=== PATIENT | male | born 1990 | race Caucasian/White ===

== ENCOUNTER 2023-05-24 04:02 | Inpatient (IN) ==
[2023-05-24] MEDS: SODIUM CHLORIDE 0.9% 1,000 ML IV ONE (04:33)
[2023-05-24 04:51] LABS: Albumin Globulin Ratio 2.3 (0.9-2); Albumin Level 4.8 gm/dl (3.4-5.0); BUN Creatinine Ratio 16.7 (10-20); Bilirubin,Total 0.3 mg/dl (0.2-1.0); Calcium 9.6 mg/dl (8.6-10.3); Creatinine Clr Calc Pharmacy 135.1 ml/min; Est GFR (African American) 135.2 ml/min; Est GFR (Non-African American) 116.7 ml/min; Globulin 2.1 gm/dl (2.5-4.0); Potassium 3.9 mmol/L (3.5-5.1); Total Protein 6.9 gm/dl (6.0-8.3)
[2023-05-24 04:52] LABS: Basophils # (auto) 0.05 K/uL (0.00-0.20); Basophils % (auto) 0.3 %; Eosinophils # (auto) 0.03 K/uL (0.00-0.50); Eosinophils % (auto) 0.2 %; Hematocrit (blood only) 41.1 % (42.0-52.0); Hemoglobin 14.7 g/dl (14.0-18.0); Immature Granulocytes # (auto) 0.06 K/uL (0.01-0.20); Immature Granulocytes % (auto) 0.4 %; Lymphocytes # (auto) 1.18 K/uL (1.20-3.40); Lymphocytes % (auto) 8.2 %; Mean Corpuscular Hemoglobin 32.9 pg (25.0-34.0); Mean Corpuscular Hgb Conc 35.8 g/dL (32.0-36.0); Mean Corpuscular Volume 91.9 fL (80.0-100.0); Mean Platelet Volume 9.2 fL (9.4-12.4); Monocytes # (auto) 0.75 K/uL (0.11-0.59); Monocytes % (auto) 5.2 %; Neutrophils % (auto) 85.7 %; Platelet Count 365 K/uL (130-400); RDW Coefficient of Variation 12.3 % (11.5-14.5); RDW Standard Deviation 41.5 fL (36.4-46.3); Red Blood Count 4.47 M/uL (4.70-6.10); White Blood Count 14.47 K/ul (4.8-10.8)
--- NOTE | 2023-05-24 05:00 | Emergency Department Note ---
Impression & Plan Status epilepticus, Traumatic hematoma of forehead Admit to the [facility] ED Provider Note NAME: SHLOMO [id number] MUMTAZ AGE: 32 SEX: Male INFORMANT: Patient and guards ED PROVIDER(S): Kathryn Thornton DO CHIEF COMPLAINT: Seizure PLAN: Disposition: Admit to the [facility] MEDICAL DECISION MAKING: This is a 32-year-old male patient from [facility] Miguelito who presents to the emergency department after having a seizure in his cell. Patient had been seen here yesterday for a polysubstance overdose. He was cleared and discharged back to the retirement. Was on a one-to-one with guards and had been sleeping. He woke up and went to the bathroom. He was pacing around the cell when he suffered a seizure fell to the ground striking his head on the toilet. Guards found him seizing. He became postictal and was brought back to the emergency department with a hematoma noted to his right forehead. Care/management discussed with: ar manager and [facility] Triage Nursing notes: Reviewed and agree with them. Vital Signs: reviewed and remarkable for hypertension and tachycardia Additional History obtained from: Nursing Home guards who are at the bedside Chronic Medical/Social Conditions affecting care: Epilepsy on Keppra and Depakote Prior/ Outside/ External records reviewed: Records that accompanied the patient from the retirement and his ED record from earlier this evening Differential Diagnosis: Epileptic seizure versus seizure secondary to his polysubstance overdose from yesterday Diagnostics, independently interpreted by me: ECG: Sinus tachycardia at a rate of [address] segment elevation or signs of ischemia. There is no ectopy. QTc was 451 ms. QRS duration was 88 ms. Cardiac Monitoring: Sinus tachycardia at 126 CT scan of the brain and cervical spine: As per stat read HPI: 32 year old Male arrives for evaluation of seizure. Patient had been discharged last evening from the emergency department after a polysubstance overdose and workup. He was back in his cell on a one-to-one with guards. Patient had been sleeping when he got up and was pacing about his present cell. Guards heard a thud and found him on the floor seizing, striking his head off the toilet. PAST MEDICAL HISTORY: Polysubstance overdose yesterday with Tylenol, laxative, Motrin. 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 Pupils are equal, round, and reactive to light. Extraocular eye muscles are intact and sclera are anicteric. There is an old contusion noted around the right eye. Ears - bilaterally patent canals with no evidence of hemotympanum. Nose - moist nasal mucosa without evidence of trauma or discharge. Mouth - moist buccal mucosa with no trauma to the teeth or signs of malocclusion. Neck: The cervical collar was removed while in-line stabilization was maintained. The neck is supple and there is no pain to palpation over the posterior cervical spine and no obvious step-offs or deformities. There is no JVD or tracheal deviation. Chest: There are no signs of deformities, contusions or abrasions to the chest wall. There is no obvious crepitus or paradoxical chest rise. Heart: Tachycardic rate and regular rhythm. There is a normal S1 and S2 with no murmurs, clicks, or gallops appreciated. Lungs: Clear to auscultation bilaterally with no wheezes, rales, or rhonchi. Abdomen: Soft, completely nontender, nondistended, with good bowel sounds. There is no sign of trauma such as contusions, abrasions or penetrations. There are no palpable pulsatile masses or hepatosplenomegaly. There is no guarding, rigidity, or rebound noted. Pelvis: Stable to rock and compression. Extremities: No obvious trauma, deformities, contusions, or edema. There are easily palpable peripheral pulses. Neuro: The patient is awake and alert and easily able to follow commands. Muscle strength is 5 out of 5 in all 4 extremities. Otherwise, neuro exam is unremarkable. Emergency department treatment: hospital monitor, IV Keppra, IV normal saline bolus, IV Ativan Emergency department course: The patient was evaluated in room A-10. I did review the records from yesterday with regards to his polysubstance overdose. Laboratory studies were drawn as above. Patient went for CT scan of the brain and cervical spine. Upon returning from radiology, the patient went into a tonic-clonic seizure. He was bolused with IV Ativan. The seizure stopped. The patient was bolused with IV normal saline solution. Patient was given a loading dose of IV Keppra. Patient was postictal for some time. Vitals began to return to normal. I discussed the case with the [facility] Hospitalist and they will evaluate for further inpatient care. Past Med/Surg History Social History Smoking Status: Light tobacco smoker Tobacco Type: Cigarettes Preferred Language: Turkmen Communication Ability: Effective Lending Consultant Required: No Current Living Situation: Other Current Living Situation Comment: retirement Feels Safe at Home: Yes Allergies Allergies Allergy/AdvReac Type Severity Reaction Status Date / Time Penicillins AdvReac Rash Verified 05/23/23 22:37 trazodone AdvReac Anxiety Verified 05/23/23 22:37 Home Meds Home Medications Medication Instructions Recorded Confirmed acetaminophen 325 mg tablet 325 mg PO TID PRN Pain 05/24/23 05/24/23 (Tylenol) calcium polycarbophil 625 mg 1,250 mg PO DAILY 05/24/23 05/24/23 tablet (FiberCon) divalproex 250 mg tablet,delayed 250 mg PO BID 05/24/23 05/24/23 release (Depakote) guanfacine 1 mg tablet 1 mg PO HS 05/24/23 05/24/23 ibuprofen 600 mg tablet 600 mg PO TID PRN Pain 05/24/23 05/24/23 levetiracetam 500 mg tablet 1,500 mg PO BID 05/24/23 05/24/23 (Keppra) mirtazapine 15 mg tablet (Remeron) 15 mg PO HS 05/24/23 05/24/23 paroxetine HCl 40 mg tablet (Paxil) 40 mg PO HS 05/24/23 05/24/23 sulfamethoxazole 800 1 tab PO BID 05/24/23 05/24/23 mg-trimethoprim 160 mg tablet (Bactrim DS) Results & Data (ED) Vital Signs Vital Signs - 24 hr 05/24/23 04:06 05/24/23 04:06 Temperature 36.9 C Temperature Source Oral Pulse Rate 126 H 137 H Respiratory Rate 19 Blood Pressure 150/81 H Blood Pressure Mean 104 Pulse Oximetry 94 Oxygen Delivery Method Room Air Sepsis Recent Fever Within 48 Hours No Sepsis New/Unexplained Change in Mental Status No Sepsis Action Taken by Nursing No Action Required Laboratory Data 05/25/23 05:27 05/25/23 05:27 Lab Results 05/24/23 05/24/23 Range/Units 04:16 06:40 WBC 14.47 H (4.8-10.8) K/ul RBC 4.47 L (4.70-6.10) M/uL Hgb 14.7 (14.0-18.0) g/dl Hct 41.1 L (42.0-52.0) % MCV 91.9 (80.0-100.0) fL MCH 32.9 (25.0-34.0) pg MCHC 35.8 (32.0-36.0) g/dL RDW Std Deviation 41.5 (36.4-46.3) fL RDW Coeff of James 12.3 (11.5-14.5) % Plt Count 365 (130-400) K/uL MPV 9.2 L (9.4-12.4) fL Immature Gran % (Auto) 0.4 % Neut % (Auto) 85.7 % Lymph % (Auto) 8.2 % [place] % (Auto) 5.2 % Eos % (Auto) 0.2 % Baso % (Auto) 0.3 % Neut # (Auto) 12.40 H (1.40-6.50) K/uL Lymph # (Auto) 1.18 L (1.20-3.40) K/uL [place] # (Auto) 0.75 H (0.11-0.59) K/uL Eos # (Auto) 0.03 (0.00-0.50) K/uL Baso # (Auto) 0.05 (0.00-0.20) K/uL Immature Gran # (Auto) 0.06 (0.01-0.20) K/uL Sodium 138 (136-145) mmol/L Potassium 3.9 (3.5-5.1) mmol/L Chloride 104 (98-107) mmol/L Carbon Dioxide 22 (21-32) mmol/L Anion Gap 12 H (3-11) BUN 14 (6-23) mg/dl Creatinine 0.84 (0.6-1.4) mg/dl Est Cr Clr Drug Dosing 135.1 ml/min Est GFR ( Amer) 135.2 ml/min Est GFR (Non-Af Amer) 116.7 ml/min BUN/Creatinine Ratio 16.7 (10-20) Glucose 80 (70-99(Fasting)) mg/dl Calcium 9.6 (8.6-10.3) mg/dl Total Bilirubin 0.3 (0.2-1.0) mg/dl AST 21 (13-39) U/L ALT 23 (7-52) U/L Alkaline Phosphatase 65 (34-104) U/L Total Protein 6.9 (6.0-8.3) gm/dl Albumin 4.8 (3.4-5.0) gm/dl Globulin 2.1 L (2.5-4.0) gm/dl Albumin/Globulin Ratio 2.3 H (0.9-2) Valproic Acid 17 L (50-100) mcg/ml Administered Medications Cephalexin HCl (Cephalexin 500 Mg Cap) 500 mg PO QID [facility]; Protocol Stop: 05/31/23 20:59 Last Admin: 05/25/23 08:57 Dose: 500 mg Documented By: Admin: 05/24/23 21:49 Dose: 500 mg Documented By: ISAÍAS Guanfacine HCl (Guanfacine Hcl 1 Mg Tab) 1 mg PO [facility] Stop: 06/23/23 20:59 Last Admin: 05/24/23 21:49 Dose: 1 mg Documented By: ISAÍAS Levetiracetam 1,500 mg/ Sodium (Chloride) 115 mls @ 460 mls/hr IV Q12H [facility]IDEN Stop: 06/23/23 10:29 Last Infusion: 05/25/23 11:15 Dose: Infused Documented By: Admin: 05/25/23 10:15 Dose: 460 mls/hr Documented By: Infusion: 05/24/23 22:09 Dose: Infused Documented By: Admin: 05/24/23 21:54 Dose: 460 mls/hr Documented By: Infusion: 05/24/23 10:43 Dose: Infused Documented By: Admin: 05/24/23 10:28 Dose: 460 mls/hr Documented By: REE Mirtazapine (Mirtazapine Tab 15 Mg Tab) 15 mg PO [facility] Stop: 06/23/23 20:59 Last Admin: 05/24/23 21:48 Dose: 15 mg Documented By: ISAÍAS Paroxetine HCl (Paroxetine Hcl 20 Mg Tab) 40 mg PO DAILY [facility]IDEN Stop: 06/23/23 10:29 Last Admin: 05/25/23 08:58 Dose: 40 mg Documented By: Admin: 05/24/23 10:28 Dose: 40 mg Documented By: REE Valproic Acid (Valproic Acid Soln 250 Mg/5 Ml Udc) 250 mg PO QAM AIDEN Stop: 06/24/23 08:59 Last Admin: 05/25/23 08:57 Dose: 250 mg Documented By: BryceO Discontinued Medications Sodium Chloride (Nss) 1,000 mls @ 999 mls/hr IV .Q1H1M ONE Stop: 05/24/23 05:26 Last Infusion: 05/24/23 06:07 Dose: Infused Documented By: Admin: 05/24/23 04:33 Dose: 999 mls/hr Documented By: KAREN Sodium Chloride (Nss) 1,000 mls @ 125 mls/hr IV .Q8H AIDEN Stop: 05/25/23 02:02 Last Infusion: 05/25/23 03:58 Dose: Infused Documented By: Admin: 05/24/23 19:58 Dose: 125 mls/hr Documented By: Infusion: 05/24/23 10:44 Dose: Infused Documented By: Admin: 05/24/23 10:29 Dose: 125 mls/hr Documented By: REE Valproic Acid 250 mg/ Dextrose 52.5 mls @ 55 mls/hr IV BID AIDEN Stop: 06/23/23 10:29 Last Infusion: 05/24/23 12:34 Dose: Infused Documented By: Admin: 05/24/23 10:51 Dose: 55 mls/hr Documented By: REE Valproic Acid 1,000 mg/ (Dextrose) 110 mls @ 110 mls/hr IV NOW STA Stop: 05/24/23 16:51 Last Infusion: 05/24/23 20:50 Dose: Infused Documented By: Admin: 05/24/23 17:36 Dose: 110 mls/hr Documented By: JODEE Levetiracetam (Levetiracetam 500 Mg/5 Ml Vial) 3,550 mg 40 mg/kg (3550 mg) IV NOW STA Stop: 05/24/23 05:29 Last Admin: 05/24/23 05:44 Dose: 3,550 mg Documented By: KAREN Lorazepam (Lorazepam 1 Mg/1 Ml Syr Ed Inj Use) Confirm Administered Dose 1 mg .ROUTE .STK-MED ONE Stop: 05/24/23 05:11 Last Admin: 05/24/23 05:21 Dose: Not Given Documented By: KAREN Lorazepam (Lorazepam 1 Mg/1 Ml Syr Ed Inj Use) Confirm Administered Dose 1 mg .ROUTE .STK-MED ONE Stop: 05/24/23 05:14 Last Admin: 05/24/23 05:21 Dose: Not Given Documented By: KAREN Lorazepam (Lorazepam 1 Mg/1 Ml Syr Ed Inj Use) 2 mg IV ONE STA Stop: 05/24/23 05:18 Last Admin: 05/24/23 05:18 Dose: 2 mg Documented By: KAREN Discharge Plan Visit Data Chief Complaint: Seizure Stated Complaint: SEIZURE ED Provider: Kathryn Thornton Discharge Problem: Status epilepticus, Traumatic hematoma of forehead Patient Disposition: Admitted As Inpatient Discharge Instructions Interventions: ED Discharge Assessment Last Done: 05/24/23 20:22 Discharge Problem: Traumatic hematoma of forehead Qualifiers: Encounter type: initial encounter Qualified Code(s): S00.83XA - Contusion of other part of head, initial encounter
[2023-05-24] MEDS: LORazepam 1 MG/1 ML SYR ED Inj Use IV STA (05:18)
[2023-05-24] MEDS: LORazepam 1 MG/1 ML SYR ED Inj Use ONE ×2 (05:21)
[2023-05-24] MEDS: levETIRAcetam 500 MG/5 ML VIAL IV STA (05:44)
--- NOTE | 2023-05-24 06:05 | CT Scan Report ---
Exam(s): CT HEAD Without Contrast EXAM: CT Head Without Intravenous Contrast CLINICAL HISTORY: Reason for exam: fall. TECHNIQUE: Axial computed tomography images of the head/brain without intravenous contrast. Automated exposure control was utilized for the study. A dose lowering technique was utilized adhering to the principles of ALARA. COMPARISON: Comparison made to prior head CT from February 13, 2023. FINDINGS: Brain: Unremarkable. No hemorrhage. No significant white matter disease. No edema. Ventricles: Unremarkable. No ventriculomegaly. 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 No acute fracture. Soft tissues: Mild soft tissue swelling over the right forehead. Sinuses: Unremarkable as visualized. No acute sinusitis. Mastoid air cells: Unremarkable as visualized. No mastoid effusion. IMPRESSION: No evidence of acute intracranial pathology. Electronically signed by: Yulisa Ortiz MD 05/24/23 06:04 AM
--- NOTE | 2023-05-24 06:06 | CT Scan Report ---
Exam(s): CT C SPINE EXAM: CT Cervical Spine Without Intravenous Contrast CLINICAL HISTORY: Reason for exam: fall. TECHNIQUE: Axial computed tomography images of the cervical spine without intravenous contrast. Automated exposure control was utilized for the study. A dose lowering technique was utilized adhering to the principles of ALARA. COMPARISON: No relevant prior studies available. FINDINGS: Vertebrae: Unremarkable. No acute fracture. Discs/spinal canal/neural foramina: No acute findings. No spinal canal stenosis. Soft tissues: Prominent cervical lymph nodes. IMPRESSION: No evidence of acute cervical spine pathology. Electronically signed by: Yulisa Ortiz MD 05/24/23 06:06 AM
--- NOTE | 2023-05-24 07:44 | History & Physical Report ---
Date of Service May 24, 2023 Assessment & Plan (1) Seizure: Plan: 32-year-old male with past medically significant for seizures, depression comes from alf because of seizures. Patient was in the ER earlier with intentional drug overdose. Seems he took 30 tablets of Tylenol, 6 tablets of Motrin and the pack of Bactrim and sleeve fiber medication yesterday evening was trying to kill himself. Seems patient is on Bactrim for finger infection. Patient was observed in the ER. After 4 hours post Tylenol ingestion level was 110 which is below toxic level and was discharged back to alf. In alf patient had a seizure episode in the bathroom and strike his head on the toilet and was brought in here. Initially he was alert and awake as per ER but again he had another episode of seizure in the ER. He was given IV Keppra and IV Ativan in the ER. Currently patient is somewhat drowsy but arousable. Can tell his name. Knows he is in the hospital. Knows the year. But thinks its January. States has some headache. Denies any runny nose or sore throat. Denies cough. Denies any chest pain or shortness of breath. Denies nausea. Denies abdominal pain. Able to move his extremities on command. Seizures History of seizures Had one episode in the alf And another episode in the ER when he was treated as status epilepticus loaded with high-dose IV Keppra and IV Ativan Currently somewhat drowsy but arousable and seems comfortable Will continue with IV Keppra 1500 mg twice daily and IV Depakote 50 mg twice daily home dose Follow-up Keppra levels and Depakote levels IV Ativan as needed for breakthrough seizures EEG Seizure precautions Neurology consult Telemetry Psychiatric illness Continue home medications Intentional drug overdose With Tylenol, ibuprofen, Bactrim and fiber medication Suicidal attempt Will follow repeat Tylenol levels and LFTs and PT/INR Suicide precautions One-on-one Psych consult DVT prophylaxis SCDs for now Disposition telemetry Full code History of Present Illness Chief Complaint: Seizures Primary Care Provider: SANJEEV Farley 32-year-old male with past medical history significant for seizures, depression comes from alf because of seizures. Patient was in the ER earlier with intentional drug overdose. Seems he took 30 tablets of Tylenol, 6 tablets of Motrin and the pack of Bactrim and sleeve fiber medication yesterday evening as was trying to kill himself. Seems patient is on Bactrim for finger infection. Patient was observed in the ER. After 4 hours post Tylenol ingestion level was 110 which is below toxic level and was discharged back to alf. In alf patient had a seizure episode in the bathroom and strike his head on the toilet and was brought in here. Initially he was alert and awake as per ER but again he had another episode of seizure in the ER. He was given IV Keppra and IV Ativan in the ER. Currently patient is somewhat drowsy but arousable. Can tell his name. Knows he is in the hospital. Knows the year. But thinks its January. States has some headache. Denies any runny nose or sore throat. Denies cough. Denies any chest pain or shortness of breath. Denies nausea. Denies abdominal pain. Able to move his extremities on command. Past medical history. As mentioned above Past surgical history. Patient denies any surgeries. Social history. Patient denies smoking alcohol or drugs. Family history. Patient states as far as he knows no family history Allergies Allergy/AdvReac Type Severity Reaction Status Date / Time Penicillins AdvReac Rash Verified 05/23/23 22:37 trazodone AdvReac Anxiety Verified 05/23/23 22:37 Home Medications Medication Instructions Recorded Confirmed Type calcium polycarbophil 625 mg 1,250 mg PO DAILY 05/24/23 05/24/23 History tablet (FiberCon) divalproex 250 mg tablet,delayed 250 mg PO BID 05/24/23 05/24/23 History release (Depakote) guanfacine 1 mg tablet 1 mg PO HS 05/24/23 05/24/23 History ibuprofen 600 mg tablet 600 mg PO TID PRN Pain 05/24/23 05/24/23 History levetiracetam 500 mg tablet 1,500 mg PO BID 05/24/23 05/24/23 History (Keppra) mirtazapine 15 mg tablet (Remeron) 15 mg PO HS 05/24/23 05/24/23 History paroxetine HCl 40 mg tablet (Paxil) 40 mg PO DAILY 05/24/23 05/24/23 History sulfamethoxazole 800 1 tab PO BID 05/24/23 05/24/23 History mg-trimethoprim 160 mg tablet (Bactrim DS) Past Med/Surg History Social History Smoking Status: Light tobacco smoker Tobacco Type: Cigarettes Preferred Language: Bahraini Feels Safe at Home: Yes Review of Systems Review of Systems: Unobtainable due to reduced consciousness Physical Exam Physical Exam: General- rowsy but arousable Head- bruise seen on the face Eyes- PERRL. ENT- blood on tounge seen. Neck- supple, no JVD. Lungs- clear to auscultation no wheezing or crackles. Heart- regular rhythm; no murmur, no gallop. Abdomen- normal bowel sounds, soft, nontender, no distension Extremities- no pretibial edema, no erythema seen. Neuro- alert, oriented x 2; PERRL, no facial palsy; no dysarthria; moves extremities. Results & Data Results & Data Vital Signs (Past 12 Hours) Vital Signs Temp Pulse Resp BP Pulse Ox O2 Del Method 05/24/23 05:30 144 H 97 05/24/23 05:30 155 H 19 136/73 97 05/24/23 05:20 155 H 05/24/23 05:16 148 H 19 152/79 H 95 05/24/23 05:16 148 H 95 05/24/23 05:14 148 H 97 05/24/23 05:14 148 H 20 155/86 H 97 05/24/23 05:02 111 H 20 94 05/24/23 04:40 113 H 17 95 05/24/23 04:30 120 H 20 94 05/24/23 04:20 128 H 22 95 05/24/23 04:10 130 H 27 H 05/24/23 04:06 137 H 05/24/23 04:06 36.9 C 126 H 19 150/81 H 94 Room Air 05/24/23 04:05 136 H 25 H 150/81 H 95 05/24/23 04:05 136 H 25 H Diagnostic Findings Laboratory Results WBC 14.47 K/ul (4.8-10.8) H 05/24/23 04:16 RBC 4.47 M/uL (4.70-6.10) L 05/24/23 04:16 Hgb 14.7 g/dl (14.0-18.0) 05/24/23 04:16 Hct 41.1 % (42.0-52.0) L 05/24/23 04:16 MCV 91.9 fL (80.0-100.0) 05/24/23 04:16 MCH 32.9 pg (25.0-34.0) 05/24/23 04:16 MCHC 35.8 g/dL (32.0-36.0) 05/24/23 04:16 RDW Std Deviation 41.5 fL (36.4-46.3) 05/24/23 04:16 RDW Coeff of James 12.3 % (11.5-14.5) 05/24/23 04:16 Plt Count 365 K/uL (130-400) 05/24/23 04:16 MPV 9.2 fL (9.4-12.4) L 05/24/23 04:16 Immature Gran % (Auto) 0.4 % 05/24/23 04:16 Neut % (Auto) 85.7 % 05/24/23 04:16 Lymph % (Auto) 8.2 % 05/24/23 04:16 [place] % (Auto) 5.2 % 05/24/23 04:16 Eos % (Auto) 0.2 % 05/24/23 04:16 Baso % (Auto) 0.3 % 05/24/23 04:16 Neut # (Auto) 12.40 K/uL (1.40-6.50) H 05/24/23 04:16 Lymph # (Auto) 1.18 K/uL (1.20-3.40) L 05/24/23 04:16 [place] # (Auto) 0.75 K/uL (0.11-0.59) H 05/24/23 04:16 Eos # (Auto) 0.03 K/uL (0.00-0.50) 05/24/23 04:16 Baso # (Auto) 0.05 K/uL (0.00-0.20) 05/24/23 04:16 Immature Gran # (Auto) 0.06 K/uL (0.01-0.20) 05/24/23 04:16 Sodium 138 mmol/L (136-145) 05/24/23 04:16 Potassium 3.9 mmol/L (3.5-5.1) 05/24/23 04:16 Chloride 104 mmol/L (98-107) 05/24/23 04:16 Carbon Dioxide 22 mmol/L (21-32) 05/24/23 04:16 Anion Gap 12 (3-11) H 05/24/23 04:16 BUN 14 mg/dl (6-23) 05/24/23 04:16 Creatinine 0.84 mg/dl (0.6-1.4) 05/24/23 04:16 Est Cr Clr Drug Dosing 135.1 ml/min 05/24/23 04:16 Est GFR ( Amer) 135.2 ml/min 05/24/23 04:16 Est GFR (Non-Af Amer) 116.7 ml/min 05/24/23 04:16 BUN/Creatinine Ratio 16.7 (10-20) 05/24/23 04:16 Glucose 80 mg/dl (70-99(Fasting)) 05/24/23 04:16 Calcium 9.6 mg/dl (8.6-10.3) 05/24/23 04:16 Total Bilirubin 0.3 mg/dl (0.2-1.0) 05/24/23 04:16 AST 21 U/L (13-39) 05/24/23 04:16 ALT 23 U/L (7-52) 05/24/23 04:16 Alkaline Phosphatase 65 U/L (34-104) 05/24/23 04:16 Total Protein 6.9 gm/dl (6.0-8.3) 05/24/23 04:16 Albumin 4.8 gm/dl (3.4-5.0) 05/24/23 04:16 Globulin 2.1 gm/dl (2.5-4.0) L 05/24/23 04:16 Albumin/Globulin Ratio 2.3 (0.9-2) H 05/24/23 04:[address] 05/24/23 04:26 Exam(s): CT C SPINE EXAM: CT Cervical Spine Without Intravenous Contrast CLINICAL HISTORY: Reason for exam: fall. TECHNIQUE: Axial computed tomography images of the cervical spine without intravenous contrast. Automated exposure control was utilized for the study. A dose lowering technique was utilized adhering to the principles of ALARA. COMPARISON: No relevant prior studies available. FINDINGS: Vertebrae: Unremarkable. No acute fracture. Discs/spinal canal/neural foramina: No acute findings. No spinal canal stenosis. Soft tissues: Prominent cervical lymph nodes. IMPRESSION: No evidence of acute cervical spine pathology. Electronically signed by: Yulisa Ortiz MD 05/24/23 06:[address] 05/24/23 04:26 Exam(s): CT HEAD Without Contrast EXAM: CT Head Without Intravenous Contrast CLINICAL HISTORY: Reason for exam: fall. TECHNIQUE: Axial computed tomography images of the head/brain without intravenous contrast. Automated exposure control was utilized for the study. A dose lowering technique was utilized adhering to the principles of ALARA. COMPARISON: Comparison made to prior head CT from February 13, 2023. FINDINGS: Brain: Unremarkable. No hemorrhage. No significant white matter disease. No edema. Ventricles: Unremarkable. No ventriculomegaly. 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 No acute fracture. Soft tissues: Mild soft tissue swelling over the right forehead. Sinuses: Unremarkable as visualized. No acute sinusitis. Mastoid air cells: Unremarkable as visualized. No mastoid effusion. IMPRESSION: No evidence of acute intracranial pathology. Electronically signed by: Yulisa Ortiz MD 05/24/23 06:04 AM ECG Additional Comments: ECG. Sinus tachycardia rate of 131. Nonspecific T wave abnormalities Code Status & VTE Plan VTE Prophylaxis Plan VTE Prophylaxis will be ordered: Yes
[2023-05-24 08:27] LABS: Basophils # (auto) 0.03 K/uL (0.00-0.20); Basophils % (auto) 0.3 %; Eosinophils # (auto) 0.01 K/uL (0.00-0.50); Eosinophils % (auto) 0.1 %; Hematocrit (blood only) 36.7 % (42.0-52.0); Hemoglobin 13.4 g/dl (14.0-18.0); Immature Granulocytes # (auto) 0.04 K/uL (0.01-0.20); Immature Granulocytes % (auto) 0.4 %; Lymphocytes # (auto) 0.96 K/uL (1.20-3.40); Lymphocytes % (auto) 8.6 %; Mean Corpuscular Hemoglobin 33.5 pg (25.0-34.0); Mean Corpuscular Hgb Conc 36.5 g/dL (32.0-36.0); Mean Corpuscular Volume 91.8 fL (80.0-100.0); Mean Platelet Volume 9.3 fL (9.4-12.4); Monocytes % (auto) 6.2 %; Neutrophils # (auto) 9.48 K/uL (1.40-6.50); Neutrophils % (auto) 84.4 %; Platelet Count 323 K/uL (130-400); RDW Coefficient of Variation 12.5 % (11.5-14.5); RDW Standard Deviation 41.9 fL (36.4-46.3); White Blood Count 11.22 K/ul (4.8-10.8)
[2023-05-24 08:47] LABS: Albumin Globulin Ratio 2.3 (0.9-2); Albumin Level 4.3 gm/dl (3.4-5.0); BUN Creatinine Ratio 11.5 (10-20); Bilirubin Direct 0.1 mg/dl (0-0.2); Bilirubin,Total 0.3 mg/dl (0.2-1.0); Calcium 8.7 mg/dl (8.6-10.3); Creatinine Clr Calc Pharmacy 109.1 ml/min; Est GFR (African American) 110.4 ml/min; Est GFR (Non-African American) 95.2 ml/min; Globulin 1.9 gm/dl (2.5-4.0); Potassium 4.5 mmol/L (3.5-5.1); Total Protein 6.2 gm/dl (6.0-8.3)
[2023-05-24 08:52] LABS: INR 1.1 (0.9-1.1); Prothrombin Time 11.6 Seconds (9.0-12.0)
[2023-05-24] MEDS ORDERED: LORazepam 2 MG in SYRINGE 1 ML IV PRN (10:03)
[2023-05-24] MEDS ORDERED: NITROGLYCERIN SL 0.4 MG/TAB TAB SL PRN (10:03)
[2023-05-24] MEDS: PARoxetine HCL 20 MG TAB PO SCH (10:28)
[2023-05-24] MEDS: levETIRAcetam IV 1,500 MG in 0.9 % SODIUM CHLORIDE 100 ML IV SCH (10:28)
[2023-05-24] MEDS: SODIUM CHLORIDE 0.9% 1,000 ML IV SCH (10:29)
[2023-05-24] MEDS: VALPROATE SOD 250 MG in DEXTROSE 5% 50 ML IV SCH (10:51)
--- NOTE | 2023-05-24 11:11 | Electrocardiogram Report ---
Test Reason : Blood Pressure : / mmHG Vent. Rate : 131 BPM Atrial Rate : 131 BPM P-R Int : 130 ms QRS Dur : 088 ms QT Int : 306 ms P-R-T Axes : 073 062 078 degrees QTc Int : 451 ms Sinus tachycardia Otherwise normal ECG When compared with ECG of 23-MAY-2023 20:49, (unconfirmed) Vent. rate has increased BY [address] no longer elevated in Anterior leads Nonspecific T wave abnormality now evident in Lateral leads Confirmed by Jacek Rodriguez ([id number]) on 05/24/2023 11:11:35 AM Referred By: Miguelito SCI Confirmed By:Yoan Rodriguez
--- NOTE | 2023-05-24 16:08 | Psychiatric Consultation ---
Date of Consultation May 24, 2023 Psych History History of Present Illness this is a limited consult as patient is an inmate as SANJEEV Farley. Dr. Dumas was contacted and had no management concerns. the patient's psychiatric medications are managed by the care home. He was seen in ED on 05/23 following polydrug OD (did not include his seizure or psych meds) and was monitored for Tylenol ingestion. He returned to care home and has since had several witnessed seizures with post ictal state. Whether or not the patient reported his initial ingestion as a suicide attempte, our service does not have additional intervention to recommend while receiving medical care on the floor. He should remain on suicide precautions with guards present pending return to the care home on suicide watch/care home safety protocols until evaluated by his treating clinicians there. He is not a candidate for inpatient psychiatric care as he is an inmate and any forensic referrals would be at the discretion of the care home. Liaison remains available should an acute behavioral management issue arise while hospitalized (code ulloa). Allergies Allergy/AdvReac Type Severity Reaction Status Date / Time Penicillins AdvReac Rash Verified 05/23/23 22:37 trazodone AdvReac Anxiety Verified 05/23/23 22:37 Home Medications Medication Instructions Recorded Confirmed Type acetaminophen 325 mg tablet 325 mg PO TID PRN Pain 05/24/23 05/24/23 History (Tylenol) calcium polycarbophil 625 mg 1,250 mg PO DAILY 05/24/23 05/24/23 History tablet (FiberCon) divalproex 250 mg tablet,delayed 250 mg PO BID 05/24/23 05/24/23 History release (Depakote) guanfacine 1 mg tablet 1 mg PO HS 05/24/23 05/24/23 History ibuprofen 600 mg tablet 600 mg PO TID PRN Pain 05/24/23 05/24/23 History levetiracetam 500 mg tablet 1,500 mg PO BID 05/24/23 05/24/23 History (Keppra) mirtazapine 15 mg tablet (Remeron) 15 mg PO HS 05/24/23 05/24/23 History paroxetine HCl 40 mg tablet (Paxil) 40 mg PO HS 05/24/23 05/24/23 History sulfamethoxazole 800 1 tab PO BID 05/24/23 05/24/23 History mg-trimethoprim 160 mg tablet (Bactrim DS) Patient History Social History Smoking Status: Light tobacco smoker Tobacco Type: Cigarettes Preferred Language: Taiwanese Communication Ability: Effective 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 Current Living Situation: Other Current Living Situation Comment: care home Feels Safe at Home: Yes Physical Exam Vital Signs (Past 24 Hours): Last Vital Signs Temp 36.9 C 05/24/23 04:06 Pulse 86 05/24/23 13:00 Resp 17 05/24/23 13:00 BP 115/74 05/24/23 13:00 Pulse Ox 98 05/24/23 13:00 O2 Del Method Room Air 05/24/23 11:49 O2 Flow Rate 2 05/24/23 11:45 Results & Data (PSY) Medications Administered Sodium Chloride (Nss) 1,000 mls @ 125 mls/hr IV .Q8H AIDEN Stop: 05/25/23 02:02 Last Infusion: 05/24/23 10:44 Dose: Infused Documented By: Admin: 05/24/23 10:29 Dose: 125 mls/hr Documented By: REE Levetiracetam 1,500 mg/ Sodium (Chloride) 115 mls @ 460 mls/hr IV Q12H AIDEN Stop: 06/23/23 10:29 Last Infusion: 05/24/23 10:43 Dose: Infused Documented By: Admin: 05/24/23 10:28 Dose: 460 mls/hr Documented By: REE Valproic Acid 250 mg/ Dextrose 52.5 mls @ 55 mls/hr IV BID AIDEN Stop: 06/23/23 10:29 Last Infusion: 05/24/23 12:34 Dose: Infused Documented By: Admin: 05/24/23 10:51 Dose: 55 mls/hr Documented By: REE Paroxetine HCl (Paroxetine Hcl 20 Mg Tab) 40 mg PO DAILY AIDEN Stop: 06/23/23 10:29 Last Admin: 05/24/23 10:28 Dose: 40 mg Documented By: REE Coding Level of Care Code None
--- NOTE | 2023-05-24 16:11 | Neurology Consultation ---
Date of Consultation May 24, 2023 Assessment & Plan (1) Breakthrough seizure: In the setting of low Depakote level. The patient reports prior breakthrough seizures in March and possibly February. Plan Noted that Depakote level is on the low side. Suggest Depakote 1 g IV as a loading dose. Consider increasing Depakote to 250 mg in the morning and 500 in the evening. Continue Keppra 1500 twice daily. Check valproic acid level in 1 week and follow-up with neurology as outpatient. Telehealth Consultation Telehealth Information Telehealth Information: I performed this visit using a real-time telehealth connection between my location and the patients location ([facility]). After connecting through interactive tele-video, patient was identified by name and date of and/or wristband check.Patient (or authorized healthcare product support representative) was informed that this was a telemedicine visit and it was being conducted confidentially over secure lines. My office door was closed and no one else was present in the room with me.Patient (or authorized healthcare product support representative) provided consent to proceed with the visit, expressed an understanding of privacy and security of the telemedicine visit, and gave permission to have a hospital product support representative in the room in order to assist with the visit and to conduct portions of the visit, as needed. I informed the patient (or authorized healthcare product support representative) that I reviewed their record and presented the opportunity for them to ask any questions regarding the visit today. The patient agreed to participate. History of Present Illness Reason for Consultation: Breakthrough seizures Requesting Physician: Salma Dumas MD Attending Physician: Salma Dumas MD History of Present Illness Mr Rodríguez , Densuziees seizures, depression comes from group home because of seizures. Patient was in the ER earlier with intentional drug overdose. With Tylenol, ibuprofen and Bactrim. Today he was brought in after a seizure event that happened while he was in group home. Patient reports feeling nauseous and went to the bathroom and then he had a seizure or loss consciousness with generalized shaking, he did hit his head and is left with a bruise specifically around his right. He denies any focal neurological weakness the patient is back to baseline curr ently he has no dizziness, no confusion or slurred speech. He tells me that he started having seizures at age 14 after they stopped his Depakote all of a sudden. Depakote was initially started for mood stabilization at age 13. Allergies Allergy/AdvReac Type Severity Reaction Status Date / Time Penicillins AdvReac Rash Verified 05/23/23 22:37 trazodone AdvReac Anxiety Verified 05/23/23 22:37 Home Medications Medication Instructions Recorded Confirmed Type acetaminophen 325 mg tablet 325 mg PO TID PRN Pain 05/24/23 05/24/23 History (Tylenol) calcium polycarbophil 625 mg 1,250 mg PO DAILY 05/24/23 05/24/23 History tablet (FiberCon) divalproex 250 mg tablet,delayed 250 mg PO BID 05/24/23 05/24/23 History release (Depakote) guanfacine 1 mg tablet 1 mg PO HS 05/24/23 05/24/23 History ibuprofen 600 mg tablet 600 mg PO TID PRN Pain 05/24/23 05/24/23 History levetiracetam 500 mg tablet 1,500 mg PO BID 05/24/23 05/24/23 History (Keppra) mirtazapine 15 mg tablet (Remeron) 15 mg PO HS 05/24/23 05/24/23 History paroxetine HCl 40 mg tablet (Paxil) 40 mg PO HS 05/24/23 05/24/23 History sulfamethoxazole 800 1 tab PO BID 05/24/23 05/24/23 History mg-trimethoprim 160 mg tablet (Bactrim DS) Patient History Social History Smoking Status: Light tobacco smoker Tobacco Type: Cigarettes Preferred Language: Polish Communication Ability: Effective 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 Solutions 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 Required: No Current Living Situation: Other Current Living Situation Comment: group home Feels Safe at Home: Yes Review of Systems Review of systems is otherwise negative Physical Exam General Constitutional: Appearance normally developed the patient has periorbital bruises, also bruises over his right eyebrow Head and face: normocephalic and atraumatic Eyes: no ptosis, no anisocoria, and no dysconjugate gaze Respiratory: normal effort Cardiovascular: regular rhythm and regular rate Abdomen: non distended Skin: no rashes, lesions, or ulcers noted Psychiatric: normal judgement and insight, normal mood, and normal affect NEUROLOGIC EXAMINATION: Mental Status:alert, oriented to time, place, person, normal recent memory, normal remote memory, normal attention span, normal concentration, normal language and normal fund of knowledge Cranial Nerves: CN 2 - no visual defect on confrontation and pupils round, equal, reactive to light CN 3, 4, 6 - extra-ocular movements intact and no nystagmus CN 5 - facial sensation intact CN 7 - no facial asymmetry CN 8 - intact hearing CN 9, 10 - palate symmetric, normal gag CN 11 - good shoulder shrug CN 12 - tongue midline MOTOR: Strength was at least antigravity throughout, Pronator drift was absent and There were no abnormal movements SENSATION: intact and symmetric to pinprick, light touch, vibration and joint position GAIT: deferred COORDINATION: no ataxia with finger to nose testing and heel to florentino testing REFLEXES: cannot assess over telemedicine Results & Data Vital Signs (Past 12 Hours) Vital Signs Temp Pulse Pulse Resp BP BP Pulse Ox 05/24/23 13:00 86 17 98 05/24/23 13:00 115/74 05/24/23 12:45 106/78 05/24/23 12:45 87 18 97 05/24/23 12:30 76 14 94 05/24/23 12:30 96/65 L 05/24/23 12:15 72 16 97 05/24/23 12:15 107/73 05/24/23 12:00 83 14 05/24/23 12:00 99/71 L 05/24/23 11:49 82 14 98/72 L 97 05/24/23 11:45 98/72 L 05/24/23 11:45 76 16 05/24/23 11:45 78 12 98/72 L 98 05/24/23 11:30 94 H 18 05/24/23 11:30 98/74 L 05/24/23 11:15 94 H 13 05/24/23 11:15 93/69 L 05/24/23 11:00 111/80 05/24/23 11:00 98 H 20 05/24/23 10:45 76 14 97/66 L 05/24/23 10:30 108 H 20 113/77 97 05/24/23 10:15 83 20 112/72 96 05/24/23 10:00 83 14 109/72 96 05/24/23 09:45 79 14 112/75 97 05/24/23 09:30 98 H 16 108/80 96 05/24/23 09:00 88 14 105/67 05/24/23 08:45 86 16 105/76 05/24/23 08:31 105 H 05/24/23 08:30 106 H 16 98/71 L 05/24/23 08:15 91 H 16 99/71 L 05/24/23 08:00 97 H 16 97/70 L 05/24/23 07:45 107 H 16 93/60 L 05/24/23 07:30 112 H 16 93/64 L 05/24/23 07:15 114 H 16 96/64 L 05/24/23 07:00 112 H 16 117/67 05/24/23 06:45 145 H 22 112/84 05/24/23 06:30 127 H 18 99/64 L 91 05/24/23 06:15 128 H 18 93/65 L 92 05/24/23 06:00 128 H 16 116/71 95 05/24/23 05:45 144 H 20 126/67 97 05/24/23 05:30 144 H 97 05/24/23 05:30 155 H 19 136/73 97 05/24/23 05:20 155 H 05/24/23 05:16 148 H 19 152/79 H 95 05/24/23 05:16 148 H 95 05/24/23 05:14 148 H 97 05/24/23 05:14 148 H 20 155/86 H 97 05/24/23 05:02 111 H 20 94 05/24/23 04:40 113 H 17 95 05/24/23 04:30 120 H 20 94 05/24/23 04:20 128 H 22 95 05/24/23 04:10 130 H 27 H 05/24/23 04:06 137 H 05/24/23 04:06 36.9 C 126 H 19 150/81 H 94 05/24/23 04:05 136 H 25 H 150/81 H 95 05/24/23 04:05 136 H 25 H O2 Del Method O2 Flow Rate 05/24/23 13:00 05/24/23 13:00 05/24/23 12:45 05/24/23 12:45 05/24/23 12:30 05/24/23 12:30 05/24/23 12:15 05/24/23 12:15 05/24/23 12:00 05/24/23 12:00 05/24/23 11:49 Room Air 05/24/23 11:45 05/24/23 11:45 05/24/23 11:45 Nasal Cannula 2 05/24/23 11:30 05/24/23 11:30 05/24/23 11:15 05/24/23 11:15 05/24/23 11:00 05/24/23 11:00 05/24/23 10:45 05/24/23 10:30 Nasal Cannula 2 05/24/23 10:15 Nasal Cannula 2 05/24/23 10:00 Nasal Cannula 2 05/24/23 09:45 Nasal Cannula 2 05/24/23 09:30 Nasal Cannula 2 05/24/23 09:00 05/24/23 08:45 05/24/23 08:31 05/24/23 08:30 05/24/23 08:15 05/24/23 08:00 05/24/23 07:45 05/24/23 07:30 05/24/23 07:15 05/24/23 07:00 05/24/23 06:45 05/24/23 06:30 05/24/23 06:15 Room Air 05/24/23 06:00 Room Air 05/24/23 05:45 Room Air 05/24/23 05:30 05/24/23 05:30 05/24/23 05:20 05/24/23 05:16 05/24/23 05:16 05/24/23 05:14 05/24/23 05:14 05/24/23 05:02 05/24/23 04:40 05/24/23 04:30 05/24/23 04:20 05/24/23 04:10 05/24/23 04:06 05/24/23 04:06 Room Air 05/24/23 04:05 05/24/23 04:05 Laboratory Results Laboratory Results - last 24 hr 05/24/23 05/24/23 05/24/23 04:16 06:40 08:07 WBC 14.47 H 11.22 H RBC 4.47 L 4.00 L Hgb 14.7 13.4 L Hct 41.1 L 36.7 L MCV 91.9 91.8 MCH 32.9 33.5 MCHC 35.8 36.5 H RDW Std Deviation 41.5 41.9 RDW Coeff of James 12.3 12.5 Plt Count 365 323 MPV 9.2 L 9.3 L Immature Gran % (Auto) 0.4 0.4 Neut % (Auto) 85.7 84.4 Lymph % (Auto) 8.2 8.6 Ingham % (Auto) 5.2 6.2 Eos % (Auto) 0.2 0.1 Baso % (Auto) 0.3 0.3 Neut # (Auto) 12.40 H 9.48 H Lymph # (Auto) 1.18 L 0.96 L Ingham # (Auto) 0.75 H 0.70 H Eos # (Auto) 0.03 0.01 Baso # (Auto) 0.05 0.03 Immature Gran # (Auto) 0.06 0.04 PT 11.6 INR 1.1 Sodium 138 139 Potassium 3.9 4.5 Chloride 104 108 H Carbon Dioxide 22 26 Anion Gap 12 H 5 BUN 14 12 Creatinine 0.84 1.04 Est Cr Clr Drug Dosing 135.1 109.1 Est GFR ( Amer) 135.2 110.4 Est GFR (Non-Af Amer) 116.7 95.2 BUN/Creatinine Ratio 16.7 11.5 Glucose 80 92 Calcium 9.6 8.7 Total Bilirubin 0.3 0.3 Direct Bilirubin 0.1 AST 21 22 ALT 23 23 Alkaline Phosphatase 65 58 Total Protein 6.9 6.2 Albumin 4.8 4.3 Globulin 2.1 L 1.9 L Albumin/Globulin Ratio 2.3 H 2.3 H Acetaminophen 43 H Valproic Acid 17 L Levetiracetam Pending Diagnostic Findings Cervical Spine CT 05/24/23 04:26 Exam(s): CT C SPINE EXAM: CT Cervical Spine Without Intravenous Contrast CLINICAL HISTORY: Reason for exam: fall. TECHNIQUE: Axial computed tomography images of the cervical spine without intravenous contrast. Automated exposure control was utilized for the study. A dose lowering technique was utilized adhering to the principles of ALARA. COMPARISON: No relevant prior studies available. FINDINGS: Vertebrae: Unremarkable. No acute fracture. Discs/spinal canal/neural foramina: No acute findings. No spinal canal stenosis. Soft tissues: Prominent cervical lymph nodes. IMPRESSION: No evidence of acute cervical spine pathology. Electronically signed by: Yulisa Ortiz MD 05/24/23 06:[address] 05/24/23 04:26 Exam(s): CT HEAD Without Contrast EXAM: CT Head Without Intravenous Contrast CLINICAL HISTORY: Reason for exam: fall. TECHNIQUE: Axial computed tomography images of the head/brain without intravenous contrast. Automated exposure control was utilized for the study. A dose lowering technique was utilized adhering to the principles of ALARA. COMPARISON: Comparison made to prior head CT from February 13, 2023. FINDINGS: Brain: Unremarkable. No hemorrhage. No significant white matter disease. No edema. Ventricles: Unremarkable. No ventriculomegaly. 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 No acute fracture. Soft tissues: Mild soft tissue swelling over the right forehead. Sinuses: Unremarkable as visualized. No acute sinusitis. Mastoid air cells: Unremarkable as visualized. No mastoid effusion. IMPRESSION: No evidence of acute intracranial pathology. Electronically signed by: Yulisa Ortiz MD 05/24/23 06:04 AM Medications Administered Home Medications Medication Instructions Recorded Confirmed Last Taken acetaminophen 325 mg tablet 325 mg PO TID PRN Pain 05/24/23 05/24/23 05/21/23 (Tylenol) calcium polycarbophil 625 mg 1,250 mg PO DAILY 05/24/23 05/24/23 05/21/23 tablet (FiberCon) divalproex 250 mg tablet,delayed 250 mg PO BID 05/24/23 05/24/23 05/23/23 release (Depakote) guanfacine 1 mg tablet 1 mg PO HS 05/24/23 05/24/23 05/22/23 ibuprofen 600 mg tablet 600 mg PO TID PRN Pain 05/24/23 05/24/23 05/23/23 levetiracetam 500 mg tablet 1,500 mg PO BID 05/24/23 05/24/23 05/23/23 (Keppra) mirtazapine 15 mg tablet (Remeron) 15 mg PO HS 05/24/23 05/24/23 05/22/23 paroxetine HCl 40 mg tablet (Paxil) 40 mg PO HS 05/24/23 05/24/23 05/22/23 sulfamethoxazole 800 1 tab PO BID 05/24/23 05/24/23 05/22/23 mg-trimethoprim 160 mg tablet (Bactrim DS) Active Medications Generic Name Dose Route Start Last Admin Trade Name Freq PRN Reason Stop Dose Admin Sodium Chloride 1,000 mls @ 125 mls/hr 05/24/23 10:03 05/24/23 10:44 Nss IV 05/25/23 02:02 Infused .Q8H AIDEN Infusion Levetiracetam 1,500 mg/ Sodium 115 mls @ 460 mls/hr 05/24/23 10:30 05/24/23 10:43 Chloride IV 06/23/23 10:29 Infused Q12H AIDEN Infusion Valproic Acid 250 mg/ Dextrose 52.5 mls @ 55 mls/hr 05/24/23 10:30 05/24/23 12:34 IV 06/23/23 10:29 Infused BID AIDEN Infusion Paroxetine HCl 40 mg 05/24/23 10:30 05/24/23 10:28 Paroxetine Hcl 20 Mg Tab PO 06/23/23 10:29 40 mg DAILY AIDEN Administration
--- NOTE | 2023-05-24 16:47 | Communication Note ---
Date of Service: May 24, 2023 Patient evaluated at bedside. Endorses fatigue, but otherwise denies any acute concerns. Exam notable for hematoma on right forehead in hair line, and wound of fifth digit with skin avulsed from tip and nail that appears loose--otherwise no apparent signs of infection noted. Mr. Rodríguez is a 32 year old male with history of seizures, depression, mood disorder admitted for evaluation of seizures after suicide attempt and fall with blunt head trauma. Patient attempted to take a mix of tylenol, ibuprofen, and bactrim. Initial ED evaluation revealed < 100 tylenol level and patient discharged. Patient endorsed nausea, attempted to vomit in cell--fell and struck his head. Patient also has wound of right fifth digit, for which bactrim was started. Wound wrapped in gauze and tape last changed 05/23 prior to arrival. #Seizures -low depakote level Noted that Depakote level is on the low side. Reviewed neurology notes s/p Depakote 1 g IV as a loading dose. Started Depakote to 250 mg in the morning and 500 in the evening. Continue Keppra 1500 twice daily. Check valproic acid level in 1 week and follow-up with neurology as outpatient. #Depression #Suicidal ideation #Mood disorder Continue mirtazapine, paroxetine increased depakote as above #Right finger wound -Keflex QID -Wound care nurse Rest of plan per HP
[2023-05-24] MEDS: VALPROATE SOD 1,000 MG in DEXTROSE 5% 100 ML IV STA (17:36)
[2023-05-24] MEDS: MIRTAZAPINE TAB 15 MG TAB PO SCH (21:48)
[2023-05-24] MEDS: cephALEXin 500 MG CAP PO SCH (21:49)
[2023-05-24] MEDS: guanFACINE HCL 1 MG TAB PO SCH (21:49)
[2023-05-25 06:44] LABS: Calcium 8.2 mg/dl (8.6-10.3); Creatinine Clr Calc Pharmacy 139.5 ml/min; Est GFR (African American) 135.9 ml/min; Est GFR (Non-African American) 117.2 ml/min; Magnesium 1.9 mg/dl (1.7-2.4)
[2023-05-25 06:48] LABS: Basophils # (auto) 0.03 K/uL (0.00-0.20); Basophils % (auto) 0.7 %; Eosinophils # (auto) 0.14 K/uL (0.00-0.50); Eosinophils % (auto) 3.1 %; Hematocrit (blood only) 34.8 % (42.0-52.0); Hemoglobin 12.1 g/dl (14.0-18.0); Immature Granulocytes # (auto) 0.01 K/uL (0.01-0.20); Immature Granulocytes % (auto) 0.2 %; Lymphocytes # (auto) 1.31 K/uL (1.20-3.40); Lymphocytes % (auto) 28.9 %; Mean Corpuscular Hgb Conc 34.8 g/dL (32.0-36.0); Mean Corpuscular Volume 94.8 fL (80.0-100.0); Mean Platelet Volume 9.5 fL (9.4-12.4); Monocytes % (auto) 8.8 %; Neutrophils # (auto) 2.65 K/uL (1.40-6.50); Neutrophils % (auto) 58.3 %; Platelet Count 267 K/uL (130-400); RDW Coefficient of Variation 12.6 % (11.5-14.5); RDW Standard Deviation 43.7 fL (36.4-46.3); Red Blood Count 3.67 M/uL (4.70-6.10); White Blood Count 4.54 K/ul (4.8-10.8)
[2023-05-25] MEDS: VALPROIC ACID SOLN 250 MG/5 ML UDC PO SCH (08:57)
[2023-05-25] MEDS: BACITRACIN OINT 14 GM TUBE EXT SCH (16:29)
[2023-05-25] MEDS: ADVANCED PROBIOTIC 1250 MG CAPSULE PO SCH (16:29)
--- NOTE | 2023-05-25 17:04 | Hospitalist Progress Note ---
Date of Service May 25, 2023 Assessment & Plan (1) Seizure: Plan: per previous hospitalist notes with addendum: 32-year-old male with past medically significant for seizures, depression comes from detention because of seizures. Patient was in the ER earlier with intentional drug overdose. Seems he took 30 tablets of Tylenol, 6 tablets of Motrin and the pack of Bactrim and sleeve fiber medication yesterday evening was trying to kill himself. Seems patient is on Bactrim for finger infection. Patient was observed in the ER. After 4 hours post Tylenol ingestion level was 110 which is below toxic level and was discharged back to detention. In detention patient had a seizure episode in the bathroom and strike his head on the toilet and was brought in here. Initially he was alert and awake as per ER but again he had another episode of seizure in the ER. He was given IV Keppra and IV Ativan in the ER. Currently patient is somewhat drowsy but arousable. Can tell his name. Knows he is in the hospital. Knows the year. But thinks its January. States has some headache. Denies any runny nose or sore throat. Denies cough. Denies any chest pain or shortness of breath. Denies nausea. Denies abdominal pain. Able to move his extremities on command. Seizures History of seizures Had one episode in the detention And another episode in the ER when he was treated as status epilepticus loaded with high-dose IV Keppra and IV Ativan Currently somewhat drowsy but arousable and seems comfortable Will continue with IV Keppra 1500 mg twice daily and IV Depakote 50 mg twice daily home dose Follow-up Keppra levels and Depakote levels IV Ativan as needed for breakthrough seizures EEG Seizure precautions Neurology consult Telemetry 05/25 No recurrence of seizures while admitted Patient received loading dose of IV Depakote Depakote increased to 500 mg p.o. at bedtime Repeat Depakote level in 1 week Above recommendations per neurology service Continue IV Keppra Psychiatric illness Continue home medications Psychiatry service on board No medication changes, recommend to continue follow-up with psychiatry service at the correctional facility Intentional drug overdose With Tylenol, ibuprofen, Bactrim and fiber medication Suicidal attempt Will follow repeat Tylenol levels and LFTs and PT/INR Suicide precautions One-on-one Psych consult: Per above LFTs, INR okay Left fifth digit, small open wound at the distal aspect, infected wound/cell ulitis No visible signs of possible abscess or fluid collection that needs to be drained at this point Add doxycycline for MRSA coverage Continue cephalexin Wound care consulted DVT prophylaxis SCDs for now Disposition telemetry Full code Admission and Anticipated Discharge Date Admission Date: May 24, 2023 Subjective Follow-up for breakthrough seizure, etc. Seen with correctional officers at the bedside on all exam Patient resting in bed, watching TV, comfortable States he feels fine overall No recurrence of seizures Denies headache, dizziness, nausea or vomiting No focal neurologic symptoms Still having some pain over the distal aspect of the fifth digit, left But improving since yesterday No fevers or chills States mood is okay, denies depression/SI No other new symptom Review of Systems Review of Systems: all noted and negative except for above Physical Exam Physical Exam: General- oriented x 3, not in distress, speaks in sentences with no effort or accessory muscle use Eyes- anicteric Neck- no JVD Lungs- clear breath sounds bilaterally, no rales/wheezes Heart- normal rate, regular rhythm; no murmurs Abdomen- normal bowel sounds, nondistended, soft, nontender Extremities- no pretibial edema, no calf tenderness Left fifth digit: Small open wound at the distal phalanx, no active bleeding or discharge Mild erythema at the distal phalanx region, with very minimal edema, no signs of fluctuance Neuro- alert, oriented x 3; no gross focal neurologic deficits Skin- warm & dry Results & Data Results & Data Vital Signs (Past 12 Hours) Vital Signs Temp Pulse Resp BP Pulse Ox O2 Del Method 05/25/23 15:02 36.8 C 76 15 102/65 99 Room Air 05/25/23 11:10 36.4 C L 79 15 114/77 100 Room Air 05/25/23 07:51 36.6 C 77 14 107/77 100 Room Air
[2023-05-25] MEDS: DOXYCYCLINE HYCLATE 100 MG CAP PO SCH (19:59)
[2023-05-25] MEDS: VALPROIC ACID SOLN 500 MG/10 ML UDC PO SCH (19:59)
--- NOTE | 2023-05-25 23:49 | Electroencephalogram ---
EEG Procedure Note Date of Service May 25, 2023 Start / End Times Start Time: 07:21 End Time: 07:41 Referring Physician Ez Saravia History A 32 year old male with breakthrough seizure. EEG performed for evaluation of epileptiform activity. Home Medication List Medication Instructions Recorded Confirmed Type acetaminophen 325 mg tablet 325 mg PO TID PRN Pain 05/24/23 05/24/23 History (Tylenol) calcium polycarbophil 625 mg 1,250 mg PO DAILY 05/24/23 05/24/23 History tablet (FiberCon) divalproex 250 mg tablet,delayed 250 mg PO BID 05/24/23 05/24/23 History release (Depakote) guanfacine 1 mg tablet 1 mg PO HS 05/24/23 05/24/23 History ibuprofen 600 mg tablet 600 mg PO TID PRN Pain 05/24/23 05/24/23 History levetiracetam 500 mg tablet 1,500 mg PO BID 05/24/23 05/24/23 History (Keppra) mirtazapine 15 mg tablet (Remeron) 15 mg PO HS 05/24/23 05/24/23 History paroxetine HCl 40 mg tablet (Paxil) 40 mg PO HS 05/24/23 05/24/23 History sulfamethoxazole 800 1 tab PO BID 05/24/23 05/24/23 History mg-trimethoprim 160 mg tablet (Bactrim DS) Inpatient Medication List Bacitracin (Bacitracin Oint 14 Gm Tube) 1 appln EXT BID [facility] Stop: 06/24/23 15:59 Last Admin: 05/25/23 16:29 Dose: 1 appln Documented By: BERNARDINO Cephalexin HCl (Cephalexin 500 Mg Cap) 500 mg PO QID [facility]; Protocol Stop: 05/31/23 20:59 Last Admin: 05/25/23 19:59 Dose: 500 mg Documented By: Admin: 05/25/23 16:30 Dose: 500 mg Documented By: Admin: 05/25/23 13:48 Dose: 500 mg Documented By: Admin: 05/25/23 08:57 Dose: 500 mg Documented By: Admin: 05/24/23 21:49 Dose: 500 mg Documented By: LSG Doxycycline Hyclate (Doxycycline Hyclate 100 Mg Cap) 100 mg PO BID [facility] Stop: 06/01/23 20:59 Last Admin: 05/25/23 19:59 Dose: 100 mg Documented By: JASWINDER Guanfacine HCl (Guanfacine Hcl 1 Mg Tab) 1 mg PO HS [facility] Stop: 06/23/23 20:59 Last Admin: 05/25/23 19:59 Dose: 1 mg Documented By: Admin: 05/24/23 21:49 Dose: 1 mg Documented By: DAWNG Levetiracetam 1,500 mg/ Sodium (Chloride) 115 mls @ 460 mls/hr IV Q12H [facility] Stop: 06/23/23 10:29 Last Infusion: 05/25/23 22:55 Dose: Infused Documented By: Admin: 05/25/23 22:18 Dose: 460 mls/hr Documented By: Infusion: 05/25/23 11:15 Dose: Infused Documented By: Admin: 05/25/23 10:15 Dose: 460 mls/hr Documented By: Infusion: 05/24/23 22:09 Dose: Infused Documented By: Admin: 05/24/23 21:54 Dose: 460 mls/hr Documented By: Infusion: 05/24/23 10:43 Dose: Infused Documented By: Admin: 05/24/23 10:28 Dose: 460 mls/hr Documented By: REE Lactobacillus Acidophilus (Advanced Probiotic 1250 Mg Capsule) 2 cap PO DAILY [facility] Stop: 06/24/23 15:59 Last Admin: 05/25/23 16:29 Dose: 2 cap Documented By: BERNARDINO Mirtazapine (Mirtazapine Tab 15 Mg Tab) 15 mg PO HS [facility] Stop: 06/23/23 20:59 Last Admin: 05/25/23 19:59 Dose: 15 mg Documented By: Admin: 05/24/23 21:48 Dose: 15 mg Documented By: ISAÍAS Paroxetine HCl (Paroxetine Hcl 20 Mg Tab) 40 mg PO DAILY [facility] Stop: 06/23/23 10:29 Last Admin: 05/25/23 08:58 Dose: 40 mg Documented By: Admin: 05/24/23 10:28 Dose: 40 mg Documented By: FILIBERTOT Valproic Acid (Valproic Acid Soln 250 Mg/5 Ml Udc) 250 mg PO QAM [facility] Stop: 06/24/23 08:59 Last Admin: 05/25/23 08:57 Dose: 250 mg Documented By: BryceO Valproic Acid (Valproic Acid Soln 500 Mg/10 Ml Udc) 500 mg PO QPM [facility] Stop: 06/24/23 20:59 Last Admin: 05/25/23 19:59 Dose: 500 mg Documented By: CM Discontinued Medications Sodium Chloride (Nss) 1,000 mls @ 999 mls/hr IV .Q1H1M ONE Stop: 05/24/23 05:26 Last Infusion: 05/24/23 06:07 Dose: Infused Documented By: Admin: 05/24/23 04:33 Dose: 999 mls/hr Documented By: KAREN Sodium Chloride (Nss) 1,000 mls @ 125 mls/hr IV .Q8H [facility] Stop: 05/25/23 02:02 Last Infusion: 05/25/23 03:58 Dose: Infused Documented By: Admin: 05/24/23 19:58 Dose: 125 mls/hr Documented By: Infusion: 05/24/23 10:44 Dose: Infused Documented By: Admin: 05/24/23 10:29 Dose: 125 mls/hr Documented By: REE Valproic Acid 250 mg/ Dextrose 52.5 mls @ 55 mls/hr IV BID [facility] Stop: 06/23/23 10:29 Last Infusion: 05/24/23 12:34 Dose: Infused Documented By: Admin: 05/24/23 10:51 Dose: 55 mls/hr Documented By: REE Valproic Acid 1,000 mg/ (Dextrose) 110 mls @ 110 mls/hr IV NOW STA Stop: 05/24/23 16:51 Last Infusion: 05/24/23 20:50 Dose: Infused Documented By: Admin: 05/24/23 17:36 Dose: 110 mls/hr Documented By: JODEE Levetiracetam (Levetiracetam 500 Mg/5 Ml Vial) 3,550 mg 40 mg/kg (3550 mg) IV NOW STA Stop: 05/24/23 05:29 Last Admin: 05/24/23 05:44 Dose: 3,550 mg Documented By: KAREN Lorazepam (Lorazepam 1 Mg/1 Ml Syr Ed Inj Use) Confirm Administered Dose 1 mg .ROUTE .STK-MED ONE Stop: 05/24/23 05:11 Last Admin: 05/24/23 05:21 Dose: Not Given Documented By: KAREN Lorazepam (Lorazepam 1 Mg/1 Ml Syr Ed Inj Use) Confirm Administered Dose 1 mg .ROUTE .STK-MED ONE Stop: 05/24/23 05:14 Last Admin: 05/24/23 05:21 Dose: Not Given Documented By: KAREN Lorazepam (Lorazepam 1 Mg/1 Ml Syr Ed Inj Use) 2 mg IV ONE STA Stop: 05/24/23 05:18 Last Admin: 05/24/23 05:18 Dose: 2 mg Documented By: KAREN Description This is a 21 electrode EEG with a single channel dedicated to limited EKG. The electrodes were placed in accordance with the International 10-20 system. REPORT: At the onset the EEG the patient is awake. The background is symmetric and well organized. There is a normal anterior to posterior gradient. The posterior dominant rhythm is 9 Hz. Frontally there is low amplitude faster frequencies. Drowsiness is characterized by increased theta, reduced blink rate, and decreased myogenic artifact. Photic stimulation does not induce any abnormalities. Interpretation IMPRESSION: This is a normal awake and drowsy routine EEG. There is no evidence of focal slowing or epileptiform activity,
--- NOTE | 2023-05-26 14:31 | Hospitalist Progress Note ---
Date of Service May 26, 2023 Assessment & Plan (1) Seizure: Plan: per previous hospitalist notes with addendum: 32-year-old male with past medically significant for seizures, depression comes from senior living because of seizures. Patient was in the ER earlier with intentional drug overdose. Seems he took 30 tablets of Tylenol, 6 tablets of Motrin and the pack of Bactrim and sleeve fiber medication yesterday evening was trying to kill himself. Seems patient is on Bactrim for finger infection. Patient was observed in the ER. After 4 hours post Tylenol ingestion level was 110 which is below toxic level and was discharged back to senior living. In senior living patient had a seizure episode in the bathroom and strike his head on the toilet and was brought in here. Initially he was alert and awake as per ER but again he had another episode of seizure in the ER. He was given IV Keppra and IV Ativan in the ER. Currently patient is somewhat drowsy but arousable. Can tell his name. Knows he is in the hospital. Knows the year. But thinks its January. States has some headache. Denies any runny nose or sore throat. Denies cough. Denies any chest pain or shortness of breath. Denies nausea. Denies abdominal pain. Able to move his extremities on command. Breakthrough seizure History of seizures Had one episode in the senior living And another episode in the ER when he was treated as status epilepticus loaded with high-dose IV Keppra and IV Ativan Currently somewhat drowsy but arousable and seems comfortable Will continue with IV Keppra 1500 mg twice daily and IV Depakote 50 mg twice daily home dose Follow-up Keppra levels and Depakote levels IV Ativan as needed for breakthrough seizures EEG Seizure precautions Neurology consult Telemetry 05/25 No recurrence of seizures while admitted Depakote level found to be low : 17 Patient received loading dose of IV Depakote Depakote increased to 500 mg p.o. at bedtime Repeat Depakote level in 1 week Above recommendations per neurology service Continue IV Keppra 05/26 No recurrence of seizures Discharge plan: Increase p.m. dose of Depakote to 500 mg p.o. Continue a.m. dose of Depakote 250 mg p.o. Repeat Depakote level in 1 week Left fifth digit, small open wound at the distal aspect, infected wound/cellulitis No visible signs of possible abscess or fluid collection that needs to be drained at this point Add doxycycline for MRSA coverage Continue cephalexin Wound care consulted 05/26 Wound healing well Continue doxycycline 100 mg p.o. twice daily x 6 more days to complete 7-day course Continue cephalexin 5 mg p.o. 4 times daily x 5 more days to complete 7-day course Probiotics daily Psychiatric illness Continue home medications Psychiatry service on board No medication changes, recommend to continue follow-up with psychiatry service at the correctional facility Intentional drug overdose With Tylenol, ibuprofen, Bactrim and fiber medication Suicidal attempt Suicide precautions One-on-one Psych consult: Per above LFTs, INR okay Disposition Return to correctional facility Full code Admission and Anticipated Discharge Date Admission Date: May 24, 2023 Subjective Follow-up for breakthrough seizure, etc. Seen resting in bed, sitting up and watching TV, comfortable, not in distress Pleasant, calm and cooperative States he feels fine overall No recurrence of seizures No headache, dizziness, no neurologic deficits Left fifth digit-pain improving, no fevers or chills No other new symptoms States he is ready for discharge today Review of Systems Review of Systems: all noted and negative except for above Physical Exam Physical Exam: General- oriented x 3, not in distress, speaks in sentences with no effort or accessory muscle use Eyes- anicteric Neck- no JVD Lungs- clear breath sounds bilaterally, no rales/wheezes Heart- normal rate, regular rhythm; no murmurs Abdomen- normal bowel sounds, nondistended, soft, nontender Extremities- no pretibial edema, no calf tenderness Left fifth digit, distal phalanx: Wound at the tip of the finger healing well, no bleeding or discharge Surrounding edema resolved, mild to moderate erythema, mild tenderness Neuro- alert, oriented x 3; no gross focal neurologic deficits Skin- warm & dry Results & Data Results & Data Vital Signs (Past 12 Hours) Vital Signs Temp Pulse Pulse Resp BP Pulse Ox O2 Del Method 05/26/23 13:10 36.8 C 76 18 111/67 95 Room Air 05/26/23 08:08 65 05/26/23 08:04 36.5 C 87 16 123/77 98 Room Air 05/26/23 02:58 36.6 C 77 18 114/69 93 Room Air all noted and reviewed including below
--- NOTE | 2023-05-26 14:39 | Discharge Summary ---
Discharge Summary Date of Service May 26, 2023 Notes For Next Care Provider Medication Changes From Visit Increase evening dose of Depakote from 250 mg to 500 mg p.o. Continue usual morning dose of Depakote 250 mg p.o. Cephalexin x 5 more days Doxycycline x 6 more days Admission HPI Per Admitting Provider 32-year-old male with past medical history significant for seizures, depression comes from [facility] because of seizures. Patient was in the ER earlier with intentional drug overdose. Seems he took 30 tablets of Tylenol, 6 tablets of Motrin and the pack of Bactrim and sleeve fiber medication yesterday evening as was trying to kill himself. Seems patient is on Bactrim for finger infection. Patient was observed in the ER. After 4 hours post Tylenol ingestion level was 110 which is below toxic level and was [facility] to [facility]. In [facility] patient had a seizure episode in the bathroom and strike his head on the toilet and was brought in here. Initially he was alert and awake as per ER but again he had another episode of seizure in the ER. He was given IV Keppra and IV Ativan in the ER. Currently patient is somewhat drowsy but arousable. Can tell his name. Knows he is in the hospital. Knows the year. But thinks its January. States has some headache. Denies any runny nose or sore throat. Denies cough. Denies any chest pain or shortness of breath. Denies nausea. Denies abdominal pain. Able to move his extremities on command. Past medical history. As mentioned above Past surgical history. Patient denies any surgeries. Social history. Patient denies smoking alcohol or drugs. Family history. Patient states as far as he knows no family history Admission Exam Per Admitting Provider General- rowsy but arousable Head- bruise seen on the face Eyes- PERRL. ENT- blood on tounge seen. Neck- supple, no JVD. Lungs- clear to auscultation no wheezing or crackles. Heart- regular rhythm; no murmur, no gallop. Abdomen- normal bowel sounds, soft, nontender, no distension Extremities- no pretibial edema, no erythema seen. Neuro- alert, oriented x 2; PERRL, no facial palsy; no dysarthria; moves extremities. Principal Dx & Hospital Course #1 = Principal Diagnosis (1) Seizure: per previous hospitalist notes with addendum: 32-year-old male with past medically significant for seizures, depression comes from [facility] because of seizures. Patient was in the ER earlier with intentional drug overdose. Seems he took 30 tablets of Tylenol, 6 tablets of Motrin and the pack of Bactrim and sleeve fiber medication yesterday evening was trying to kill himself. Seems patient is on Bactrim for finger infection. Patient was observed in the ER. After 4 hours post Tylenol ingestion level was 110 which is below toxic level and was [facility] to [facility]. In [facility] patient had a seizure episode in the bathroom and strike his head on the toilet and was brought in here. Initially he was alert and awake as per ER but again he had another episode of seizure in the ER. He was given IV Keppra and IV Ativan in the ER. Currently patient is somewhat drowsy but arousable. Can tell his name. Knows he is in the hospital. Knows the year. But thinks its January. States has some headache. Denies any runny nose or sore throat. Denies cough. Denies any chest pain or shortness of breath. Denies nausea. Denies abdominal pain. Able to move his extremities on command. Breakthrough seizure History of seizures Had one episode in the [facility] And another episode in the ER when he was treated as status epilepticus loaded with high-dose IV Keppra and IV Ativan Currently somewhat drowsy but arousable and seems comfortable Will continue with IV Keppra 1500 mg twice daily and IV Depakote 50 mg twice daily home dose Follow-up Keppra levels and Depakote levels IV Ativan as needed for breakthrough seizures EEG Seizure precautions Neurology consult Telemetry 05/25 No recurrence of seizures while admitted Depakote level found to be low : 17 Patient received loading dose of IV Depakote Depakote increased to 500 mg p.o. at bedtime Repeat Depakote level in 1 week Above recommendations per neurology service Continue IV Keppra 05/26 No recurrence of seizures Discharge plan: Increase p.m. dose of Depakote to 500 mg p.o. Continue a.m. dose of Depakote 250 mg p.o. Repeat Depakote level in 1 week Left fifth digit, small open wound at the distal aspect, infected wound/cellulitis No visible signs of possible abscess or fluid collection that needs to be drained at this point Add doxycycline for MRSA coverage Continue cephalexin Wound care consulted 05/26 Wound healing well Continue doxycycline 100 mg p.o. twice daily x 6 more days to complete 7-day course Continue cephalexin 5 mg p.o. 4 times daily x 5 more days to complete 7-day course Probiotics daily Psychiatric illness Continue home medications Psychiatry service on board No medication changes, recommend to continue follow-up with psychiatry service at the correctional facility Intentional drug overdose With Tylenol, ibuprofen, Bactrim and fiber medication Suicidal attempt Suicide precautions One-on-one Psych consult: Per above LFTs, INR okay Disposition Return to correctional facility Full code Discharge Exam General- oriented x 3, not in distress, speaks in sentences with no effort or accessory muscle use Eyes- anicteric Neck- no JVD Lungs- clear breath sounds bilaterally, no rales/wheezes Heart- normal rate, regular rhythm; no murmurs Abdomen- normal bowel sounds, nondistended, soft, nontender Extremities- no pretibial edema, no calf tenderness Left fifth digit, distal phalanx: Wound at the tip of the finger healing well, no bleeding or discharge Surrounding edema resolved, mild to moderate erythema, mild tenderness Neuro- alert, oriented x 3; no gross focal neurologic deficits Skin- warm & dry Updated Medication List Medication Instructions Recorded Confirmed Type acetaminophen 325 mg tablet 325 mg PO TID PRN Pain 05/24/23 05/24/23 History (Tylenol) calcium polycarbophil 625 mg 1,250 mg PO DAILY 05/24/23 05/24/23 History tablet (FiberCon) divalproex 250 mg tablet,delayed 250 mg PO BID 05/24/23 05/24/23 History release (Depakote) guanfacine 1 mg tablet 1 mg PO HS 05/24/23 05/24/23 History ibuprofen 600 mg tablet 600 mg PO TID PRN Pain 05/24/23 05/24/23 History levetiracetam 500 mg tablet 1,500 mg PO BID 05/24/23 05/24/23 History (Keppra) mirtazapine 15 mg tablet (Remeron) 15 mg PO HS 05/24/23 05/24/23 History paroxetine HCl 40 mg tablet (Paxil) 40 mg PO HS 05/24/23 05/24/23 History sulfamethoxazole 800 1 tab PO BID 05/24/23 05/24/23 History mg-trimethoprim 160 mg tablet (Bactrim DS) L.acidop,casei,lactis,rham-B.lact,reynaldo 2 cap PO DAILY 21 days #42 caps 05/26/23 Rx 625 mg (10 billion cell) capsule (Advanced Probiotic) bacitracin 500 unit/gram topical 1 applic EXT BID 7 days #30 grams 05/26/23 Rx ointment cephalexin 500 mg capsule 500 mg PO QID 5 days #20 caps 05/26/23 Rx doxycycline hyclate 100 mg capsule 100 mg PO BID 6 days #12 caps 05/26/23 Rx Hospital Stay Data Consultations 05/24/23 06:30 ED Decision to Admit Stat 05/24/23 10:03 Consult Neurology Routine Consult Psychiatry Routine Diagnostic Imagining Performed Laboratory Results WBC 4.54 K/ul (4.8-10.8) L D 05/25/23 05:27 RBC 3.67 M/uL (4.70-6.10) L 05/25/23 05:27 Hgb 12.1 g/dl (14.0-18.0) L 05/25/23 05:27 Hct 34.8 % (42.0-52.0) L 05/25/23 05:27 MCV 94.8 fL (80.0-100.0) 05/25/23 05:27 MCH 33.0 pg (25.0-34.0) 05/25/23 05:27 MCHC 34.8 g/dL (32.0-36.0) 05/25/23 05:27 RDW Std Deviation 43.7 fL (36.4-46.3) 05/25/23 05:27 RDW Coeff of James 12.6 % (11.5-14.5) 05/25/23 05:27 Plt Count 267 K/uL (130-400) 05/25/23 05:27 MPV 9.5 fL (9.4-12.4) 05/25/23 05:27 Immature Gran % (Auto) 0.2 % 05/25/23 05:27 Neut % (Auto) 58.3 % 05/25/23 05:27 Lymph % (Auto) 28.9 % 05/25/23 05:27 [place] % (Auto) 8.8 % 05/25/23 05:27 Eos % (Auto) 3.1 % 05/25/23 05:27 Baso % (Auto) 0.7 % 05/25/23 05:27 Neut # (Auto) 2.65 K/uL (1.40-6.50) 05/25/23 05:27 Lymph # (Auto) 1.31 K/uL (1.20-3.40) 05/25/23 05:27 [place] # (Auto) 0.40 K/uL (0.11-0.59) 05/25/23 05:27 Eos # (Auto) 0.14 K/uL (0.00-0.50) 05/25/23 05:27 Baso # (Auto) 0.03 K/uL (0.00-0.20) 05/25/23 05:27 Immature Gran # (Auto) 0.01 K/uL (0.01-0.20) 05/25/23 05:27 PT 11.6 Seconds (9.0-12.0) 05/24/23 08:07 INR 1.1 (0.9-1.1) 05/24/23 08:07 Sodium 138 mmol/L (136-145) 05/25/23 05:27 Potassium 4.0 mmol/L (3.5-5.1) 05/25/23 05:27 Chloride 112 mmol/L (98-107) H 05/25/23 05:27 Carbon Dioxide 21 mmol/L (21-32) 05/25/23 05:27 Anion Gap 5 (3-11) 05/25/23 05:27 BUN 10 mg/dl (6-23) 05/25/23 05:27 Creatinine 0.83 mg/dl (0.6-1.4) 05/25/23 05:27 Est Cr Clr Drug Dosing 139.5 ml/min 05/25/23 05:27 Est GFR ( Amer) 135.9 ml/min 05/25/23 05:27 Est GFR (Non-Af Amer) 117.2 ml/min 05/25/23 05:27 BUN/Creatinine Ratio 12.0 (10-20) 05/25/23 05:27 Glucose 96 mg/dl (70-99(Fasting)) 05/25/23 05:27 Calcium 8.2 mg/dl (8.6-10.3) L 05/25/23 05:27 Magnesium 1.9 mg/dl (1.7-2.4) 05/25/23 05:27 Total Bilirubin 0.3 mg/dl (0.2-1.0) 05/24/23 08:07 Direct Bilirubin 0.1 mg/dl (0-0.2) 05/24/23 08:07 AST 22 U/L (13-39) 05/24/23 08:07 ALT 23 U/L (7-52) 05/24/23 08:07 Alkaline Phosphatase 58 U/L (34-104) 05/24/23 08:07 Total Protein 6.2 gm/dl (6.0-8.3) 05/24/23 08:07 Albumin 4.3 gm/dl (3.4-5.0) 05/24/23 08:07 Globulin 1.9 gm/dl (2.5-4.0) L 05/24/23 08:07 Albumin/Globulin Ratio 2.3 (0.9-2) H 05/24/23 08:07 Nasal Screen MRSA (PCR) Negative (Negative) 05/25/23 22:01 Acetaminophen 43 ug/ml (10-30) H 05/24/23 08:07 Valproic Acid 17 mcg/ml (50-100) L 05/24/23 06:[address] 05/24/23 04:26 Exam(s): CT C SPINE EXAM: CT Cervical Spine Without Intravenous Contrast CLINICAL HISTORY: Reason for exam: fall. TECHNIQUE: Axial computed tomography images of the cervical spine without intravenous contrast. Automated exposure control was utilized for the study. A dose lowering technique was utilized adhering to the principles of ALARA. COMPARISON: No relevant prior studies available. FINDINGS: Vertebrae: Unremarkable. No acute fracture. Discs/spinal canal/neural foramina: No acute findings. No spinal canal stenosis. Soft tissues: Prominent cervical lymph nodes. IMPRESSION: No evidence of acute cervical spine pathology. Electronically signed by: Yulisa Ortiz MD 05/24/23 06:[address] 05/24/23 04:26 Exam(s): CT HEAD Without Contrast EXAM: CT Head Without Intravenous Contrast CLINICAL HISTORY: Reason for exam: fall. TECHNIQUE: Axial computed tomography images of the head/brain without intravenous contrast. Automated exposure control was utilized for the study. A dose lowering technique was utilized adhering to the principles of ALARA. COMPARISON: Comparison made to prior head CT from February 13, 2023. FINDINGS: Brain: Unremarkable. No hemorrhage. No significant white matter disease. No edema. Ventricles: Unremarkable. No ventriculomegaly. 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 No acute fracture. Soft tissues: Mild soft tissue swelling over the right forehead. Sinuses: Unremarkable as visualized. No acute sinusitis. Mastoid air cells: Unremarkable as visualized. No mastoid effusion. IMPRESSION: No evidence of acute intracranial pathology. Electronically signed by: Yulisa Ortiz MD 05/24/23 06:04 AM 05/24/23 04:26 CT Brain [CT head/brain wo con] Stat CT cervical spine wo con Stat Pending Results Patient Have Any Pending Studies at Discharge: No Discharge Instructions Given to Patient (Per Discharging Provider) PLEASE REFER TO YOUR NEW MEDICATION LIST AND FOLLOW INSTRUCTIONS CAREFULLY. YOUR NEW MEDICATIONS INCLUDE: Increase evening dose of Depakote from 250 mg to 500 mg Cephalexin, doxycycline-for infected distal phalanx, fifth digit, left hand PLEASE CALL YOUR PRIMARY CARE PHYSICIAN OR RETURN TO THE ER IF WITH WORSENING OF SYMPTOMS, INCLUDING Breakthrough seizures, Fevers or chills, worsening erythema/pain/redness, discharge of the distal phalanx fifth digit FOLLOW UP WITH PRIMARY CARE PHYSICIAN AT THE CORRECTIONAL FACILITY. Total Time Total Time Spent Total Time Spent (In Minutes): >30 minutes
== END 2023-05-26 16:00 | DRG 101 ==
LOC: ED 04:02 → SUATTDRO 07:02 → EDINP 07:02 → 2S 20:22

== ENCOUNTER 2023-07-08 21:18 | Observation (INO) ==
[2023-07-08] MEDS: DIVALPROEX EXTENDED RELEASE 500 MG TAB PO ONE (22:03)
[2023-07-08] MEDS: levETIRAcetam 500 MG TAB PO ONE (22:03)
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
[2023-07-08 22:29] LABS: Hematocrit (blood only) 39.4 % (42.0-52.0); Hemoglobin 13.9 g/dl (14.0-18.0); Mean Corpuscular Hemoglobin 33.5 pg (25.0-34.0); Mean Corpuscular Hgb Conc 35.3 g/dL (32.0-36.0); Mean Corpuscular Volume 94.9 fL (80.0-100.0); RDW Standard Deviation 41.7 fL (36.4-46.3); Red Blood Count 4.15 M/uL (4.70-6.10); White Blood Count 6.16 K/ul (4.8-10.8)
[2023-07-08 22:30] LABS: Basophils # (auto) 0.04 K/uL (0.00-0.20); Basophils % (auto) 0.6 %; Eosinophils # (auto) 0.03 K/uL (0.00-0.50); Eosinophils % (auto) 0.5 %; Immature Granulocytes # (auto) 0.01 K/uL (0.01-0.20); Immature Granulocytes % (auto) 0.2 %; Lymphocytes # (auto) 1.64 K/uL (1.20-3.40); Lymphocytes % (auto) 26.6 %; Mean Platelet Volume 9.1 fL (9.4-12.4); Monocytes # (auto) 0.44 K/uL (0.11-0.59); Monocytes % (auto) 7.1 %; Platelet Count 320 K/uL (130-400)
[2023-07-08 22:47] LABS: Albumin Level 4.7 gm/dl (3.4-5.0); BUN Creatinine Ratio 14.1 (10-20); Bilirubin Direct 0.2 mg/dl (0-0.2); Bilirubin,Total 0.6 mg/dl (0.2-1.0); Calcium 9.7 mg/dl (8.6-10.3); Creatinine Clr Calc Pharmacy 140.9 ml/min; Est GFR (African American) 144.9 ml/min; Potassium 4.5 mmol/L (3.5-5.1); Total Protein 6.9 gm/dl (6.0-8.3)
[2023-07-08 22:56] LABS: INR 1.1 (0.9-1.1); Partial Thromboplastin Ratio 0.9; Partial Thromboplastin Time 26 Seconds (21-31); Prothrombin Time 11.9 Seconds (9.0-12.0)
--- NOTE | 2023-07-09 00:44 | CT Scan Report ---
CT head/brain wo con CLINICAL HISTORY: 32 years-old Male with head trauma. Acute head trauma TECHNIQUE: Multiple axial CT images of the head were obtained without contrast. A dose lowering tech nique was utilized adhering to the principles of ALARA. COMPARISON: CT cervical maxillofacial studies of same day FINDINGS: No acute intracranial hemorrhage, midline shift, intracranial mass, hydrocephalus, territorial ischem ia or abnormal extra-axial collection. The calvarium is intact. Fibrous dysplasia of the left frontal bone and orbital roof are demonstrated . Calcifications of the anterior falx cerebri. The paranasal sinuses, mastoid air cells, and middle e ar cavities are clear. IMPRESSION: 1. No acute intracranial abnormality calvarial fracture. 2. Calvarial fibrous dysplasia redemonstrated. ACT 112: Negative or not required by law. The above report was generated using voice recognition software. It may contain grammatical, syntax o r spelling errors. Electronically signed by: Ganesh Hickman M.D. 07/09/2023 12:43 AM
--- NOTE | 2023-07-09 00:48 | CT Scan Report ---
CT cervical spine wo con CLINICAL HISTORY: 32 years-old Male with trauma. Acute neck injury COMPARISON: None. TECHNIQUE: Multiple axial CT images of the cervical spine were obtained without contrast. A dose low ering technique was utilized adhering to the principles of ALARA. FINDINGS: No acute cervical spine fracture or subluxation. The intervertebral disc spaces are general ly well maintained. Mild multilevel vertebral hypertrophy with small posterior annular disc bulging. No acute cervical spine fracture or subluxation. The cervical soft tissues appear unremarkable. The visualized lung apices appear clear. IMPRESSION: No acute cervical spine fracture or subluxation. ACT 112: Negative or not required by law. The above report was generated using voice recognition software. It may contain grammatical, syntax o r spelling errors. Electronically signed by: Ganesh Hickman M.D. 07/09/2023 12:46 AM
--- NOTE | 2023-07-09 00:53 | CT Scan Report ---
CT facial bones wo con CLINICAL HISTORY: 32 years-old Male presenting with facial trauma. Acute facial trauma COMPARISON STUDY: CT head and cervical spine studies of same day TECHNIQUE: High-resolution CT scan of the facial bones is performed. Images are reviewed in the axia l, sagittal, and coronal planes. IV contrast was not administered for this examination. A dose lower ing technique was utilized adhering to the principles of ALARA. CT DOSE: 1433.81 mGy.cm FINDINGS: There is no evidence of facial bone fracture. The bony orbits are intact and the orbital contents are within normal limits. The zygomatic arches, nasal bones, and pterygoid plates are preserved. The max illa and mandible are intact. 2.5 cm focus of right maxillary sinus polypoid mucosal thickening. Left frontal bone/orbital roof fib rocco dysplasia redemonstrated. The imaged calvarium and upper cervical spine are within normal limits . Partially imaged brain parenchyma is within normal limits. IMPRESSION: 1. No acute facial bone fracture. 2. Polypoid mucosal thickening of the right maxillary sinus. 3. Calvarial fibrous dysplasia redemonstrated. ACT 112: Negative or not required by law. The above report was generated using voice recognition software. It may contain grammatical, syntax o r spelling errors. Electronically signed by: Ganesh Hickman M.D. 07/09/2023 12:51 AM
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
[2023-07-09] MEDS ORDERED: PROMETHAZINE HCL 6.25 MG in SODIUM CHLORIDE 0.9% 50 ML IV PRN (01:34)
[2023-07-09] MEDS: LACTATED RINGER'S 1,000 ML IV STA (01:55)
[2023-07-09] MEDS: ACETAMINOPHEN 1,000 MG/100 ML VIAL IV STA (01:55)
[2023-07-09 04:51] LABS: Basophils # (auto) 0.05 K/uL (0.00-0.20); Basophils % (auto) 0.9 %; Eosinophils # (auto) 0.12 K/uL (0.00-0.50); Eosinophils % (auto) 2.2 %; Hematocrit (blood only) 36.8 % (42.0-52.0); Hemoglobin 13.5 g/dl (14.0-18.0); Immature Granulocytes # (auto) 0.01 K/uL (0.01-0.20); Immature Granulocytes % (auto) 0.2 %; Lymphocytes # (auto) 2.74 K/uL (1.20-3.40); Lymphocytes % (auto) 49.7 %; Mean Corpuscular Hemoglobin 34.1 pg (25.0-34.0); Mean Corpuscular Hgb Conc 36.7 g/dL (32.0-36.0); Mean Corpuscular Volume 92.9 fL (80.0-100.0); Mean Platelet Volume 9.4 fL (9.4-12.4); Monocytes # (auto) 0.48 K/uL (0.11-0.59); Monocytes % (auto) 8.7 %; Neutrophils # (auto) 2.11 K/uL (1.40-6.50); Neutrophils % (auto) 38.3 %; Platelet Count 313 K/uL (130-400); RDW Coefficient of Variation 11.9 % (11.5-14.5); RDW Standard Deviation 41.1 fL (36.4-46.3); Red Blood Count 3.96 M/uL (4.70-6.10); White Blood Count 5.51 K/ul (4.8-10.8)
[2023-07-09 04:52] LABS: Anion Gap 8 (3-11); BUN Creatinine Ratio 15.3 (10-20); Blood Urea Nitrogen 9 mg/dl (6-23); Calcium 8.9 mg/dl (8.6-10.3); Carbon Dioxide 24 mmol/L (21-32); Chloride 107 mmol/L (98-107); Creatinine Clr Calc Pharmacy 169.6 ml/min; Est GFR (African American) > 150.0 ml/min; Est GFR (Non-African American) 134.9 ml/min; Glucose 84 mg/dl (70-99(Fasting)); Potassium 3.7 mmol/L (3.5-5.1); Sodium 139 mmol/L (136-145)
[2023-07-09 07:02] LABS: Estimated Average Glucose 91 mg/dl; Hemoglobin A1C 4.8 % (4.5-5.6)
[2023-07-09] MEDS: levETIRAcetam 500 MG TAB PO SCH (07:44)
[2023-07-09] MEDS: DIVALPROEX DELAY RELEASE 250 MG TABEC PO SCH (07:45)
[2023-07-09] MEDS ORDERED: BENZOYL PEROXIDE 10% TOP SCH (09:00)
[2023-07-09] MEDS ORDERED: MINERAL OIL HYDROPHIL PETROLAT TOP SCH (09:00)
--- NOTE | 2023-07-09 09:41 | XRay Report ---
XR chest 1V portable CLINICAL HISTORY: ingested foreign body TECHNIQUE: Single frontal radiograph of the chest was obtained. Comparison: Comparison is made to chest radiograph 04/26/2023 FINDINGS: No lines and tubes are seen. The cardiomediastinal silhouette is normal. The lungs are clear. No evid ence of pleural effusion or pneumothorax. IMPRESSION: No acute chest disease. ACT 112: Negative or not required by law. Electronically signed by: Speedy Schofield M.D. 07/09/2023 9:40 AM
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
--- NOTE | 2023-07-09 10:53 | XRay Report ---
XR KUB/Abdomen 1 view CLINICAL HISTORY: ingested foreign body TECHNIQUE: 1 view of the abdomen was obtained. Comparison: None available at the time of this dictation. FINDINGS: Radiodensities are noted in the left upper quadrant. The osseous structures are grossly unremarkable. The bowel gas pattern is nonobstructive. A moderate amount of stool is noted within the large bowel. IMPRESSION: Radiodensities in the left upper quadrant of the abdomen are compatible with ingested foreign bodies. ACT 112: Negative or not required by law. Electronically signed by: Speedy Schofield M.D. 07/09/2023 10:50 AM
--- NOTE | 2023-07-09 10:57 | XRay Report ---
XR finger(s) LT min 2V CLINICAL HISTORY: left pinky swelling TECHNIQUE: 3 views of the left fifth digit were obtained. Comparison: Comparison is made to left hand radiograph 06/10/2023 FINDINGS: Comminuted fracture of the fifth distal phalanx tuft is seen. Joint spaces are well-preserved. Soft t issue swelling is seen about the digit. IMPRESSION: Comminuted fracture of the fifth digit distal phalanx tuft. ACT 112: Negative or not required by law. Electronically signed by: Speedy Schofield M.D. 07/09/2023 10:55 AM
[2023-07-09] MEDS ORDERED: MIDAZOLAM HCL 1 MG/ML 2ML VIAL ONE (12:01)
[2023-07-09] MEDS ORDERED: SUCCINYLCHOLINE CHLORIDE 20 MG/ML 10 ML VIAL IV ONE (12:04)
[2023-07-09] MEDS ORDERED: DEXAMETHASONE SOD INJ 4 MG/ML VIAL ONE (12:04)
[2023-07-09] MEDS ORDERED: LIDOCAINE 2% 2 ML VIAL/AMP(20MG/ML) INFIL ONE (12:04)
[2023-07-09] MEDS ORDERED: ROCURONIUM BROMIDE 10 MG/ML 5 ML VIAL IV ONE (12:04)
[2023-07-09] MEDS ORDERED: PROPOFOL IV EMULSION 10 MG/ML 20 ML VIAL IV ONE (12:04)
[2023-07-09] MEDS ORDERED: ONDANSETRON INJ 2 MG/ML 2 ML VIAL ONE (12:04)
[2023-07-09] MEDS ORDERED: ePHEDrine sulfate 50 MG/ML AMP IV PRN (12:12)
[2023-07-09] MEDS ORDERED: ATROPINE SULFATE 0.1 MG/ML 10ML SYR IV PRN (12:12)
[2023-07-09] MEDS ORDERED: fentaNYL citrate PF 100 MCG/2 ML VIAL IV PRN (12:12)
[2023-07-09] MEDS ORDERED: HYDROmorphone INJ 1 MG/ML SYRINGE IV PRN (12:12)
[2023-07-09] MEDS ORDERED: ONDANSETRON INJ 2 MG/ML 2 ML VIAL IV PRN (12:12)
--- NOTE | 2023-07-09 12:12 | Anesthesiology Consultation ---
Date of Service July 09, 2023 Assessment & Plan ASA ASA2 Proposed Anesthesia Anesthesia Type: General Risk / Benefits Reviewed With: PT / POA / Parent / Guardian, Accepts Plan and Informed Consent Obtained History Surgery Operation Date: 07/09/23 11:30 Proposed Procedures p Esophagogastroduodenoscopy - Shan Parish Jr, MD Height/Weight Height: 5 ft 7 in Weight: 67.8 kg Allergies Allergy/AdvReac Type Severity Reaction Status Date / Time Penicillins AdvReac Rash Verified 07/08/23 22:10 trazodone AdvReac Anxiety Verified 07/08/23 22:10 Medications Home Medications Medication Instructions Recorded Confirmed Last Taken calcium polycarbophil 625 mg 1,250 mg PO DAILY 05/24/23 07/08/23 07/08/23 tablet (FiberCon) levetiracetam 500 mg tablet 1,500 mg PO BID 05/24/23 07/08/23 07/08/23 (Keppra) mirtazapine 15 mg tablet (Remeron) 15 mg PO HS 05/24/23 07/08/23 07/08/23 paroxetine HCl 40 mg tablet (Paxil) 40 mg PO HS 05/24/23 07/08/23 07/08/23 benzoyl peroxide 10 % lotion (Acne 1 applic topical DAILY 07/08/23 07/08/23 Unknown Medication) divalproex 250 mg tablet,delayed 250 mg PO QAM 07/08/23 07/08/23 07/08/23 release (Depakote) divalproex 500 mg tablet,delayed 500 mg PO HS 07/08/23 07/08/23 07/08/23 release mineral oil-hydrophil petrolat 1 applic topical DAILY 07/08/23 07/08/23 07/08/23 topical ointment pyrithione zinc 1 % shampoo 1 applic topical QPM 07/08/23 07/08/23 07/08/23 risperidone 1 mg tablet 1 mg PO HS 07/08/23 07/08/23 07/08/23 Active Medications Generic Name Dose Route Start Last Admin Trade Name Freq PRN Reason Stop Dose Admin Divalproex Sodium 250 mg 07/09/23 09:00 07/09/23 07:45 Divalproex Delay Release 250 Mg Tabec PO 08/08/23 08:59 250 mg QAM AIDEN Administration Lactated Ringer's 1,000 mls @ 75 mls/hr 07/09/23 00:58 07/09/23 01:55 Lr IV 07/09/23 14:17 75 mls/hr .[id number] STA Administration Levetiracetam 1,500 mg 07/09/23 09:00 07/09/23 07:44 Levetiracetam 500 Mg Tab PO 08/08/23 08:59 1,500 mg BID AIDEN Administration NPO Date Last Intake of Fluids: 07/08/23 Time Last Intake of Fluids: 23:55 Date Last Intake of Solids: 07/08/23 Time Last Intake of Solids: 23:55 Exercise / Class Metabolic Activity II 4-5 Yardwork/Stairs/Walk up hill Past Anesthesia History No Hx of Anesthesia Complications and No Family Hx of Anesthesia Complications History of PONV No Hx of PONV and No Hx of Motion Sickness Social History Smoking Status: Former smoker Do You Dip or Chew Tobacco: No Hx Alcohol Use: No Hx Substance Use: No substance use type: does not use Review of Systems denies fever/cough/ colds/ chest pain/ SOB/ MANINDER denies MANINDER Physical Exam Vital Signs Last Vital Signs Temp 36.8 C 07/09/23 10:01 Pulse 89 07/09/23 10:01 Resp 16 07/09/23 10:01 BP 115/80 07/09/23 10:01 Pulse Ox 94 07/09/23 10:01 O2 Del Method Room Air 07/09/23 10:01 ENMT Mouth: no TMJ abnormality and no dentition abnormality Thyromental Distance: > or= 3.5 Finger Breadths Mallampati Class: II Neck neck extension not limited Respiratory normal respiratory effort; no respiratory distress Auscultation: lungs clear to auscultation bilaterally Cardiovascular Rate/Rhythm: regular rate and regular rhythm Neurologic moves all extremities Psychiatric Orientation: alert and oriented x 3 Testing Laboratory Results 07/09/23 04:11 07/09/23 04:11 PT 11.9 Seconds (9.0-12.0) 07/08/23 22:13 INR 1.1 (0.9-1.1) 07/08/23 22:13 APTT 26 Seconds (21-31) 07/08/23 22:13 Hemoglobin A1c 4.8 % (4.5-5.6) 07/08/23 22:20
--- NOTE | 2023-07-09 12:44 | GI REPORT ---
Patient Name: Jh Rodríguez Procedure Date: 07/09/2023 11:35 AM Date of : 1990 Admit Type: Inpatient Age: 32 Gender: Male Attending MD: Shan Parish MD, Procedure: Upper GI endoscopy Providers: Shan Parish MD Referring MD: Lucas Wolf Md Indications: Foreign body in the stomach Medicines: General Anesthesia Complications: No immediate complications. Estimated Blood Loss: Estimated blood loss: none. Procedure: Pre-Anesthesia Assessment: - Prior to the procedure, a History and Physical was performed, and patient medications and allergies were reviewed. The patient's tolerance of previous anesthesia was also reviewed. The risks and benefits of the procedure and the sedation options and risks were discussed with the patient. All questions were answered, and informed consent was obtained. Prior Anticoagulants: The patient has taken no anticoagulant or antiplatelet agents. ASA Grade Assessment: II - A patient with mild systemic disease. After reviewing the risks and benefits, the patient was deemed in satisfactory condition to undergo the procedure. After obtaining informed consent, the endoscope was passed under direct vision. Throughout the procedure, the patient's blood pressure, pulse, and oxygen saturations were monitored continuously. The Endoscope was introduced through the mouth, and advanced to the second part of duodenum. The upper GI endoscopy was accomplished without difficulty. The patient tolerated the procedure well. Findings: The esophagus was normal. Three flex type ink pens were found in the gastric fundus. Removal was accomplished with a snare. Inspection confirmed removal of all ingested foreign bodies The examined duodenum was normal. Impression: - Normal esophagus. - Three flex type ink pens were found in the stomach. Removal was successful. - Normal examined duodenum. Recommendation: - Return [facility] for [facility] care. Shan Parish MD 07/09/2023 12:44:01 PM Note Initiated On: 07/09/2023 11:35 AM Number of Addenda: 0 I attest to the content of the Intraoperative Record and orders documented therein, exceptions below {[id number]}
--- NOTE | 2023-07-09 12:51 | Anesthesiology Progress Note ---
Date of Service July 09, 2023 Anesthesia Post Procedure Vital Signs Vital Signs: Temp Pulse Pulse Resp BP BP Pulse Ox 07/09/23 10:01 36.8 C 89 16 115/80 94 07/09/23 07:23 36.4 C 80 18 124/86 100 07/09/23 06:26 90 18 114/85 96 07/09/23 03:48 63 07/08/23 23:56 74 07/08/23 23:56 78 20 118/81 96 07/08/23 21:25 99 H 18 149/106 H 96 O2 Del Method 07/09/23 10:01 Room Air 07/09/23 07:23 Room Air 07/09/23 06:26 Room Air 07/09/23 03:48 07/08/23 23:56 07/08/23 23:56 Room Air 07/08/23 21:25 Room Air Transfer of Care Handoff Completed per policy Notes Mental Status: alert / awake / arousable and participated in evaluation Patient Amnestic to Procedure: Yes Nausea / Vomiting: adequately controlled Pain: adequately controlled Airway Patency, RR, SpO2: stable & adequate BP & HR: stable & adequate Hydration State: stable & adequate Anesthetic Complications: no major complications apparent and Pt Satisfied with anesthetic care
--- NOTE | 2023-07-09 13:15 | Hospitalist Progress Note ---
Date of Service July 09, 2023 Assessment & Plan (1) Foreign body ingestion: Plan: Foreign body ingestion Suicidal/self-harm intent H/O mood disorder --KUB:Radiodensities in the left upper quadrant of the abdomen are compatible with ingested foreign bodies. --S/P EGD:Normal esophagus.Three flex type ink pens were found in the stomach. Removal was successful. Normal examined duodenum. -Appreciate GI input Continue IV fluids Psychiatry consulted Suicidal precautions Seizure disorder Continue home medications Traumatic phalangeal fracture, left fifth digit --Finger X ray:Comminuted fracture of the fifth digit distal phalanx tuft. Pain is controlled Chronic anemia Hb stable Hyperglycemia HbA1c 4.8 DVT Px: SCDs for now Code Status Full code Admission and Anticipated Discharge Date Admission Date: July 09, 2023 Subjective Patient is seen and examined at bedside Admits to have abdominal pain in the lower quadrants predominantly this morning Also reports left fifth finger tenderness Denies any chest pain, dyspnea, dizziness Present guards at bedside No other complaints Plan for EGD today Review of Systems Review of Systems: All systems reviewed & are unremarkable except as noted in Subjective Physical Exam Physical Exam: Physical Exam: Vitals signs as noted above General Appearance:Moderately built and nourished, no apparent distress Head: normocephalic, Atraumatic Eyes: normal inspection, EOMI Neck: supple, Trachea midline Respiratory/Chest: Normal breath sounds, CTA, No accessory muscle use Cardiovascular: S1, S2, No murmur Abdomen/GI:Soft, mild tender, Bowel sounds present Extremities/Musculoskeletal:normal inspection, no edema, Left 5th distal digit tender Neurologic/Psych:AAOX3, grossly no focal neurological deficits Skin: normal color, warm Results & Data Results & Data Vital Signs (Past 12 Hours) Vital Signs Temp Pulse Pulse Pulse Resp BP BP 07/09/23 13:05 85 23 109/66 07/09/23 12:57 36.0 C L 88 18 116/74 07/09/23 10:01 36.8 C 89 16 115/80 07/09/23 07:23 36.4 C 80 18 124/86 07/09/23 06:26 90 18 114/85 07/09/23 03:48 63 Pulse Ox O2 Del Method O2 Flow Rate 07/09/23 13:05 99 Oxymask 8 07/09/23 12:57 96 Oxymask 8 07/09/23 10:01 94 Room Air 07/09/23 07:23 100 Room Air 07/09/23 06:26 96 Room Air 07/09/23 03:48 Laboratory Results Short CBC 07/08/23 07/09/23 Range/Units 22:13 04:11 WBC 6.16 5.51 (4.8-10.8) K/ul Hgb 13.9 L 13.5 L (14.0-18.0) g/dl Hct 39.4 L 36.8 L (42.0-52.0) % Plt Count 320 313 (130-400) K/uL BMP 07/08/23 07/09/23 22:13 04:11 Sodium 140 139 Potassium 4.5 3.7 Chloride 106 107 Carbon Dioxide 29 24 BUN 10 9 Creatinine 0.71 0.59 L Glucose 123 H 84 Calcium 9.7 8.9 Liver Function 07/08/23 Range/Units 22:13 Total Bilirubin 0.6 (0.2-1.0) mg/dl Direct Bilirubin 0.2 (0-0.2) mg/dl AST 18 (13-39) U/L ALT 16 (7-52) U/L Alkaline Phosphatase 58 (34-104) U/L Albumin 4.7 (3.4-5.0) gm/dl (1) Foreign body ingestion Encounter type: initial encounter Qualified Code(s): T18.9XXA - Foreign body of alimentary tract, part unspecified, initial encounter
--- NOTE | 2023-07-09 13:28 | Anesthesiology Progress Note ---
Date of Service July 09, 2023 Anesthesia Post Procedure Vital Signs Vital Signs: Temp Pulse Pulse Pulse Resp BP BP 07/09/23 13:25 36.5 C 74 18 113/77 07/09/23 13:15 75 21 112/76 07/09/23 13:05 85 23 109/66 07/09/23 12:57 36.0 C L 88 18 116/74 07/09/23 10:01 36.8 C 89 16 07/09/23 07:23 36.4 C 80 18 07/09/23 06:26 90 18 07/09/23 03:48 63 07/08/23 23:56 74 07/08/23 23:56 78 20 07/08/23 21:25 99 H 18 149/106 H BP Pulse Ox O2 Del Method O2 Flow Rate 07/09/23 13:25 98 Room Air 07/09/23 13:15 95 Room Air 07/09/23 13:05 99 Oxymask 8 07/09/23 12:57 96 Oxymask 8 07/09/23 10:01 115/80 94 Room Air 07/09/23 07:23 124/86 100 Room Air 07/09/23 06:26 114/85 96 Room Air 07/09/23 03:48 07/08/23 23:56 07/08/23 23:56 118/81 96 Room Air 07/08/23 21:25 96 Room Air Transfer of Care Handoff Completed per policy Notes Mental Status: alert / awake / arousable and participated in evaluation Patient Amnestic to Procedure: Yes Nausea / Vomiting: adequately controlled Pain: adequately controlled Airway Patency, RR, SpO2: stable & adequate BP & HR: stable & adequate Hydration State: stable & adequate Anesthetic Complications: no major complications apparent and Pt Satisfied with anesthetic care
[2023-07-09] MEDS: SODIUM CHLORIDE 0.9% 1,000 ML IV SCH (13:41)
[2023-07-09] MEDS: DIVALPROEX DELAY RELEASE 500 MG TAB PO SCH (19:44)
[2023-07-09] MEDS: MIRTAZAPINE TAB 15 MG TAB PO SCH (19:45)
[2023-07-09] MEDS: PARoxetine HCL 20 MG TAB PO SCH (19:45)
[2023-07-09] MEDS: risperiDONE 1 MG TABLET PO SCH (19:45)
[2023-07-09] MEDS ORDERED: PYRITHIONE ZINC TOP SCH (21:00)
[2023-07-10 07:44] LABS: Hematocrit (blood only) 40.1 % (42.0-52.0); Hemoglobin 14.4 g/dl (14.0-18.0); Mean Corpuscular Hemoglobin 33.6 pg (25.0-34.0); Mean Corpuscular Hgb Conc 35.9 g/dL (32.0-36.0); Mean Corpuscular Volume 93.5 fL (80.0-100.0); Mean Platelet Volume 9.2 fL (9.4-12.4); Platelet Count 319 K/uL (130-400); RDW Coefficient of Variation 12.2 % (11.5-14.5); RDW Standard Deviation 42.2 fL (36.4-46.3); Red Blood Count 4.29 M/uL (4.70-6.10); White Blood Count 7.65 K/ul (4.8-10.8)
[2023-07-10 08:06] LABS: Anion Gap 7 (3-11); BUN Creatinine Ratio 15.6 (10-20); Blood Urea Nitrogen 10 mg/dl (6-23); Calcium 9.5 mg/dl (8.6-10.3); Carbon Dioxide 26 mmol/L (21-32); Chloride 106 mmol/L (98-107); Creatinine Clr Calc Pharmacy 156.4 ml/min; Est GFR (African American) > 150.0 ml/min; Est GFR (Non-African American) 130.5 ml/min; Glucose 91 mg/dl (70-99(Fasting)); Potassium 4.3 mmol/L (3.5-5.1); Sodium 139 mmol/L (136-145)
--- NOTE | 2023-07-10 09:11 | Gastroenterology Progress Note ---
Date of Service July 10, 2023 Assessment & Plan (1) Foreign body ingestion: Plan: No problems from my standpoint. Should be good to go back to intermediate. Will sign off Admission and Anticipated Discharge Date Admission Date: July 09, 2023 Subjective no problems after procedure. Reports having to spit mucus in a towel after eating Physical Exam Constitutional: WD/WN, vitals as above Results & Data Vital Signs (Past 12 Hours) Vital Signs Temp Pulse Resp BP Pulse Ox O2 Del Method 07/10/23 07:11 36.8 C 84 16 131/80 98 Room Air (1) Foreign body ingestion Encounter type: initial encounter Qualified Code(s): T18.9XXA - Foreign body of alimentary tract, part unspecified, initial encounter
--- NOTE | 2023-07-10 11:14 | Orthopedic Consultation ---
Date of Consultation July 10, 2023 Assessment & Plan (1) Closed fracture of finger, phalanx, distal: Left pinky finger tuft fracture, comminuted Findings and plan discussed with patient. Continue with conservative treatment including icing and elevating. He can do range of motion with that finger as to lerated. Avoid any reinjury. Could do an AlumaFoam splint for protection however this is usually not allowed at the intermediate. Case discussed with Dr. Prather. Follow-up at the intermediate. Will sign off please TigerText with any questions or concerns. Supervising Physician Co-Signing Physician Notes I saw and examined the patient, reviewed his imaging findings, spoke with Dr. Marshall in the Emergency Room about him, formulated the above plan, and performed the substantive portion of the visit. Agree with above note. This is a stable fracture pattern and should heal with simple activity modification and time. Patient has a history of ingesting objects, which is another reason no external splint should be used. Follow-up with the intermediate. History of Present Illness Reason for Consultation: left pinky tuft fracture Attending Physician: Lucas Wolf MD History of Present Illness Patient is a 32-year-old male who injured his left pinky finger on the . He says he also injured it 3 weeks ago when he smashed against glass. He said it never got better and then on the during an extraction it was injured again. He reports pain at the distal part of his finger that is worse with putting pressure on it. He says it feels numb. Denies any pain in the rest of his hand. Allergies Allergy/AdvReac Type Severity Reaction Status Date / Time Penicillins AdvReac Rash Verified 07/08/23 22:10 trazodone AdvReac Anxiety Verified 07/08/23 22:10 Home Medications Medication Instructions Recorded Confirmed Type calcium polycarbophil 625 mg 1,250 mg PO DAILY 05/24/23 07/08/23 History tablet (FiberCon) levetiracetam 500 mg tablet 1,500 mg PO BID 05/24/23 07/08/23 History (Keppra) mirtazapine 15 mg tablet (Remeron) 15 mg PO HS 05/24/23 07/08/23 History paroxetine HCl 40 mg tablet (Paxil) 40 mg PO HS 05/24/23 07/08/23 History benzoyl peroxide 10 % lotion (Acne 1 applic topical DAILY 07/08/23 07/08/23 History Medication) divalproex 250 mg tablet,delayed 250 mg PO QAM 07/08/23 07/08/23 History release (Depakote) divalproex 500 mg tablet,delayed 500 mg PO HS 07/08/23 07/08/23 History release mineral oil-hydrophil petrolat 1 applic topical DAILY 07/08/23 07/08/23 History topical ointment pyrithione zinc 1 % shampoo 1 applic topical QPM 07/08/23 07/08/23 History risperidone 1 mg tablet 1 mg PO HS 07/08/23 07/08/23 History Patient History Social History Smoking Status: Former smoker Tobacco Type: Cigarettes Second Hand Exposure: No; Do You Dip or Chew Tobacco: No; Tobacco Cessation Education Requested by Patient: No Hx Alcohol Use: No Hx Substance Use: No Preferred Language: [place] Communication Ability: Effective Evs Manager Required: No Current Living Situation: Other Current Living Situation Comment: [facility] Other Information That Helps Us Care for You: No Feels Safe at Home: Yes Safety Concerns: Feels Safe At This Time Assistive Devices: None Physical Exam Physical Exam: Upon examination of patient's left pinky finger there is mild swelling and bruising. Skin is intact. He is tender to the touch. He is able to feel pressure and sensation distally. Skin is warm and pink and perfusable. 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 He can move at the MCP and PIP joints. Due to the pain he struggles to move the tip of his finger but I am able to passively move him. No subungual hematoma is present. Results & Data Vital Signs (Past 12 Hours) Vital Signs Temp Pulse Resp BP Pulse Ox O2 Del Method 07/10/23 07:11 36.8 C 84 16 131/80 98 Room Air (1) Closed fracture of finger, phalanx, distal Encounter type: initial encounter Finger: little finger Fracture alignment: nondisplaced Laterality: left Qualified Code(s): S62.667A - Nondisplaced fracture of distal phalanx of left little finger, initial encounter for closed fracture
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
== END 2023-07-10 16:05 ==
LOC: ED 21:18 → EDINP 21:18 → 3E 07-09 03:37

== ENCOUNTER 2023-08-16 18:57 | Observation (INO) ==
--- NOTE | 2023-08-16 19:25 | ED Triage Note ---
Date of Service August 16, 2023 Provider in Triage Author: Caden Jessica A History of Present Illness This patient was briefly evaluated while in triage. An abbreviated physical exam was performed. This patient is a 32-year-old Male who presents to the ED for evaluation of ingestged FB. Pt from [facility] and swallowed 1.5 pencils, 2 sporks, and a flex pen. Ingestion around 5:30pm. States he swallowed them because he doesn't want to be alive anymore. Physical Exam Limited Triage Exam: VITALS: Vitals are noted on the nurse's note and reviewed by myself. Vital signs stable. GENERAL: White male in NAD. HEART: Regular rate and rhythm without murmurs gallops or rubs. LUNGS: Clear to auscultation bilaterally without wheezes, rales or rhonchi. No retractions or accessory muscle use. NEURO: Patient was alert and oriented to person place and time. CN II through XII grossly intact. Initial orders for labs and / or imaging were placed and patient was placed in the waiting area until a bed is available. Please see further documentation for the full ED course. MDM / Impression Impression Impression: Ingestion of foreign body, Suicidal ideation
--- NOTE | 2023-08-16 20:17 | Emergency Department Note ---
Impression & Plan Ingestion of foreign body, Suicidal ideation ED Provider Note NAME: SHLOMO [id number] MUMTAZ AGE: 32 SEX: M : 1990 ARRIVES VIA: Walk-In INFORMANT: Patient ED PROVIDER(S): Medhat Bella MD CHIEF COMPLAINT: Foreign body ingestion. SI. Referred. PLAN: Disposition: Admit MEDICAL DECISION MAKING: The patient is a 32-year-old gentleman, long term inmate at [facility] who presents to the emergency department via walk-in with long term guards for assessment of intentional foreign body ingestion reports swallowing 1.5 pencils, a flex pen, and 2 sports which he reports he ingested at 5 PM this evening. Patient also attempted to "cut his wrist" by using his fingernails on his left wrist. This was cleaned and dressed by the infirmary at [facility]. Patient reports his tetanus status is up-to-date. The patient was seen in this emergency department on 07/07 and was admitted and had endoscopy on 07/08 which demonstrated 3 flex type ink pens in the gastric fundus. These were removed and the patient was discharged. Patient reports he is ingesting these items and attempt to kill himself. Of note, the patient did arrive to emergency department during time of high volume, acuity and prolonged emergency department waiting times. Critical pathways initiated from triage. On evaluation patient is no acute distress, afebrile with stable vital signs. There is no crepitus on palpation of the neck or chest. Abdomen is nontender though patient reports subjective discomfort in the lower abdomen. There is superficial linear laceration of the volar aspect of the left wrist measuring approximately 1 cm with surrounding edema but no discharge and otherwise clean per [facility]. Ulnar pulses palpable and radial pulse is palpable. Distal PMS is intact. Plain films were performed and demonstrates cylindrical foreign body within the area of the gastric antrum suggestive of FlexPen per my preliminary independent interpretation. There is no evidence of free air, pneumothorax or pneumomediastinum. WBC and platelets within normal limits. H/H similar to prior. Chemistry without metabolic acidosis. Lipase is normal. Depakote level is not elevated. Case was reviewed with [facility] on-call, Dr. Frost. Per my description agrees that patient can be scoped in the morning as was done previously. Patient to be NPO. Case was discussed with Dr. Saravia, [facility] hospitalist, who will evaluate the patient for admission. Triage Nursing notes reviewed and agree them. Prior/external medical records reviewed Vital Signs: reviewed Differential diagnosis: Foreign body ingestion, esophageal perforation, gastric perforation, obstruction, esophagitis/gastritis among others considered. ER treatment provided: See below. Laboratory studies: See below Imaging studies: CXR and KUB: Plain films were performed and demonstrates cylindrical foreign body within the area of the gastric antrum suggestive of FlexPen. There is no evidence of free air, pneumothorax or pneumomediastinum per my preliminary independent interpretation. Consultation(s): [facility] on-call, Dr. Frost. Dr. Saravia, [facility] hospitalist. HPI: The patient is a 32-year-old gentleman, long term inmate at [facility] who presents to the emergency department via walk-in with long term guards for assessment of intentional foreign body ingestion reports swallowing 1.5 pencils, a flex pen, and 2 sports which he reports he ingested at 5 PM this evening. Patient also attempted to "cut his wrist" by using his fingernails on his left wrist. This was cleaned and dressed by the infirmary at [facility]. Patient reports his tetanus status is up-to-date. The patient was seen in this emergency department on 07/07 and was admitted and had endoscopy on 07/08 which demonstrated 3 flex type ink pens in the gastric fundus. These were removed and the patient was discharged. Patient reports he is ingesting these items and attempt to kill himself. ROS: See above HPI for pertinent positives & negatives. A total of 10 systems reviewed and were otherwise negative. VITALS:See Below PHYSICAL EXAMINATION: GENERAL: Awake, alert, well-appearing, in no distress HENT: Normocephalic, atraumatic. Oropharynx unremarkable. EYES: Normal conjunctiva. Sclera non-icteric. NECK: Supple. No nuchal rigidity. FROM. No JVD. RESPIRATORY: Clear to auscultation. CARDIAC: Regular rate, normal rhythm. Extremities warm and well perfused. Pulses equal. ABDOMEN: Soft, non-distended. Abdomen is nontender though patient reports subjective discomfort in the lower abdomen. MUSCULOSKELETAL: Chest examination reveals no tenderness. No crepitus on palpation of the neck or chest. The back is symmetrical on inspection without obvious abnormality. There is no CVA tenderness to palpation. No joint edema. LOWER EXTREMITIES: Calves are equal size bilaterally and non-tender. No edema. No discoloration. NEURO: Normal sensorium. No sensory or motor deficits noted. SKIN: No rash or jaundice noted. There is superficial linear laceration of the volar aspect of the left wrist measuring approximately 1 cm with surrounding edema but no discharge and otherwise clean per infirmary. Ulnar pulses palpable and radial pulse is palpable. Distal PMS is intact. Medhat Bella MD Past Med/Surg History Problem List (Updated 08/17/23 @ 02:20 by Medhat Bella MD) Suicidal ideation (Acute) Ingestion of foreign body (Acute) Closed fracture of finger, phalanx, distal (Acute) Closed head injury (Acute) Foreign body ingestion (Acute) Traumatic hematoma of forehead (Acute) Status epilepticus (Acute) Breakthrough seizure Seizure Social History Smoking Status: Former smoker Tobacco Type: Cigarettes Second Hand Exposure: No; Do You Dip or Chew Tobacco: No; Hx Alcohol Use: No Hx Substance Use: No Preferred Language: Finnish Communication Ability: Effective Technology Teacher Required: No Beliefs That Will Affect Care: None Current Living Situation: Other Current Living Situation Comment: [facility] Feels Safe at Home: Yes Safety Concerns: Feels Safe At This Time Assistive Devices: None Allergies Allergies Allergy/AdvReac Type Severity Reaction Status Date / Time Penicillins Allergy Intermediate Rash Verified 08/16/23 21:26 trazodone AdvReac Intermediate Anxiety Verified 08/16/23 21:26 Home Meds Home Medications Medication Instructions Recorded Confirmed calcium polycarbophil 625 mg 1,250 mg PO DAILY 05/24/23 08/16/23 tablet (FiberCon) levetiracetam 500 mg tablet 1,500 mg PO BID 05/24/23 08/16/23 (Keppra) mirtazapine 15 mg tablet (Remeron) 15 mg PO HS 05/24/23 08/16/23 divalproex 250 mg tablet,delayed 250 mg PO QAM 07/08/23 08/16/23 release (Depakote) divalproex 500 mg tablet,delayed 500 mg PO HS 07/08/23 08/16/23 release risperidone 1 mg tablet 1 mg PO HS 07/08/23 08/16/23 min oil-stephenie ean-pet,w-cetyl al 1 ea topical HS 08/16/23 08/16/23 lotion (DermaDaily lotion) paroxetine HCl 10 mg tablet (Paxil) 10 mg PO DAILY 08/16/23 08/16/23 sertraline 50 mg tablet 50 mg PO HS 08/16/23 08/16/23 Results & Data (ED) Vital Signs Vital Signs - 24 hr 08/16/23 19:24 Temperature 36.8 C Temperature Source Temporal Artery Scan Pulse Rate 76 Respiratory Rate 16 Respiratory Depth Normal Blood Pressure 127/83 Blood Pressure Mean 97 Pulse Oximetry 98 Oxygen Delivery Method Room Air Sepsis Recent Fever Within 48 Hours No Sepsis New/Unexplained Change in Mental Status No Sepsis Action Taken by Nursing No Action Required Laboratory Data Attestation: I reviewed the patient's lab results. 08/16/23 19:56 08/16/23 19:56 Lab Results 08/16/23 Range/Units 19:56 WBC 6.55 (4.8-10.8) K/ul RBC 4.15 L (4.70-6.10) M/uL Hgb 13.8 L (14.0-18.0) g/dl Hct 39.1 L (42.0-52.0) % MCV 94.2 (80.0-100.0) fL MCH 33.3 (25.0-34.0) pg MCHC 35.3 (32.0-36.0) g/dL RDW Std Deviation 40.7 (36.4-46.3) fL RDW Coeff of James 11.8 (11.5-14.5) % Plt Count 325 (130-400) K/uL MPV 9.7 (9.4-12.4) fL Immature Gran % (Auto) 0.2 % Neut % (Auto) 61.2 % Lymph % (Auto) 27.6 % Kimball % (Auto) 8.4 % Eos % (Auto) 1.8 % Baso % (Auto) 0.8 % Neut # (Auto) 4.01 (1.40-6.50) K/uL Lymph # (Auto) 1.81 (1.20-3.40) K/uL Kimball # (Auto) 0.55 (0.11-0.59) K/uL Eos # (Auto) 0.12 (0.00-0.50) K/uL Baso # (Auto) 0.05 (0.00-0.20) K/uL Immature Gran # (Auto) 0.01 (0.01-0.20) K/uL Sodium 139 (136-145) mmol/L Potassium 3.8 (3.5-5.1) mmol/L Chloride 103 (98-107) mmol/L Carbon Dioxide 31 (21-32) mmol/L Anion Gap 5 (3-11) BUN 11 (6-23) mg/dl Creatinine 0.77 (0.6-1.4) mg/dl Est Cr Clr Drug Dosing 115.0 ml/min Est GFR ( Amer) 140.1 ml/min Est GFR (Non-Af Amer) 120.9 ml/min BUN/Creatinine Ratio 14.3 (10-20) Glucose 60 L (70-99(Fasting)) mg/dl Calcium 9.7 (8.6-10.3) mg/dl Total Bilirubin 0.4 (0.2-1.0) mg/dl AST 18 (13-39) U/L ALT 16 (7-52) U/L Alkaline Phosphatase 59 (34-104) U/L Total Protein 7.0 (6.0-8.3) gm/dl Albumin 4.8 (3.4-5.0) gm/dl Globulin 2.2 L (2.5-4.0) gm/dl Albumin/Globulin Ratio 2.2 H (0.9-2) Lipase 14 (11-82) U/L Valproic Acid 40 L (50-100) mcg/ml Administered Medications Dextrose/Sodium Chloride (D5w And 1/2nss) 1,000 mls @ 125 mls/hr IV .Q8H AIDEN Stop: 09/15/23 23:09 Last Admin: 08/16/23 23:26 Dose: 125 mls/hr Documented By: PINEDA Pantoprazole Sodium 40 mg/ (Syringe) 10 mls @ 5 mls/min IV BID AIDEN Stop: 09/15/23 23:09 Last Admin: 08/16/23 23:26 Dose: 5 mls/min Documented By: PINEDA Discontinued Medications Divalproex Sodium (Divalproex Delay Release 500 Mg Tab) 500 mg PO NOW ONE Stop: 08/16/23 23:54 Last Admin: 08/17/23 01:09 Dose: 500 mg Documented By: PINEDA Levetiracetam (Levetiracetam 500 Mg Tab) 1,500 mg PO NOW STA Stop: 08/16/23 23:54 Last Admin: 08/17/23 01:09 Dose: 1,500 mg Documented By: PINEDA Mirtazapine (Mirtazapine Tab 15 Mg Tab) 15 mg PO NOW ONE Stop: 08/16/23 23:54 Last Admin: 08/17/23 01:09 Dose: 15 mg Documented By: PINEDA Risperidone (Risperidone 1 Mg Tablet) 1 mg PO NOW STA Stop: 08/16/23 23:54 Last Admin: 08/17/23 01:09 Dose: 1 mg Documented By: PINEDA Sertraline HCl (Sertraline Hcl 50 Mg Tablet) 50 mg PO NOW ONE Stop: 08/16/23 23:54 Last Admin: 08/17/23 01:08 Dose: 50 mg Documented By: PINEDA Discharge Plan Visit Data Chief Complaint: Foreign Body Stated Complaint: SWALLOWED FOREIGN OBJECT, LT WRIST CUT ED Provider: Medhat Bella Discharge Problem: Ingestion of foreign body, Suicidal ideation Patient Disposition: Admitted As Inpatient Discharge Instructions Interventions: ED Discharge Assessment Last Done: 08/16/23 22:17 Discharge Problem: Ingestion of foreign body Qualifiers: Encounter type: initial encounter Qualified Code(s): T18.9XXA - Foreign body of alimentary tract, part unspecified, initial encounter
[2023-08-16 20:31] LABS: Basophils # (auto) 0.05 K/uL (0.00-0.20); Basophils % (auto) 0.8 %; Eosinophils # (auto) 0.12 K/uL (0.00-0.50); Eosinophils % (auto) 1.8 %; Hematocrit (blood only) 39.1 % (42.0-52.0); Hemoglobin 13.8 g/dl (14.0-18.0); Immature Granulocytes # (auto) 0.01 K/uL (0.01-0.20); Immature Granulocytes % (auto) 0.2 %; Lymphocytes # (auto) 1.81 K/uL (1.20-3.40); Lymphocytes % (auto) 27.6 %; Mean Corpuscular Hemoglobin 33.3 pg (25.0-34.0); Mean Corpuscular Hgb Conc 35.3 g/dL (32.0-36.0); Mean Corpuscular Volume 94.2 fL (80.0-100.0); Mean Platelet Volume 9.7 fL (9.4-12.4); Monocytes # (auto) 0.55 K/uL (0.11-0.59); Monocytes % (auto) 8.4 %; Neutrophils # (auto) 4.01 K/uL (1.40-6.50); Neutrophils % (auto) 61.2 %; Platelet Count 325 K/uL (130-400); RDW Coefficient of Variation 11.8 % (11.5-14.5); RDW Standard Deviation 40.7 fL (36.4-46.3); Red Blood Count 4.15 M/uL (4.70-6.10); White Blood Count 6.55 K/ul (4.8-10.8)
[2023-08-16 20:50] LABS: Albumin Globulin Ratio 2.2 (0.9-2); Albumin Level 4.8 gm/dl (3.4-5.0); BUN Creatinine Ratio 14.3 (10-20); Bilirubin,Total 0.4 mg/dl (0.2-1.0); Calcium 9.7 mg/dl (8.6-10.3); Est GFR (African American) 140.1 ml/min; Est GFR (Non-African American) 120.9 ml/min; Globulin 2.2 gm/dl (2.5-4.0); Potassium 3.8 mmol/L (3.5-5.1)
--- NOTE | 2023-08-16 21:30 | History & Physical Report ---
Date of Service August 16, 2023 Assessment & Plan (1) Foreign body ingestion: Plan: 32-year-old male with past medical history significant for seizure disorder, mood disorder, chronic anemia baseline hemoglobin 12-13, past tobacco abuse, history of intentional drug overdose and breakthrough seizures, and history of foreign body ingestion and self-harm was brought in from assisted because of swallowing 1.5 Pencils, FlexPen and two Sporks around 5:30 PM today. And also seemed to attempt to cut his wrist by using his fingernails on the left wrist which was cleaned by [facility] at assisted. Patient states he is seeing things and hearing voices. He was trying to hurt himself. Currently has no thoughts to hurt himself. Patient states when he moved to current assisted his psych medications were changed and they are not helping. Complains of some left-sided headache. And also having severe abdominal pain. Denies any nausea. No sore throat. States no difficulty swallowing. No runny nose or sore throat. No cough. No fevers. No chest pain or shortness of breath. Currently no nausea. Normal bowel and bladder movements. Denies blood in stools. Patient was recently in the hospital admitted on July 09, 2023 with foreign body ingestion s/p EGD and 3 flex inked pens were found in stomach and were removed. At that time he also had traumatic left fifth digit phalangeal fracture and seen by orthopedics conservative management recommended. Currently hemodynamics are stable. Foreign body ingestion History of foreign body ingestions Seems to ingested 1.5 pencils, FlexPen and 2 sporks GI notified by ER N.p.o. IV fluids IV Protonix Pain control Telemetry Seizure disorder On Depakote and Keppra History of mood disorder Suicidal ideation On Paxil,risperidone and Zoloft and Remeron and Depakote States current medications not helping Will consult psychiatry. Seems Paxil dose reduced and zoloft added since last admit. Psychiatry to help with med adjustments. one on one for now Chronic anemia Hemoglobin 13.8 We will follow labs DVT prophylaxis SCDs for now Disposition Telemetry Full code History of Present Illness Chief Complaint: Foreign body ingestion Primary Care Provider: SAJNEEV Farley 32-year-old male with past medical history significant for seizure disorder, mood disorder, chronic anemia baseline hemoglobin 12-13, past tobacco abuse, history of intentional drug overdose and breakthrough seizures, and history of foreign body ingestion and self-harm was brought in from assisted because of swallowing 1.5 Pencils, FlexPen and two Sporks around 5:30 PM today. And also seemed to attempt to cut his wrist by using his fingernails on the left wrist which was cleaned by infirmary at assisted. Patient states he is seeing things and hearing voices. He was trying to hurt himself. Currently has no thoughts to hurt himself. Patient states when he moved to current assisted his psych medications were changed and they are not helping. Complains of some left-sided headache. And also having severe abdominal pain. Denies any nausea. No sore throat. States no difficulty swallowing. No runny nose or sore throat. No cough. No fevers. No chest pain or shortness of breath. Currently no nausea. Normal bowel and bladder movements. Denies blood in stools. Patient was recently in the hospital admitted on July 09, 2023 with foreign body ingestion s/p EGD and 3 flex inked pens were found in stomach and were removed. At that time he also had traumatic left fifth digit phalangeal fracture and seen by orthopedics conservative management recommended. Currently hemodynamics are stable. Past medical history. As mentioned above. Past surgical history. EGD. Social history. Past tobacco use. Occasional alcohol intake. Family history. Heart disease, diabetes Allergies Allergy/AdvReac Type Severity Reaction Status Date / Time Penicillins Allergy Intermediate Rash Verified 08/16/23 21:26 trazodone AdvReac Intermediate Anxiety Verified 08/16/23 21:26 Home Medications Medication Instructions Recorded Confirmed Type calcium polycarbophil 625 mg 1,250 mg PO DAILY 05/24/23 08/16/23 History tablet (FiberCon) levetiracetam 500 mg tablet 1,500 mg PO BID 05/24/23 08/16/23 History (Keppra) mirtazapine 15 mg tablet (Remeron) 15 mg PO HS 05/24/23 08/16/23 History divalproex 250 mg tablet,delayed 250 mg PO QAM 07/08/23 08/16/23 History release (Depakote) divalproex 500 mg tablet,delayed 500 mg PO HS 07/08/23 08/16/23 History release risperidone 1 mg tablet 1 mg PO HS 07/08/23 08/16/23 History min oil-stephenie ean-pet,w-cetyl al 1 ea topical HS 08/16/23 08/16/23 History lotion (DermaDaily lotion) paroxetine HCl 10 mg tablet (Paxil) 10 mg PO DAILY 08/16/23 08/16/23 History sertraline 50 mg tablet 50 mg PO HS 08/16/23 08/16/23 History Past Med/Surg History Problem List (Updated 08/17/23 @ 02:20 by Medhat Bella MD) Suicidal ideation (Acute) Ingestion of foreign body (Acute) Closed fracture of finger, phalanx, distal (Acute) Closed head injury (Acute) Foreign body ingestion (Acute) Traumatic hematoma of forehead (Acute) Status epilepticus (Acute) Breakthrough seizure Seizure Social History Smoking Status: Former smoker Tobacco Type: Cigarettes Second Hand Exposure: No; Do You Dip or Chew Tobacco: No; Hx Alcohol Use: No Hx Substance Use: No Preferred Language: Lithuanian Communication Ability: Effective Circulation Assistant Required: No Beliefs That Will Affect Care: None Current Living Situation: Other Current Living Situation Comment: [facility] Feels Safe at Home: Yes Safety Concerns: Feels Safe At This Time Assistive Devices: None Review of Systems Review of Systems: All systems reviewed & are unremarkable except as noted in HPI & below Physical Exam Physical Exam: General- Not in acute distress. Head- atraumatic Eyes- , EOMI Neck- supple, no JVD. Lungs- clear to auscultation no wheezing or crackles. Heart- regular rhythm; no murmur, no gallop. Abdomen- normal bowel sounds, soft, diffuse tenderness, mild guarding no distension. Extremities- no pretibial edema, no erythema seen. Neuro- alert, oriented EOMI; no facial palsy; no dysarthria; moves extremities. Results & Data Results & Data Vital Signs (Past 12 Hours) Vital Signs Temp Pulse Resp BP Pulse Ox O2 Del Method 08/16/23 19:24 36.8 C 76 16 127/83 98 Room Air Diagnostic Findings Laboratory Results WBC 6.55 K/ul (4.8-10.8) 08/16/23 19:56 RBC 4.15 M/uL (4.70-6.10) L 08/16/23 19:56 Hgb 13.8 g/dl (14.0-18.0) L 08/16/23 19:56 Hct 39.1 % (42.0-52.0) L 08/16/23 19:56 MCV 94.2 fL (80.0-100.0) 08/16/23 19:56 MCH 33.3 pg (25.0-34.0) 08/16/23 19:56 MCHC 35.3 g/dL (32.0-36.0) 08/16/23 19:56 RDW Std Deviation 40.7 fL (36.4-46.3) 08/16/23 19:56 RDW Coeff of James 11.8 % (11.5-14.5) 08/16/23 19:56 Plt Count 325 K/uL (130-400) 08/16/23 19:56 MPV 9.7 fL (9.4-12.4) 08/16/23 19:56 Immature Gran % (Auto) 0.2 % 08/16/23 19:56 Neut % (Auto) 61.2 % 08/16/23 19:56 Lymph % (Auto) 27.6 % 08/16/23 19:56 [place]eton % (Auto) 8.4 % 08/16/23 19:56 Eos % (Auto) 1.8 % 08/16/23 19:56 Baso % (Auto) 0.8 % 08/16/23 19:56 Neut # (Auto) 4.01 K/uL (1.40-6.50) 08/16/23 19:56 Lymph # (Auto) 1.81 K/uL (1.20-3.40) 08/16/23 19:56 [place] # (Auto) 0.55 K/uL (0.11-0.59) 08/16/23 19:56 Eos # (Auto) 0.12 K/uL (0.00-0.50) 08/16/23 19:56 Baso # (Auto) 0.05 K/uL (0.00-0.20) 08/16/23 19:56 Immature Gran # (Auto) 0.01 K/uL (0.01-0.20) 08/16/23 19:56 Sodium 139 mmol/L (136-145) 08/16/23 19:56 Potassium 3.8 mmol/L (3.5-5.1) 08/16/23 19:56 Chloride 103 mmol/L (98-107) 08/16/23 19:56 Carbon Dioxide 31 mmol/L (21-32) 08/16/23 19:56 Anion Gap 5 (3-11) 08/16/23 19:56 BUN 11 mg/dl (6-23) 08/16/23 19:56 Creatinine 0.77 mg/dl (0.6-1.4) 08/16/23 19:56 Est Cr Clr Drug Dosing 115.0 ml/min 08/16/23 19:56 Est GFR ( Amer) 140.1 ml/min 08/16/23 19:56 Est GFR (Non-Af Amer) 120.9 ml/min 08/16/23 19:56 BUN/Creatinine Ratio 14.3 (10-20) 08/16/23 19:56 Glucose 60 mg/dl (70-99(Fasting)) L 08/16/23 19:56 Calcium 9.7 mg/dl (8.6-10.3) 08/16/23 19:56 Total Bilirubin 0.4 mg/dl (0.2-1.0) 08/16/23 19:56 AST 18 U/L (13-39) 08/16/23 19:56 ALT 16 U/L (7-52) 08/16/23 19:56 Alkaline Phosphatase 59 U/L (34-104) 08/16/23 19:56 Total Protein 7.0 gm/dl (6.0-8.3) 08/16/23 19:56 Albumin 4.8 gm/dl (3.4-5.0) 08/16/23 19:56 Globulin 2.2 gm/dl (2.5-4.0) L 08/16/23 19:56 Albumin/Globulin Ratio 2.2 (0.9-2) H 08/16/23 19:56 Lipase 14 U/L (11-82) 08/16/23 19:56 Valproic Acid 40 mcg/ml (50-100) L 08/16/23 19:56 Code Status & VTE Plan VTE Prophylaxis Plan VTE Prophylaxis will be ordered: Yes (1) Foreign body ingestion Encounter type: initial encounter Qualified Code(s): T18.9XXA - Foreign body of alimentary tract, part unspecified, initial encounter
[2023-08-16] MEDS ORDERED: MoRPHine SULFATE 4 MG/ML 1 ML CARP\\VIAL IV PRN (23:10)
[2023-08-16] MEDS: PANTOprazole 40 MG in SYRINGE 0 ML IV SCH (23:26)
[2023-08-16] MEDS: D5W AND 1/2NSS 1,000 ML IV SCH (23:26)
[2023-08-17] MEDS: SERTRALINE HCL 50 MG TABLET PO ONE (01:08)
[2023-08-17] MEDS: MIRTAZAPINE TAB 15 MG TAB PO ONE (01:09)
[2023-08-17] MEDS: levETIRAcetam 500 MG TAB PO STA (01:09)
[2023-08-17] MEDS: DIVALPROEX DELAY RELEASE 500 MG TAB PO ONE (01:09)
[2023-08-17] MEDS: risperiDONE 1 MG TABLET PO STA (01:09)
[2023-08-17 06:33] LABS: Hematocrit (blood only) 39.4 % (42.0-52.0); Hemoglobin 13.8 g/dl (14.0-18.0); Mean Corpuscular Hemoglobin 32.8 pg (25.0-34.0); Mean Corpuscular Volume 93.6 fL (80.0-100.0); Mean Platelet Volume 9.5 fL (9.4-12.4); Platelet Count 278 K/uL (130-400); RDW Coefficient of Variation 11.6 % (11.5-14.5); RDW Standard Deviation 39.4 fL (36.4-46.3); Red Blood Count 4.21 M/uL (4.70-6.10); White Blood Count 4.41 K/ul (4.8-10.8)
[2023-08-17 06:46] LABS: Anion Gap 6 (3-11); BUN Creatinine Ratio 16.4 (10-20); Blood Urea Nitrogen 10 mg/dl (6-23); Calcium 8.7 mg/dl (8.6-10.3); Carbon Dioxide 27 mmol/L (21-32); Chloride 109 mmol/L (98-107); Est GFR (African American) > 150.0 ml/min; Est GFR (Non-African American) 133.1 ml/min; Glucose 86 mg/dl (70-99(Fasting)); Sodium 142 mmol/L (136-145)
[2023-08-17 07:00] LABS: Basophils # (auto) 0.04 K/uL (0.00-0.20); Basophils % (auto) 0.9 %; Eosinophils # (auto) 0.16 K/uL (0.00-0.50); Eosinophils % (auto) 3.6 %; Immature Granulocytes # (auto) 0.01 K/uL (0.01-0.20); Immature Granulocytes % (auto) 0.2 %; Lymphocytes # (auto) 2.33 K/uL (1.20-3.40); Lymphocytes % (auto) 52.8 %; Monocytes # (auto) 0.33 K/uL (0.11-0.59); Monocytes % (auto) 7.5 %; Neutrophils # (auto) 1.54 K/uL (1.40-6.50)
--- NOTE | 2023-08-17 08:02 | XRay Report ---
XR chest 1V portable, XR KUB/Abdomen 1 view CLINICAL HISTORY: ingested fb, 1.5pencils, flexpen, 2sporks TECHNIQUE: 1 views of the abdomen were obtained. A single view of the chest was obtained. Comparison: Comparison is made to chest radiograph 07/08/2023 FINDINGS: A radiodensity projects over the left upper quadrant of the abdomen. The cardiomediastinal silhouette is normal. The lungs are clear. No evidence of pleural effusion or pneumothorax. The osseous structures are grossly unremarkable. The bowel gas pattern is nonobstructive. A moderate amount of stool is noted within the large bowel. IMPRESSION: Radiodensity projecting over the left upper quadrant of the abdomen represent ingested foreign body w ithin the stomach or less likely splenic flexure. ACT 112: Negative or not required by law. Electronically signed by: Speedy Schofield M.D. 08/17/2023 8:01 AM
--- NOTE | 2023-08-17 09:06 | Gastrointestinal Consultation ---
Date of Consultation August 17, 2023 Assessment & Plan (1) Foreign body ingestion: Continue supportive care Continue current medications Recommend EGD with foreign body removal now. Supervising Physician Co-Signing Physician Notes Agree with KRISTAN Pradhan as above Interviewed and examined patient and agree with above Continue current therapy and supportive care Proceed with EGD with Foreign body removal now in OR with General anesthesia. History of Present Illness Reason for Consultation: foreign body ingestion Requesting Physician: Ez Saravia MD Attending Physician: Heather Maldonado MD History of Present Illness Patient is a 32 year old male with past medical history of mood disorder and previous ingestion of a foreign body, here today from [facility] after having swallowed a flex pen, 1.5 pencils, and 2 sporks. He also had attempted suicide by cutting himself on his left wrist with his fingernails. He had previous foreign body ingestion last month and had EGD 07/09/[address] Parish of [facility] for removal of pens. He admit to some stomach discomfort. no nausea/vomiting. no bowel movements since admission per patient. KUB 08/16/23 Radiodensity projecting over the left upper quadrant of the abdomen represent ingested foreign body within the stomach or less likely splenic flexure. Allergies Allergy/AdvReac Type Severity Reaction Status Date / Time Penicillins Allergy Intermediate Rash Verified 08/16/23 21:26 trazodone AdvReac Intermediate Anxiety Verified 08/16/23 21:26 Home Medications Medication Instructions Recorded Confirmed Type calcium polycarbophil 625 mg 1,250 mg PO DAILY 05/24/23 08/16/23 History tablet (FiberCon) levetiracetam 500 mg tablet 1,500 mg PO BID 05/24/23 08/16/23 History (Keppra) mirtazapine 15 mg tablet (Remeron) 15 mg PO HS 05/24/23 08/16/23 History divalproex 250 mg tablet,delayed 250 mg PO QAM 07/08/23 08/16/23 History release (Depakote) divalproex 500 mg tablet,delayed 500 mg PO HS 07/08/23 08/16/23 History release risperidone 1 mg tablet 1 mg PO HS 07/08/23 08/16/23 History min oil-stephenie ean-pet,w-cetyl al 1 ea topical HS 08/16/23 08/16/23 History lotion (DermaDaily lotion) paroxetine HCl 10 mg tablet (Paxil) 10 mg PO DAILY 08/16/23 08/16/23 History sertraline 50 mg tablet 50 mg PO HS 08/16/23 08/16/23 History Patient History Medical History (Updated 08/17/23 @ 09:15 by Marcelino Hanna MD) Tobacco abuse Anemia Suicidal ideation hx/o Ingestion of foreign body Seizure Encounter for pre-operative examination Surgical History (Updated 08/17/23 @ 09:16 by Marcelino Hanna MD) H/O esophagogastroduodenoscopy Social History Smoking Status: Former smoker Tobacco Type: Cigarettes Second Hand Exposure: No; Do You Dip or Chew Tobacco: No; Hx Alcohol Use: No Hx Substance Use: No Preferred Language: [place] Islander Communication Ability: Effective Customer Facilities Supervisor Required: No Beliefs That Will Affect Care: None Current Living Situation: Other Current Living Situation Comment: [facility] Feels Safe at Home: Yes Safety Concerns: Feels Safe At This Time Assistive Devices: None Physical Exam Constitutional: WD/WN, vitals as above Respiratory: normal respiratory effort, lungs clear to auscultation Cardiovascular: RRR Gastrointestinal (Abdomen): right sided abdominal pain to palpation, no guarding, soft, normal bowel sounds. Psychiatric: Orientation: alert and oriented x 3 Results & Data Vital Signs (Past 12 Hours) Vital Signs Temp Pulse Pulse Resp BP Pulse Ox O2 Del Method 08/17/23 07:16 97.5 F L 66 20 104/65 98 Room Air 08/17/23 03:10 97.3 F L 65 18 129/82 99 Room Air 08/17/23 00:42 Room Air 08/16/23 23:15 54 L 08/16/23 23:09 97.3 F L 66 16 134/79 99 Room Air Coding Level of Care Code 84135 IN/OBS CONSULT LVL 4,60M Diagnoses Foreign body ingestion T18.9XXA Encounter type: initial encounter (1) Foreign body ingestion Encounter type: initial encounter Qualified Code(s): T18.9XXA - Foreign body of alimentary tract, part unspecified, initial encounter
[2023-08-17] MEDS: DIVALPROEX DELAY RELEASE 250 MG TABEC PO SCH (09:07)
[2023-08-17] MEDS: levETIRAcetam 500 MG TAB PO SCH (09:07)
[2023-08-17] MEDS: CALCIUM POLYCARBOPHIL 625MG TAB PO SCH (09:07)
--- NOTE | 2023-08-17 09:17 | Anesthesiology Consultation ---
Date of Service August 17, 2023 Assessment & Plan (1) Encounter for pre-operative examination: Chart Review Chart Review: Acceptable Risk for Surgery and Patient NOT seen in Pre Admission Testing Consults Requested none History Surgery Operation Date: 08/17/23 12:00 Proposed Procedures p Esophagogastroduodenoscopy for Foreign Body Removal - Osiel Mcmanus Case, DO Height/Weight Height: 5 ft 7 in Weight: 68 kg Allergies Allergy/AdvReac Type Severity Reaction Status Date / Time Penicillins Allergy Intermediate Rash Verified 08/16/23 21:26 trazodone AdvReac Intermediate Anxiety Verified 08/16/23 21:26 Medications Home Medications Medication Instructions Recorded Confirmed Last Taken calcium polycarbophil 625 mg 1,250 mg PO DAILY 05/24/23 08/16/23 08/16/23 tablet (FiberCon) levetiracetam 500 mg tablet 1,500 mg PO BID 05/24/23 08/16/23 08/16/23 (Keppra) mirtazapine 15 mg tablet (Remeron) 15 mg PO HS 05/24/23 08/16/23 08/16/23 divalproex 250 mg tablet,delayed 250 mg PO QAM 07/08/23 08/16/23 08/16/23 release (Depakote) divalproex 500 mg tablet,delayed 500 mg PO HS 07/08/23 08/16/23 08/16/23 release risperidone 1 mg tablet 1 mg PO HS 07/08/23 08/16/23 08/16/23 min oil-stephenie ean-pet,w-cetyl al 1 ea topical HS 08/16/23 08/16/23 08/16/23 lotion (DermaDaily lotion) paroxetine HCl 10 mg tablet (Paxil) 10 mg PO DAILY 08/16/23 08/16/23 08/16/23 sertraline 50 mg tablet 50 mg PO HS 08/16/23 08/16/23 Unknown Active Medications Generic Name Dose Route Start Last Admin Trade Name Freq PRN Reason Stop Dose Admin Calcium Polycarbophil 1,250 mg 08/17/23 09:00 08/17/23 09:07 Calcium Polycarbophil 625mg Tab PO 09/16/23 08:59 1,250 mg DAILY AIDEN Administration Divalproex Sodium 250 mg 08/17/23 09:00 08/17/23 09:07 Divalproex Delay Release 250 Mg Tabec PO 09/16/23 08:59 250 mg QAM AIDEN Administration Dextrose/Sodium Chloride 1,000 mls @ 125 mls/hr 08/16/23 23:10 08/17/23 07:06 D5w And 1/2nss IV 09/15/23 23:09 125 mls/hr .Q8H AIDEN Administration Pantoprazole Sodium 40 mg/ 10 mls @ 5 mls/min 08/16/23 23:10 08/17/23 09:07 Syringe IV 09/15/23 23:09 5 mls/min BID AIDEN Administration Levetiracetam 1,500 mg 08/17/23 09:00 08/17/23 09:07 Levetiracetam 500 Mg Tab PO 09/16/23 08:59 1,500 mg BID AIDEN Administration Miscellaneous 1 each 08/17/23 08:00 08/17/23 07:15 Order Awaiting Action: Min Oil-Stephenie Ean-Pet,W-Cetyl Al [Dermadaily] Lotion N/A 09/16/23 07:59 Not Given QS AIDEN Past Medical History Medical History (Updated 08/17/23 @ 09:15 by Marcelino Hanna MD) Tobacco abuse Anemia Suicidal ideation hx/o Ingestion of foreign body Seizure Encounter for pre-operative examination (1) Foreign body ingestion: Plan: 32-year-old male with past medical history significant for seizure disorder, mood disorder, chronic anemia baseline hemoglobin 12-13, past tobacco abuse, history of intentional drug overdose and breakthrough seizures, and history of foreign body ingestion and self-harm [facility] because of swallowing 1.5 Pencils, FlexPen and two Sporks around 5:30 PM today. And also seemed to attempt to cut his wrist by using his fingernails on the left wrist which [facility]. Patient states he is seeing things and hearing voices. He was trying to hurt himself. Past Surgical History Surgical History (Updated 08/17/23 @ 09:16 by Marcelino Hanna MD) H/O esophagogastroduodenoscopy EGD 07/09/[address] Parish at [facility]: [facility]. Grade 1 view. Elective Glidescope #3. 7.5 ETT without difficulty. Past Anesthesia History No Hx of Anesthesia Complications and No Family Hx of Anesthesia Complications Social History Smoking Status: Former smoker Do You Dip or Chew Tobacco: No Hx Alcohol Use: No Hx Substance Use: No substance use type: does not use Physical Exam Vital Signs Last Vital Signs Temp 36.4 C L 08/17/23 07:16 Pulse 66 08/17/23 07:16 Resp 20 08/17/23 07:16 BP 104/65 08/17/23 07:16 Pulse Ox 98 08/17/23 07:16 O2 Del Method Room Air 08/17/23 07:16 Testing Laboratory Results 08/17/23 05:56 08/17/23 05:56 Electrocardiogram Date: 05/24/23 DICTATED BY: Jacek Rodriguez MD Test Reason : Blood Pressure : / mmHG Vent. Rate : 131 BPM Atrial Rate : 131 BPM P-R Int : 130 ms QRS Dur : 088 ms QT Int : 306 ms P-R-T Axes : 073 062 078 degrees QTc Int : 451 ms Sinus tachycardia Otherwise normal ECG When compared with ECG of 23-MAY-2023 20:49, (unconfirmed) Vent. rate has increased BY [address] no longer elevated in Anterior leads Nonspecific T wave abnormality now evident in Lateral leads Confirmed by Jacek Rodriguez ([id number]) on 05/24/2023 11:11:35 AM Chest X-Ray Date: 08/16/23 XR chest 1V portable, XR KUB/Abdomen 1 view CLINICAL HISTORY: ingested fb, 1.5pencils, flexpen, 2sporks TECHNIQUE: 1 views of the abdomen were obtained. A single view of the chest was obtained. Comparison: Comparison is made to chest radiograph 07/08/2023 FINDINGS: A radiodensity projects over the left upper quadrant of the abdomen. The cardiomediastinal silhouette is normal. The lungs are clear. No evidence of pleural effusion or pneumothorax. The osseous structures are grossly unremarkable. The bowel gas pattern is nonobstructive. A moderate amount of stool is noted within the large bowel. IMPRESSION: Radiodensity projecting over the left upper quadrant of the abdomen represent ingested foreign body within the stomach or less likely splenic flexure.
[2023-08-17] MEDS ORDERED: fentaNYL citrate PF 100 MCG/2 ML VIAL IV PRN (12:45)
[2023-08-17] MEDS ORDERED: PROMETHAZINE HCL 6.25 MG in SODIUM CHLORIDE 0.9% 50 ML IV PRN (12:45)
[2023-08-17] MEDS ORDERED: ONDANSETRON INJ 2 MG/ML 2 ML VIAL IV PRN (12:45)
[2023-08-17] MEDS ORDERED: HYDROmorphone INJ 2 MG/ML SYR/VIAL IV PRN (12:45)
[2023-08-17] MEDS ORDERED: ATROPINE SULFATE 0.1 MG/ML 10ML SYR IV PRN (12:45)
[2023-08-17] MEDS ORDERED: ePHEDrine sulfate 50 MG/ML AMP IV PRN (12:45)
[2023-08-17] MEDS ORDERED: DexMEDEtomidine HCL IV 100 MCG/ML VIAL IV ONE (12:59)
[2023-08-17] MEDS ORDERED: MIDAZOLAM HCL 1 MG/ML 2ML VIAL ONE (12:59)
[2023-08-17] MEDS ORDERED: ROCURONIUM BROMIDE 10 MG/ML 5 ML VIAL IV ONE (13:28)
[2023-08-17] MEDS ORDERED: PROPOFOL IV EMULSION 10 MG/ML 20 ML VIAL IV ONE (13:28)
[2023-08-17] MEDS ORDERED: ONDANSETRON INJ 2 MG/ML 2 ML VIAL ONE (13:28)
[2023-08-17] MEDS ORDERED: SUCCINYLCHOLINE CHLORIDE 20 MG/ML 10 ML VIAL IV ONE (13:28)
--- NOTE | 2023-08-17 13:29 | Communication Note ---
Date of Service: August 17, 2023 Attempted to see patient for psychiatry consult but he was having EGD for foreign body removal. Will re-attempt tomorrow.
--- NOTE | 2023-08-17 13:37 | GI REPORT ---
Patient Name: Jh Rodríguez Procedure Date: 08/17/2023 12:57 PM Date of : 1990 Admit Type: Inpatient Age: 32 Gender: Male Attending MD: Osiel Hutchinson DO, Procedure: Upper GI endoscopy Providers: Osiel Hutchinson DO Referring MD: Heather Maldonado MD Indications: Foreign body in the stomach Medicines: General Anesthesia Complications: No immediate complications. Estimated Blood Loss: Estimated blood loss: none. Procedure: Pre-Anesthesia Assessment: - Prior to the procedure, a History and Physical was performed, and patient medications and allergies were reviewed. The patient's tolerance of previous anesthesia was also reviewed. The risks and benefits of the procedure and the sedation options and risks were discussed with the patient. All questions were answered, and informed consent was obtained. Prior Anticoagulants: The patient has taken no anticoagulant or antiplatelet agents. ASA Grade Assessment: E - Emergency. After reviewing the risks and benefits, the patient was deemed in satisfactory condition to undergo the procedure. After obtaining informed consent, the endoscope was passed under direct vision. Throughout the procedure, the patient's blood pressure, pulse, and oxygen saturations were monitored continuously. The Endoscope was introduced through the mouth, and advanced to the third part of duodenum. The upper GI endoscopy was accomplished without difficulty. The patient tolerated the procedure well. Findings: The esophagus was normal. A pencil in 2 pieces and a pen were found in the gastric body. The examined duodenum was normal. Impression: - Normal esophagus. - A pencil in 2 pieces and a pen were found in the stomach. - Normal examined duodenum. - No specimens collected. Recommendation: - [facility]. - Advance diet as tolerated. - Continue present medications. Osiel Hutchinson DO 08/17/2023 1:36:27 PM This report has been signed electronically. Note Initiated On: 08/17/2023 12:57 PM Number of Addenda: 0 I attest to the content of the Intraoperative Record and orders documented therein, exceptions below {[id number]}
--- NOTE | 2023-08-17 14:09 | Anesthesiology Progress Note ---
Date of Service August 17, 2023 Anesthesia Post Procedure Vital Signs Vital Signs: Temp Pulse Pulse Pulse Resp BP BP 08/17/23 14:05 63 18 99/60 L 08/17/23 13:55 63 18 109/62 08/17/23 13:48 36.3 C L 67 12 108/70 08/17/23 12:36 36.4 C L 64 18 118/79 08/17/23 12:01 36.5 C 54 L 19 107/67 08/17/23 07:16 36.4 C L 66 20 104/65 08/17/23 03:10 36.3 C L 65 18 129/82 08/17/23 00:42 08/16/23 23:15 54 L 08/16/23 23:09 36.3 C L 66 16 134/79 08/16/23 19:24 36.8 C 76 16 127/83 Pulse Ox O2 Del Method O2 Flow Rate 08/17/23 14:05 97 Oxymask 2 08/17/23 13:55 97 Oxymask 8 08/17/23 13:48 95 Oxymask 8 08/17/23 12:36 95 Room Air 08/17/23 12:01 98 Room Air 08/17/23 07:16 98 Room Air 08/17/23 03:10 99 Room Air 08/17/23 00:42 Room Air 08/16/23 23:15 08/16/23 23:09 99 Room Air 08/16/23 19:24 98 Room Air Pain Intensity Abdomen: Pain Intensity: 6 Transfer of Care Handoff Completed per policy Notes Mental Status: alert / awake / arousable and participated in evaluation Patient Amnestic to Procedure: Yes Nausea / Vomiting: adequately controlled Pain: adequately controlled Airway Patency, RR, SpO2: stable & adequate BP & HR: stable & adequate Hydration State: stable & adequate Anesthetic Complications: no major complications apparent
--- NOTE | 2023-08-17 15:00 | Hospitalist Progress Note ---
Date of Service August 17, 2023 Assessment & Plan (1) Foreign body ingestion: Plan: 32-year-old male with PMH of seizure disorder, mood disorder, chronic anemia baseline hemoglobin 12-13, past tobacco abuse, history of intentional drug overdose and breakthrough seizures, and history of foreign body ingestion and self-harm [facility] because of swallowing 2 Pencils, 1 FlexPen and two Sporks around 5:30 PM on the day of arrival per patient. And also seemed to attempt to cut his wrist by using his fingernails on the left wrist [facility] Patient stated he was seeing things and hearing voices. Patient states when he moved to current jail his psych medications were changed and they are not helping. Of note, patient was recently in the hospital admitted on July 09, 2023 with foreign body ingestion s/p EGD and 3 flex inked pens were found in stomach and were removed. At that time he also had traumatic left fifth digit phalangeal fracture and seen by orthopedics conservative management recommended. He is being managed for the following: Foreign body ingestion History of foreign body ingestions Seems to ingested 2 pencils,1 FlexPen and 2 sporks per patient. s/p EGD 08/16 - 2 pieces of pencil and a pen were found. No specimens collected. GI on board, adv diet as jose. c/w protonix and pain control. Seizure disorder: On Keppra. continue. History of mood disorder Suicidal ideation On Paxil,risperidone and Zoloft and Remeron and Depakote States current medications not helping Psych consulted, await recs. Seems Paxil dose reduced and zoloft added since last admit. Psychiatry to help with med adjustments. one on one for now Chronic anemia: Hemoglobin 13.8. We will follow labs DVT prophylaxis: SCDs for now Disposition: Telemetry Full code Admission and Anticipated Discharge Date Admission Date: August 16, 2023 Subjective Patient was seen and examined at bedside. Patient was lying in bed, on room air, NAD. Patient reports abdominal pain, denies nausea and vomiting. Patient is n.p.o. for EGD scope. Patient denies any new acute event overnight. Patient denies SI/HI today. Physical Exam Physical Exam: General- Not in acute distress. Head- atraumatic Eyes- , EOMI Neck- supple, no JVD. Lungs- clear to auscultation no wheezing or crackles. Heart- regular rhythm; no murmur, no gallop. Abdomen- normal bowel sounds, soft, diffuse tenderness, mild guarding no distension. Extremities- no pretibial edema, no erythema seen. Neuro- alert, oriented EOMI; no facial palsy; no dysarthria; moves extremities. Results & Data Results & Data Vital Signs (Past 12 Hours) Vital Signs Temp Pulse Pulse Resp BP Pulse Ox O2 Del Method 08/17/23 14:31 36.3 C L 65 19 105/70 100 Room Air 08/17/23 14:15 36.2 C L 60 16 103/64 98 Room Air 08/17/23 14:05 63 18 99/60 L 97 Oxymask 08/17/23 13:55 63 18 109/62 97 Oxymask 08/17/23 13:48 36.3 C L 67 12 108/70 95 Oxymask 08/17/23 12:36 36.4 C L 64 18 118/79 95 Room Air 08/17/23 12:01 36.5 C 54 L 19 107/67 98 Room Air 08/17/23 07:16 36.4 C L 66 20 104/65 98 Room Air 08/17/23 03:10 36.3 C L 65 18 129/82 99 Room Air O2 Flow Rate 08/17/23 14:31 08/17/23 14:15 08/17/23 14:05 2 08/17/23 13:55 8 08/17/23 13:48 8 08/17/23 12:36 08/17/23 12:01 08/17/23 07:16 08/17/23 03:10 (1) Foreign body ingestion Encounter type: initial encounter Qualified Code(s): T18.9XXA - Foreign body of alimentary tract, part unspecified, initial encounter
[2023-08-17] MEDS: MIRTAZAPINE TAB 15 MG TAB PO SCH (21:03)
[2023-08-17] MEDS: risperiDONE 1 MG TABLET PO SCH (21:03)
[2023-08-17] MEDS: SERTRALINE HCL 50 MG TABLET PO SCH (21:03)
[2023-08-17] MEDS: DIVALPROEX DELAY RELEASE 500 MG TAB PO SCH (21:04)
[2023-08-18 06:59] LABS: Hematocrit (blood only) 38.2 % (42.0-52.0); Hemoglobin 13.5 g/dl (14.0-18.0); Mean Corpuscular Hgb Conc 35.3 g/dL (32.0-36.0); Mean Corpuscular Volume 93.4 fL (80.0-100.0); Mean Platelet Volume 9.6 fL (9.4-12.4); Platelet Count 309 K/uL (130-400); RDW Coefficient of Variation 11.8 % (11.5-14.5); RDW Standard Deviation 40.5 fL (36.4-46.3); Red Blood Count 4.09 M/uL (4.70-6.10); White Blood Count 6.44 K/ul (4.8-10.8)
[2023-08-18 07:13] LABS: Anion Gap 5 (3-11); BUN Creatinine Ratio 9.5 (10-20); Blood Urea Nitrogen 6 mg/dl (6-23); Calcium 8.5 mg/dl (8.6-10.3); Carbon Dioxide 27 mmol/L (21-32); Chloride 107 mmol/L (98-107); Creatinine Clr Calc Pharmacy 158.8 ml/min; Est GFR (African American) > 150.0 ml/min; Est GFR (Non-African American) 131.3 ml/min; Glucose 93 mg/dl (70-99(Fasting)); Magnesium 1.8 mg/dl (1.7-2.4); Phosphorus 3.3 mg/dl (2.5-4.9); Potassium 4.1 mmol/L (3.5-5.1); Sodium 139 mmol/L (136-145)
[2023-08-18] MEDS: PARoxetine HCL 10 MG TAB PO SCH (11:26)
[2023-08-18] MEDS: ACETAMINOPHEN 325 MG TAB PO PRN (11:27)
--- NOTE | 2023-08-18 12:19 | Psychiatric Consultation ---
Date of Consultation August 18, 2023 Impression / Recommendations Impression Patient is an inmate at [facility] admitted for foreign body ingestion and self- harm. Diagnostically consistent with adjustment disorder and impulsive behavior and likely BPD. Guards providing 1-on-1 at bedside and can return to [facility] on suicide precautions pending further evaluation there. Currently denies SI and denies any thoughts of self-harm. Feels current psychiatric medications are working well and no reason to change at this point, patient to continue to follow with psychiatric providers via [facility]. Overall, I spent a total of 40 minutes with this case including review of chart records, review of labwork, direct evaluation of the patient at bedside, counseling the patient, discussion of the patient with the hospitalist provider, discussion with the psychiatric liason during clinical rounds and documentation in the electronic health record. (1) Foreign body ingestion: Encounter type: initial encounter Qualified Code(s): T18.9XXA - Foreign body of alimentary tract, part unspecified, initial encounter Plan -Continue current psychiatric medications as ordered Psych History Identifying Data 32 transgender woman, prefers she/her pronouns, and an inmate at [facility] admitted for foreign body ingestion and scratching his wrist in self-harm attempt. Psychiatry consulted for medication recommendations. Chief Complaint "I feel a lot better, I regret what I did". History of Present Illness Patient who goes by Rachele, tells me she ingested items and self-harmed via scratching due to feeling acutely distressed following group at [facility] discussing past relationships which brought back bad memories. States she impulsively ingested items and now regrets this. Discusses future-oriented goals of going to art school once she gets probation. Can explain recent medication changes and likes plan to taper from paxil to sertraline and likes mirtazapine, risperidone and Depakote. Denies any current self-harm thoughts nor SI. Describes hopefulness. Denies any medication side effects. Allergies Allergy/AdvReac Type Severity Reaction Status Date / Time Penicillins Allergy Intermediate Rash Verified 08/16/23 21:26 trazodone AdvReac Intermediate Anxiety Verified 08/16/23 21:26 Home Medications Medication Instructions Recorded Confirmed Type calcium polycarbophil 625 mg 1,250 mg PO DAILY 05/24/23 08/16/23 History tablet (FiberCon) levetiracetam 500 mg tablet 1,500 mg PO BID 05/24/23 08/16/23 History (Keppra) mirtazapine 15 mg tablet (Remeron) 15 mg PO HS 05/24/23 08/16/23 History divalproex 250 mg tablet,delayed 250 mg PO QAM 07/08/23 08/16/23 History release (Depakote) divalproex 500 mg tablet,delayed 500 mg PO HS 07/08/23 08/16/23 History release risperidone 1 mg tablet 1 mg PO HS 07/08/23 08/16/23 History min oil-stephenie ean-pet,w-cetyl al 1 ea topical HS 08/16/23 08/16/23 History lotion (DermaDaily lotion) paroxetine HCl 10 mg tablet (Paxil) 10 mg PO DAILY 08/16/23 08/16/23 History sertraline 50 mg tablet 50 mg PO HS 08/16/23 08/16/23 History Patient History Medical History (Updated 08/17/23 @ 09:15 by Marcelino Hanna MD) Tobacco abuse Anemia Suicidal ideation hx/o Ingestion of foreign body Seizure Encounter for pre-operative examination Surgical History (Updated 08/17/23 @ 09:16 by Marcelino Hanna MD) H/O esophagogastroduodenoscopy Social History Smoking Status: Former smoker Tobacco Type: Cigarettes Second Hand Exposure: No; Do You Dip or Chew Tobacco: No; Hx Alcohol Use: No Hx Substance Use: No Preferred Language: Tamazight Communication Ability: Effective Sheet Rocker Required: No Beliefs That Will Affect Care: None Current Living Situation: Other Current Living Situation Comment: [facility] Feels Safe at Home: Yes Safety Concerns: Feels Safe At This Time Assistive Devices: None Physical Exam Psychiatric: Orientation: alert and oriented x 3 Apperance: appropriately dressed and appropriately groomed Eye Contact: good eye contact Motor Behavior: no abnormal motor movements Speech: normal rate/rhythm/volume of speech Affect: euthymic affect Mood: no depressed mood and no anxious mood Thought Process: linear/logical thought process Thought Content: reality based without delusions Suicidal Thoughts: denies suicidal thoughts Homicidal Thoughts: denies homicidal thoughts Hallucinations: no auditory hallucinations and no visual hallucinations Cognition: recent memory grossly intact, remote memory grossly intact, attention grossly intact and language grossly intact Estimated Intelligence: consistent with education level Insight: + fair insight Judgment: + limited judgement Vital Signs (Past 24 Hours): Last Vital Signs Temp 36.9 C 08/18/23 10:53 Pulse 69 08/18/23 11:37 Resp 18 08/18/23 10:53 BP 105/69 08/18/23 10:53 Pulse Ox 97 08/18/23 10:53 O2 Del Method Room Air 08/18/23 10:53 O2 Flow Rate 2 08/17/23 14:05 Results & Data (PSY) Medications Administered Acetaminophen (Acetaminophen 325 Mg Tab) 650 mg PO Q4H PRN PRN Reason: Pain Stop: 09/17/23 11:19 Last Admin: 08/18/23 11:27 Dose: 650 mg Documented By: NOEMI Calcium Polycarbophil (Calcium Polycarbophil 625mg Tab) 1,250 mg PO DAILY AIDEN Stop: 09/16/23 08:59 Last Admin: 08/18/23 09:34 Dose: 1,250 mg Documented By: Admin: 08/17/23 09:07 Dose: 1,250 mg Documented By: JAMES Divalproex Sodium (Divalproex Delay Release 250 Mg Tabec) 250 mg PO QAM AIDEN Stop: 09/16/23 08:59 Last Admin: 08/18/23 09:34 Dose: 250 mg Documented By: Admin: 08/17/23 09:07 Dose: 250 mg Documented By: JAMES Divalproex Sodium (Divalproex Delay Release 500 Mg Tab) 500 mg PO HS AIDEN Stop: 09/16/23 20:59 Last Admin: 08/17/23 21:04 Dose: 500 mg Documented By: PINEDA Dextrose/Sodium Chloride (D5w And 1/2nss) 1,000 mls @ 65 mls/hr IV .[id number] AIDEN Stop: 09/15/23 23:09 Last Admin: 08/18/23 04:29 Dose: 125 mls/hr Documented By: Infusion: 08/17/23 23:27 Dose: Infused Documented By: Admin: 08/17/23 15:27 Dose: 125 mls/hr Documented By: Infusion: 08/17/23 15:17 Dose: Infused Documented By: Admin: 08/17/23 07:06 Dose: 125 mls/hr Documented By: Infusion: 08/17/23 07:06 Dose: Infused Documented By: Admin: 08/16/23 23:26 Dose: 125 mls/hr Documented By: PINEDA Pantoprazole Sodium 40 mg/ (Syringe) 10 mls @ 5 mls/min IV BID AIDEN Stop: 09/15/23 23:09 Last Admin: 08/18/23 09:34 Dose: 5 mls/min Documented By: Admin: 08/17/23 21:04 Dose: 5 mls/min Documented By: Admin: 08/17/23 09:07 Dose: 5 mls/min Documented By: Admin: 08/16/23 23:26 Dose: 5 mls/min Documented By: PINEDA Levetiracetam (Levetiracetam 500 Mg Tab) 1,500 mg PO BID AIDEN Stop: 09/16/23 08:59 Last Admin: 08/18/23 09:34 Dose: 1,500 mg Documented By: Admin: 08/17/23 21:04 Dose: 1,500 mg Documented By: Admin: 08/17/23 09:07 Dose: 1,500 mg Documented By: JAMES Mirtazapine (Mirtazapine Tab 15 Mg Tab) 15 mg PO HS AIDEN Stop: 09/16/23 20:59 Last Admin: 08/17/23 21:03 Dose: 15 mg Documented By: PINEDA Miscellaneous (Order Awaiting Action: Min Oil-Stephenie Ean-Pet,W-Cetyl Al [Dermadaily] Lotion) 1 each N/A QS AIDEN Stop: 09/16/23 07:59 Last Admin: 08/18/23 07:34 Dose: Not Given Documented By: Admin: 08/18/23 01:25 Dose: Not Given Documented By: Admin: 08/17/23 15:17 Dose: Not Given Documented By: Admin: 08/17/23 07:15 Dose: Not Given Documented By: JAMES Paroxetine HCl (Paroxetine Hcl 10 Mg Tab) 10 mg PO DAILY AIDEN Stop: 09/16/23 08:59 Last Admin: 08/18/23 11:26 Dose: 10 mg Documented By: NOEMI Risperidone (Risperidone 1 Mg Tablet) 1 mg PO HS AIDEN Stop: 09/16/23 20:59 Last Admin: 08/17/23 21:03 Dose: 1 mg Documented By: PINEDA Sertraline HCl (Sertraline Hcl 50 Mg Tablet) 50 mg PO HS AIDEN Stop: 09/16/23 20:59 Last Admin: 08/17/23 21:03 Dose: 50 mg Documented By: PINEDA Coding Level of Care Code 58818 IN/OBS CONSULT LVL 2,35M Diagnoses Foreign body ingestion T18.9XXA Encounter type: initial encounter
--- NOTE | 2023-08-18 16:26 | Hospitalist Progress Note ---
Date of Service August 18, 2023 Assessment & Plan (1) Foreign body ingestion: Plan: 32-year-old male with PMH of seizure disorder, mood disorder, chronic anemia baseline hemoglobin 12-13, past tobacco abuse, history of intentional drug overdose and breakthrough seizures, and history of foreign body ingestion and self-harm was brought in from [facility] 08[facility]15 because of swallowing 2 Pencils, 1 FlexPen and two Sporks around 5:30 PM on the day of arrival per patient. And also seemed to attempt to cut his wrist by using his fingernails on the left wrist which was cleaned by infirmary at [facility]. Patient stated he was seeing things and hearing voices. Patient states when he moved to current long-term his psych medications were changed and they are not helping. Of note, patient was recently in the hospital admitted on July 09, 2023 with foreign body ingestion s/p EGD and 3 flex inked pens were found in stomach and were removed. At that time he also had traumatic left fifth digit phalangeal fracture and seen by orthopedics conservative management recommended. He is being managed for the following: Foreign body ingestion History of foreign body ingestions Seems to ingested 2 pencils,1 FlexPen and 2 sporks per patient. s/p EGD 08/16 - 2 pieces of pencil and a pen were found. No specimens collected. GI on board, adv diet as jose. c/w protonix and pain control. Pt has not moved bowel, tolerating diet ok so far. Seizure disorder: On Keppra. continue. History of mood disorder Suicidal ideation On Paxil,risperidone and Zoloft and Remeron and Depakote States current medications not helping Psych evaled 08/17, appreciate recs. No change in meds at this time. Seems Paxil dose reduced and zoloft added since last admit. one on one for now Chronic anemia: Hemoglobin 13.8. We will follow labs DVT prophylaxis: SCDs for now Disposition: Telemetry Full code Admission and Anticipated Discharge Date Admission Date: August 16, 2023 Subjective Patient was seen and examined at bedside. Patient was lying in bed, on room air, NAD. Patient reports abdominal pain but improving, denies nausea and vomiting. tolerating diet ok so far. Patient denies any new acute event overnight. Patient denies SI/HI today. Physical Exam Physical Exam: General- Not in acute distress. Head- atraumatic Eyes- , EOMI Neck- supple, no JVD. Lungs- clear to auscultation no wheezing or crackles. Heart- regular rhythm; no murmur, no gallop. Abdomen- normal bowel sounds, soft, diffuse tenderness - improving, mild guarding no distension. Extremities- no pretibial edema, no erythema seen. Neuro- alert, oriented EOMI; no facial palsy; no dysarthria; moves extremities. Results & Data Results & Data Vital Signs (Past 12 Hours) Vital Signs Temp Pulse Pulse Resp BP Pulse Ox O2 Del Method 08/18/23 14:55 36.7 C 79 18 135/71 100 Room Air 08/18/23 11:37 69 08/18/23 10:53 36.9 C 79 18 105/69 97 Room Air 08/18/23 07:33 36.5 C 101 H 20 132/84 97 Room Air (1) Foreign body ingestion Encounter type: initial encounter Qualified Code(s): T18.9XXA - Foreign body of alimentary tract, part unspecified, initial encounter
[2023-08-19 07:34] LABS: Hematocrit (blood only) 41.7 % (42.0-52.0); Hemoglobin 14.7 g/dl (14.0-18.0); Mean Corpuscular Hemoglobin 33.1 pg (25.0-34.0); Mean Corpuscular Hgb Conc 35.3 g/dL (32.0-36.0); Mean Corpuscular Volume 93.9 fL (80.0-100.0); Mean Platelet Volume 9.4 fL (9.4-12.4); Platelet Count 335 K/uL (130-400); RDW Coefficient of Variation 11.8 % (11.5-14.5); RDW Standard Deviation 40.6 fL (36.4-46.3); Red Blood Count 4.44 M/uL (4.70-6.10); White Blood Count 5.54 K/ul (4.8-10.8)
[2023-08-19 07:35] LABS: BUN Creatinine Ratio 12.8 (10-20); Calcium 9.1 mg/dl (8.6-10.3); Creatinine Clr Calc Pharmacy 128.3 ml/min; Est GFR (African American) 139.4 ml/min; Est GFR (Non-African American) 120.3 ml/min; Potassium 4.4 mmol/L (3.5-5.1)
--- NOTE | 2023-08-19 09:48 | XRay Report ---
KUB CLINICAL HISTORY: Foreign body ingestion. FINDINGS: An AP, portable, supine view of the abdomen is compared to study dated 08/16/2023. There is a nonobstructed abdominal bowel gas pattern. Moderate fecal retention is seen throughout the colon. T he radiodense foreign body seen on 08/16/2023 is no longer visualized. No evidence of intraperitoneal free air is seen on this supine image. There are no abnormal abdominal calcifications. The bony struc tures appear intact. IMPRESSION: 1. The radiodense foreign body seen on 08/16/2023 is no longer visualized. 2. Moderate constipation. Electronically signed by: Marv Wren M.D. 08/19/2023 9:47 AM
[2023-08-19] MEDS: DOCUSATE SODIUM/SENNA 50/8.6MG TAB PO SCH (11:01)
[2023-08-19] MEDS: bisacodyL 10 MG SUPP PR STA ×2 (13:57→18:25)
[2023-08-19] MEDS: POLYETHYLENE (MIRALAX) 17 GM PACK PO PRN (15:06)
--- NOTE | 2023-08-19 15:41 | Hospitalist Progress Note ---
Date of Service August 19, 2023 Assessment & Plan (1) Foreign body ingestion: Plan: 32-year-old male with PMH of seizure disorder, mood disorder, chronic anemia baseline hemoglobin 12-13, past tobacco abuse, history of intentional drug overdose and breakthrough seizures, and history of foreign body ingestion and self-harm was brought in from [facility] 08/15 because of swallowing 2 Pencils, 1 FlexPen and two Sporks around 5:30 PM on the day of arrival per patient. And also seemed to attempt to cut his wrist by using his fingernails on the left wrist which was cleaned by infirmary at [facility]. Patient stated he was seeing things and hearing voices. Patient states when he moved to current [facility] his psych medications were changed and they are not helping. Of note, patient was recently in the hospital admitted on July 09, 2023 with foreign body ingestion s/p EGD and 3 flex inked pens were found in stomach and were removed. At that time he also had traumatic left fifth digit phalangeal fracture and seen by orthopedics conservative management recommended. He is being managed for the following: Foreign body ingestion History of foreign body ingestions Seems to ingested 2 pencils,1 FlexPen and 2 sporks per patient. s/p EGD 08/16 - 2 pieces of pencil and a pen were found/removed. No specimens collected. GI on board, adv diet as jose. c/w protonix and pain control. Pt has not moved bowel, tolerating diet ok so far. d/w GI d/t ongoing abd pain, will get CTAP. bowel regimen. Seizure disorder: On Keppra. continue. History of mood disorder Suicidal ideation On Paxil,risperidone and Zoloft and Remeron and Depakote States current medications not helping Psych evaled 08/17, appreciate recs. No change in meds at this time. Seems Paxil dose reduced and zoloft added since last admit. one on one for now Chronic anemia: Hemoglobin 13.8. We will follow labs DVT prophylaxis: SCDs for now Disposition: Telemetry Full code Admission and Anticipated Discharge Date Admission Date: August 16, 2023 Subjective Patient was seen and examined at bedside. Patient was lying in bed, on room air, NAD. Patient reports abdominal pain not much improved, XR KUB is not much revealing. d/w GI, will get CT AP. denies nausea and vomiting. tolerating diet ok so far. Has not moved bowel. Patient denies any new acute event overnight. Patient denies SI/HI today. Physical Exam Physical Exam: General- Not in acute distress. Head- atraumatic Eyes- , EOMI Neck- supple, no JVD. Lungs- clear to auscultation no wheezing or crackles. Heart- regular rhythm; no murmur, no gallop. Abdomen- normal bowel sounds, soft, diffuse tenderness - about the same today, mild guarding no distension. Extremities- no pretibial edema, no erythema seen. Neuro- alert, oriented EOMI; no facial palsy; no dysarthria; moves extremities. Results & Data Results & Data Vital Signs (Past 12 Hours) Vital Signs Temp Pulse Pulse Resp BP Pulse Ox O2 Del Method 08/19/23 11:09 36.4 C L 70 16 107/69 96 Room Air 08/19/23 10:48 62 08/19/23 07:48 36.8 C 68 16 119/82 95 Room Air (1) Foreign body ingestion Encounter type: initial encounter Qualified Code(s): T18.9XXA - Foreign body of alimentary tract, part unspecified, initial encounter
[2023-08-19] MEDS: OPTIRAY 320 100ml IV ONE (16:22)
--- NOTE | 2023-08-19 20:32 | CT Scan Report ---
CT abd pelvis IV con only CLINICAL HISTORY: ongong abd pain. TECHNIQUE: Helical axial images of the abdomen and pelvis were obtained and displayed. Automated dose lowering techniques and/or adjustment according to patient size were utilized for this exam. This e xam was performed with intravenous contrast. CT DOSE: 540.31 mGy.cm COMPARISON: None available at the time of this dictation. FINDINGS: Lower chest: No acute abnormality. Liver: Unremarkable. No focal lesions are seen. Gallbladder and biliary tree: No calcified gallstones. Normal caliber wall. No intra- or extrahepatic biliary ductal dilation. Pancreas: Unremarkable, no focal lesions. Spleen: Unremarkable. Adrenals: Unremarkable. Kidneys and ureters: Nonobstructive nephrolithiasis is seen. Bladder: Unremarkable. Reproductive organs: Unremarkable. Bowel: A linear metallic density is seen in the transverse colon. An additional radiodensity in the s plenic flexure is noted, uncertain if this is artifactual. The appendix is normal. Lymph nodes Retroperitoneal: Unremarkable. Pelvic: Unremarkable. Mesenteric: Unremarkable. Peritoneum: Normal. Vessels: Unremarkable. Abdominal wall: Unremarkable. Bones: Unremarkable. IMPRESSION: There is a linear metallic device in the transverse colon, of uncertain etiology. Otherwise no acute abnormalities are seen. ACT 112: Negative or not required by law. Electronically signed by: Speedy Schofield M.D. 08/19/2023 8:29 PM
[2023-08-20 07:01] LABS: Hematocrit (blood only) 39.6 % (42.0-52.0); Mean Corpuscular Hemoglobin 33.3 pg (25.0-34.0); Mean Corpuscular Hgb Conc 35.4 g/dL (32.0-36.0); Mean Corpuscular Volume 94.3 fL (80.0-100.0); Mean Platelet Volume 9.6 fL (9.4-12.4); Platelet Count 312 K/uL (130-400); RDW Coefficient of Variation 11.6 % (11.5-14.5); RDW Standard Deviation 39.8 fL (36.4-46.3); White Blood Count 6.42 K/ul (4.8-10.8)
[2023-08-20 07:09] LABS: BUN Creatinine Ratio 17.4 (10-20); Calcium 8.9 mg/dl (8.6-10.3); Est GFR (African American) 146.6 ml/min; Est GFR (Non-African American) 126.5 ml/min; Magnesium 1.9 mg/dl (1.7-2.4); Phosphorus 3.8 mg/dl (2.5-4.9); Potassium 4.3 mmol/L (3.5-5.1)
--- NOTE | 2023-08-20 11:21 | Surgery Consultation ---
Date of Consultation August 20, 2023 Assessment & Plan (1) Foreign body ingestion: FB in transverse colon will likely pass on its own if intervention required would recommend colonoscopy per GI no surgical issues will sign off History of Present Illness Attending Physician: Heather Maldonado MD History of Present Illness This is a 32YO male with seizure disorder, mood disorder, history of intentional drug overdose and breakthrough seizures, and history of foreign body ingestion and self-harm who was brought in from [facility] because of swallowing foreign bodies s/p EGD and removal of foreign bodies. He is currently having abdominal pain and a CT scan showing a retained FB in the transverse colon. No fevers or chills. Allergies Allergy/AdvReac Type Severity Reaction Status Date / Time Penicillins Allergy Intermediate Rash Verified 08/16/23 21:26 trazodone AdvReac Intermediate Anxiety Verified 08/16/23 21:26 Home Medications Medication Instructions Recorded Confirmed Type calcium polycarbophil 625 mg 1,250 mg PO DAILY 05/24/23 08/16/23 History tablet (FiberCon) levetiracetam 500 mg tablet 1,500 mg PO BID 05/24/23 08/16/23 History (Keppra) mirtazapine 15 mg tablet (Remeron) 15 mg PO HS 05/24/23 08/16/23 History divalproex 250 mg tablet,delayed 250 mg PO QAM 07/08/23 08/16/23 History release (Depakote) divalproex 500 mg tablet,delayed 500 mg PO HS 07/08/23 08/16/23 History release risperidone 1 mg tablet 1 mg PO HS 07/08/23 08/16/23 History min oil-stephenie ean-pet,w-cetyl al 1 ea topical HS 08/16/23 08/16/23 History lotion (DermaDaily lotion) paroxetine HCl 10 mg tablet (Paxil) 10 mg PO DAILY 08/16/23 08/16/23 History sertraline 50 mg tablet 50 mg PO HS 08/16/23 08/16/23 History Patient History Medical History (Updated 08/17/23 @ 09:15 by Marcelino Hanna MD) Tobacco abuse Anemia Suicidal ideation hx/o Ingestion of foreign body Seizure Encounter for pre-operative examination Surgical History (Updated 08/17/23 @ 09:16 by Marcelino Hanna MD) H/O esophagogastroduodenoscopy Social History Smoking Status: Former smoker Tobacco Type: Cigarettes Second Hand Exposure: No; Do You Dip or Chew Tobacco: No; Hx Alcohol Use: No Hx Substance Use: No Preferred Language: Greek Communication Ability: Effective Robot Programmer Required: No Beliefs That Will Affect Care: None Current Living Situation: Other Current Living Situation Comment: [facility] Feels Safe at Home: Yes Safety Concerns: Feels Safe At This Time Gender Identity: Female Assistive Devices: None Review of Systems Constitutional: no fever, no chills and no anorexia Eyes: no problem reported Ear, Nose, Mouth, Throat: no problem reported Respiratory: no cough and no dyspnea Cardiovascular: no chest pain Gastrointestinal: + abdominal pain; no nausea, no vomiting and no change in bowel habits Genitourinary: no dysuria Musculoskeletal: no problem reported Integumentary: no problem reported Neurologic: no localized weakness and no generalized weakness Psychiatric: + behavioral changes Endocrine: no problem reported Hematologic / Lymphatic: no problem reported Allergy / Immunological: no problem reported Physical Exam Constitutional: WD/WN, vitals as above Eyes: PERRL, conjunctivae normal, anicteric sclerae ENMT: external ear and nose normal, oropharynx normal Neck: trachea midline Respiratory: normal respiratory effort, lungs clear to auscultation Cardiovascular: RRR, no murmur, no edema Gastrointestinal (Abdomen): Inspection/Auscultation: abdomen normal to inspection and normal bowel sounds; abdomen not distended Percussion/Palpation: + abdomen tender (mild to moderate, distractible) and abdomen soft; no guarding, abdomen not rigid and no hernia Musculoskeletal: Head/Neck/Chest: normocephalic and head atraumatic Skin: no rashes, warm and dry Results & Data Vital Signs (Past 12 Hours) Vital Signs Temp Pulse Pulse Resp BP Pulse Ox O2 Del Method 08/20/23 10:39 36.7 C 67 18 114/70 98 Room Air 08/20/23 07:01 36.7 C 83 18 119/62 96 Room Air 08/20/23 03:02 36.7 C 82 18 94/63 L 96 Room Air 08/19/23 23:[address] abd pelvis IV con only CLINICAL HISTORY: ongong abd pain. TECHNIQUE: Helical axial images of the abdomen and pelvis were obtained and displayed. Automated dose lowering techniques and/or adjustment according to patient size were utilized for this exam. This exam was performed with intravenous contrast. CT DOSE: 540.31 mGy.cm COMPARISON: None available at the time of this dictation. FINDINGS: Lower chest: No acute abnormality. Liver: Unremarkable. No focal lesions are seen. Gallbladder and biliary tree: No calcified gallstones. Normal caliber wall. No intra- or extrahepatic biliary ductal dilation. Pancreas: Unremarkable, no focal lesions. Spleen: Unremarkable. Adrenals: Unremarkable. Kidneys and ureters: Nonobstructive nephrolithiasis is seen. Bladder: Unremarkable. Reproductive organs: Unremarkable. Bowel: A linear metallic density is seen in the transverse colon. An additional radiodensity in the splenic flexure is noted, uncertain if this is artifactual. The appendix is normal. Lymph nodes Retroperitoneal: Unremarkable. Pelvic: Unremarkable. Mesenteric: Unremarkable. Peritoneum: Normal. Vessels: Unremarkable. Abdominal wall: Unremarkable. Bones: Unremarkable. IMPRESSION: There is a linear metallic device in the transverse colon, of uncertain etiology. Otherwise no acute abnormalities are seen. (1) Foreign body ingestion Encounter type: initial encounter Qualified Code(s): T18.9XXA - Foreign body of alimentary tract, part unspecified, initial encounter
--- NOTE | 2023-08-20 13:21 | Communication Note ---
Date of Service: August 20, 2023 was notified today of patient having abdominal pains, imaging shows foreign body in transverse colon. spoke with patient he has some lower abdominal pains, has not had bm in 4 days. some of the foreing bodies he ingested were removed on egd, some had passed into his small bowel. recs: --golytely 2L to help move bowels and expel foreign bodies which should pass as it's in the transverse colon -can give another 2L golytely if no bm -supportive care Fracisco Irvin MD Gastroenterology
[2023-08-20] MEDS: LAVAGE SOLUTION 4000ML PO ONE (15:07)
--- NOTE | 2023-08-20 16:47 | Hospitalist Progress Note ---
Date of Service August 20, 2023 Assessment & Plan (1) Foreign body ingestion: Plan: 32-year-old male with PMH of seizure disorder, mood disorder, chronic anemia baseline hemoglobin 12-13, past tobacco abuse, history of intentional drug overdose and breakthrough seizures, and history of foreign body ingestion and self-harm [facility] because of swallowing 2 Pencils, 1 FlexPen and two Sporks around 5:30 PM on the day of arrival per patient. And also seemed to attempt to cut his wrist by using his fingernails on the left wrist which was cleaned by [facility]. Patient stated he was seeing things and hearing voices. Patient states when he moved to [facility] his psych medications were changed and they are not helping. Of note, patient was recently in the hospital admitted on July 09, 2023 with foreign body ingestion s/p EGD and 3 flex inked pens were found in stomach and were removed. At that time he also had traumatic left fifth digit phalangeal fracture and seen by orthopedics conservative management recommended. He is being managed for the following: Foreign body ingestion History of foreign body ingestions Seems to ingested 2 pencils,1 FlexPen and 2 sporks per patient. s/p EGD 08/16 - 2 pieces of pencil and a pen were found/removed. No specimens collected. GI on board, adv diet as jose. Golytely to flush FB from T colon. c/w protonix and pain control. Pt has not moved bowel, tolerating diet ok so far. Gen Sx evaled, no Sx intervention Wait for pt to move BM, aggressive bowel regimen. Seizure disorder: On Keppra. continue. History of mood disorder Suicidal ideation On Paxil,risperidone and Zoloft and Remeron and Depakote States current medications not helping Psych evaled 08/17, appreciate recs. No change in meds at this time. Seems Paxil dose reduced and zoloft added since last admit. one on one for now Chronic anemia: Hemoglobin 13.8. We will follow labs DVT prophylaxis: Hep Sc. Disposition: Telemetry Full code Admission and Anticipated Discharge Date Admission Date: August 16, 2023 Subjective Patient was seen and examined at bedside. Patient was lying in bed, on room air, NAD. Patient reports abdominal pain not much improved, CT AP w/ metallic foregin body in T colon. D/w Gen sx and GI. No Sx intervention. Golytley 2L to flush foreign body. ordered. denies nausea and vomiting. tolerating diet ok so far. Has not moved bowel. Patient denies any new acute event overnight. Patient denies SI/HI today. Physical Exam Physical Exam: General- Not in acute distress. Head- atraumatic Eyes- , EOMI Neck- supple, no JVD. Lungs- clear to auscultation no wheezing or crackles. Heart- regular rhythm; no murmur, no gallop. Abdomen- normal bowel sounds, soft, diffuse tenderness - about the same today, mild guarding no distension. Extremities- no pretibial edema, no erythema seen. Neuro- alert, oriented EOMI; no facial palsy; no dysarthria; moves extremities. Results & Data Results & Data Vital Signs (Past 12 Hours) Vital Signs Temp Pulse Resp BP Pulse Ox O2 Del Method 08/20/23 15:16 36.4 C L 69 18 116/70 97 Room Air 08/20/23 10:39 36.7 C 67 18 114/70 98 Room Air 08/20/23 07:01 36.7 C 83 18 119/62 96 Room Air (1) Foreign body ingestion Encounter type: initial encounter Qualified Code(s): T18.9XXA - Foreign body of alimentary tract, part unspecified, initial encounter
[2023-08-20] MEDS: HEPARIN SOD 5,000 UNIT/0.5 ML VIAL SQ SCH (20:42)
[2023-08-21 07:15] VITALS: BP 109/63; RESP 18; TEMP 97.7; O2SAT 99
[2023-08-21 07:32] LABS: Hemoglobin 14.5 g/dl (14.0-18.0); Mean Corpuscular Hemoglobin 33.4 pg (25.0-34.0); Mean Corpuscular Hgb Conc 35.4 g/dL (32.0-36.0); Mean Corpuscular Volume 94.5 fL (80.0-100.0); Mean Platelet Volume 9.5 fL (9.4-12.4); Platelet Count 314 K/uL (130-400); RDW Coefficient of Variation 11.6 % (11.5-14.5); RDW Standard Deviation 40.3 fL (36.4-46.3); Red Blood Count 4.34 M/uL (4.70-6.10); White Blood Count 4.92 K/ul (4.8-10.8)
[2023-08-21 07:52] LABS: BUN Creatinine Ratio 17.4 (10-20); Calcium 9.5 mg/dl (8.6-10.3); Est GFR (African American) 146.6 ml/min; Est GFR (Non-African American) 126.5 ml/min
--- NOTE | 2023-08-21 12:39 | Discharge Summary ---
Date of Service August 21, 2023 Admission HPI Per Admitting Provider 32-year-old male with past medical history significant for seizure disorder, mood disorder, chronic anemia baseline hemoglobin 12-13, past tobacco abuse, history of intentional drug overdose and breakthrough seizures, and history of foreign body ingestion and self-harm was brought in [facility] because of swallowing 1.5 Pencils, FlexPen and two Sporks around 5:30 PM today. And also seemed to attempt to cut his wrist by using his fingernails on the left wrist which was cleaned by [facility]. Patient states he is seeing things and hearing voices. He was trying to hurt himself. Currently has no thoughts to hurt himself. Patient states when he moved to current [facility] his psych medications were changed and they are not helping. Complains of some left-sided headache. And also having severe abdominal pain. Denies any nausea. No sore throat. States no difficulty swallowing. No runny nose or sore throat. No cough. No fevers. No chest pain or shortness of breath. Currently no nausea. Normal bowel and bladder movements. Denies blood in stools. Patient was recently in the hospital admitted on July 09, 2023 with foreign body ingestion s/p EGD and 3 flex inked pens were found in stomach and were removed. At that time he also had traumatic left fifth digit phalangeal fracture and seen by orthopedics conservative management recommended. Currently hemodynamics are stable. Past medical history. As mentioned above. Past surgical history. EGD. Social history. Past tobacco use. Occasional alcohol intake. Family history. Heart disease, diabetes Admission Exam Per Admitting Provider General- Not in acute distress. Head- atraumatic Eyes- , EOMI Neck- supple, no JVD. Lungs- clear to auscultation no wheezing or crackles. Heart- regular rhythm; no murmur, no gallop. Abdomen- normal bowel sounds, soft, diffuse tenderness, mild guarding no distension. Extremities- no pretibial edema, no erythema seen. Neuro- alert, oriented EOMI; no facial palsy; no dysarthria; moves extremities. Principal Diagnosis foreign body ingestion History of foreign body ingestions Seizure disorder, history of Discharge Exam General- Not in acute distress. Head- atraumatic Eyes- , EOMI Neck- supple, no JVD. Lungs- clear to auscultation no wheezing or crackles. Heart- regular rhythm; no murmur, no gallop. Abdomen- normal bowel sounds, soft, non tender, mild guarding no distension. Extremities- no pretibial edema, no erythema seen. Neuro- alert, oriented EOMI; no facial palsy; no dysarthria; moves extremities. Discharge Data Allergies Allergy/AdvReac Type Severity Reaction Status Date / Time Penicillins Allergy Intermediate Rash Verified 08/16/23 21:26 trazodone AdvReac Intermediate Anxiety Verified 08/16/23 21:26 Consultations 08/16/23 20:54 ED Decision to Admit Stat 08/17/23 08:00 Consult Gastroenterology Routine 08/20/23 07:28 Consult General Surgery Routine Procedures Performed Operation Date: 08/17/23 12:00 Actual Procedures p EGD Foreign Body Removal - Osiel Mcmanus Case, DO Ordered Studies 08/19/23 15:41 CT Abd and Pelvis [CT abd pelvis IV con only] Routine Hospital Course (1) Foreign body ingestion: 32-year-old male with PMH of seizure disorder, mood disorder, chronic anemia baseline hemoglobin 12-13, past tobacco abuse, history of intentional drug overdose and breakthrough seizures, and history of foreign body ingestion and self-harm was [facility] because of swallowing 2 Pencils, 1 FlexPen and two Sporks around 5:30 PM on the day of arrival per patient. And also seemed to attempt to cut his wrist by using his fingernails on the left wrist which was [facility] by [facility]. Patient stated he was seeing things and hearing voices. Patient states when he moved to current [facility] his psych medications were changed and they are not helping. Of note, patient was recently in the hospital admitted on July 09, 2023 with foreign body ingestion s/p EGD and 3 flex inked pens were found in stomach and were removed. At that time he also had traumatic left fifth digit phalangeal fracture and seen by orthopedics conservative management recommended. He was managed for the following: Foreign body ingestion History of foreign body ingestions Seems to ingested 2 pencils,1 FlexPen and 2 sporks per patient. s/p EGD 08/16 - 2 pieces of pencil and a pen were found/removed. No specimens collected. GI on board, adv diet as jose. Golytely to flush FB from T colon 08/19 patient mobile, not sure about foreign body, reports resolution of abdominal pain. Patient is tolerating diet, discussed with GI, okay to DC from their point of view. Patient advised to get CT scan of abdomen pelvis in a week time Or with worsening abdominal pain to document the status of foreign body. Seizure disorder: On Keppra. continue. History of mood disorder Suicidal ideation On Paxil,risperidone and Zoloft and Remeron and Depakote States current medications not helping Psych evaled 08/17, appreciate recs. No change in meds at this time. Seems Paxil dose reduced and zoloft added since last admit. Chronic anemia: Hemoglobin 13.8. We will follow labs DVT prophylaxis: Hep Sc. Disposition: Telemetry Full code Patient's care was signed out to [facility] at [facility]. He is being discharged with following instructions at the point of discharge: Follow-up with your primary care physician within a week time and likely you will need labs CBC/CMP/magnesium/phosphorus. Continue bowel regimen. Continue diet as tolerated. If you have worsening abdominal pain or at 1 week jana, you will need repeat CT scan of the abdomen pelvis with IV contrast to document foreign body status. Take your medications as prescribed. Please make sure that you are able to get your medications today by calling your pharmacy before you leave the hospital so that your treatment continuity is not broken. Home Health Attestation I certify that this patient is under my care and that I, or a physicians assistant film editor working with me, had a face to-face encounter that meets the home health [id number] encounter requirements with this patient. The encounter with the patient was in whole, or in part, for the following medical condition, which is the primary reason for home health care (list medical condition): I certify that, based on my findings, the following services are medically necessary home health services: My clinical findings support the need for the above services because: Further, I certify that my clinical findings support that this patient is homebound (i.e. absences from home require considerable and taxing effort and a re for medical reasons or [facility] or infrequently or of short duration when for other reasons) because: Certification for Home Health Services: Based on the above findings, I certify that this patient is confined to the home and needs intermittent intermediate care, physical therapy and/or speech therapy or continues to need occupational therapy. The patient is under my care, and I have initiated the establishment of the plan of care. This patient will be followed by a physician who will periodically review the plan of care. Total Time Total Time Spent Total Time Spent (In Minutes): 45 Discharge Plan Discharge Items [facility] Reason For Visit: FOREIGN BODY INGESTION Discharge Diagnosis: foreign body ingestion History of foreign body ingestions Seizure disorder, history of Activity: Resume your previous activity Non-emergency contact: Primary Care Provider Call non-emergency contact if: you have any medication questions Follow-up/Referrals: Miguelito PACE [Primary Care Provider] - Diet: Regular Addtl Attending Provider Instructions: Follow-up with your primary care physician within a week time and likely you will need labs CBC/CMP/magnesium/phosphorus. Continue bowel regimen. Continue diet as tolerated. If you have worsening abdominal pain or at 1 week jana, you will need repeat CT scan of the abdomen pelvis with IV contrast to document foreign body status. Take your medications as prescribed. Please make sure that you are able to get your medications today by calling your pharmacy before you leave the hospital so that your treatment continuity is not broken. Pending Studies at Discharge: No Stand-Alone Forms: My [facility] Skilled Items Patient informed of condition?: Yes Discharge Level of Care: Other Communicable Disease: No Discharge Prognosis: Stable Lines: None Urinary Catheter: No Medications and DC Order Prescriptions: New sennosides-docusate sodium [Senokot-S] 8.6-50 mg Tablet 1 tab PO QAM 7 Days Qty: 7 0RF polyethylene glycol 3350 [Miralax] 17 gram Powder In Packet 17 g PO DAILY PRN (Reason: laxative effect) 7 Days Qty: 7 0RF Continued levetiracetam [Keppra] 500 mg Tablet 1,500 mg PO BID FiberCon 625 mg Tablet 1,250 mg PO DAILY mirtazapine [Remeron] 15 mg Tablet 15 mg PO HS divalproex [Depakote] 250 mg tablet,delayed release (DR/EC) 250 mg PO QAM divalproex 500 mg Tablet,Delayed Release (Dr/Ec) 500 mg PO HS risperidone 1 mg Tablet 1 mg PO HS paroxetine HCl [Paxil] 10 mg Tablet 10 mg PO DAILY sertraline 50 mg Tablet 50 mg PO HS Rx Instructions: START DATE 08/20/23. DermaDaily Lotion 1 ea TOPICAL HS Rx Instructions: ADMINISTER IN PAPER CUP. Discharge Orders: Discharge Order (Routine); Ordered 08/21/23 Ordered By: Heather Maldonado Admission Data Admit Date/Time: 08/16/23 21:23 Attending Provider: Heather Maldonado Admit Provider: Ez Saravia Primary Care Provider: Miguelito PACE Other Providers: Ez Saravia; Olga Fajardo; Osiel Hutchinson; Dena Alvarez; Rossy Jorge; Snow Gonzales; Zaira Garcia; Kaylene Jessica; Fracisco Irvin; Ruben Coronado; Theodore Quevedo; Gia Pollard; Thuy Holder; Milagros Mcwilliams; Melia Doll; Milady Oro; Oumou Frost; Anand Reyes; Kurt Walden; Moustapha Keating; Isabel Stroud; Shan Parish Jr; Clay Brian
[2023-08-21 19:58] VITALS: PULSE 67
== END 2023-08-21 18:55 | DRG 395 ==
LOC: ED 18:57 → 2S 21:23 → SUATTDRO 21:23 → INTOOBSV 21:23 → 2S 22:17

== ENCOUNTER 2023-12-20 18:20 | Observation (INO) ==
[2023-12-20 19:16] LABS: Basophils # (auto) 0.04 K/uL (0.00-0.20); Basophils % (auto) 0.3 %; Eosinophils # (auto) 0.06 K/uL (0.00-0.50); Eosinophils % (auto) 0.5 %; Hematocrit (blood only) 40.2 % (42.0-52.0); Hemoglobin 14.5 g/dl (14.0-18.0); Immature Granulocytes # (auto) 0.05 K/uL (0.01-0.20); Immature Granulocytes % (auto) 0.4 %; Lymphocytes # (auto) 1.99 K/uL (1.20-3.40); Lymphocytes % (auto) 15.9 %; Mean Corpuscular Hemoglobin 32.4 pg (25.0-34.0); Mean Corpuscular Hgb Conc 36.1 g/dL (32.0-36.0); Mean Corpuscular Volume 89.9 fL (80.0-100.0); Mean Platelet Volume 9.3 fL (9.4-12.4); Monocytes # (auto) 0.59 K/uL (0.11-0.59); Monocytes % (auto) 4.7 %; Neutrophils % (auto) 78.2 %; Platelet Count 399 K/uL (130-400); RDW Coefficient of Variation 11.7 % (11.5-14.5); RDW Standard Deviation 38.5 fL (36.4-46.3); Red Blood Count 4.47 M/uL (4.70-6.10); White Blood Count 12.53 K/ul (4.8-10.8)
[2023-12-20 19:33] LABS: Alanine Aminotransferase 11 U/L (7-52); Albumin Globulin Ratio 2.4 (0.9-2); Alkaline Phosphatase 59 U/L (34-104); Anion Gap 11 (3-11); Aspartate Aminotransferase 15 U/L (13-39); BUN Creatinine Ratio 16.5 (10-20); Bilirubin,Total 0.5 mg/dl (0.2-1.0); Blood Urea Nitrogen 13 mg/dl (6-23); Calcium 9.9 mg/dl (8.6-10.3); Carbon Dioxide 23 mmol/L (21-32); Chloride 103 mmol/L (98-107); Est GFR (African American) 138.7 ml/min; Est GFR (Non-African American) 119.7 ml/min; Globulin 2.1 gm/dl (2.5-4.0); Glucose 100 mg/dl (70-99(Fasting)); Potassium 3.7 mmol/L (3.5-5.1); Sodium 137 mmol/L (136-145); Total Protein 7.1 gm/dl (6.0-8.3)
--- NOTE | 2023-12-20 23:52 | CT Scan Report ---
Exam(s): CT CHEST Without Contrast EXAM: CT Chest Without Intravenous Contrast CLINICAL HISTORY: Reason for exam: vomiting, FB ingestion. TECHNIQUE: Axial computed tomography images of the chest without intravenous contrast. CTDI is 8.38 mGy and DLP is 593.43 mGy-cm. Automated exposure control was utilized for the study. A dose lowering technique was utilized adhering to the principles of ALARA. COMPARISON: No relevant prior studies available. FINDINGS: Lungs: Unremarkable. No mass. No consolidation. Pleural space: Unremarkable. No pneumothorax. No significant effusion. Heart: Unremarkable. No cardiomegaly. No significant pericardial effusion. No significant coronary artery calcifications. Bones/joints: Unremarkable. No acute fracture. No dislocation. Soft tissues: Unremarkable. Vasculature: Unremarkable. No thoracic aortic aneurysm. Lymph nodes: Unremarkable. No enlarged lymph nodes. Stomach and bowel: Metallic density in the stomach, consistent with ingested foreign body. This measures approximately 4.3 x 0.9 cm. IMPRESSION: Metallic density in the stomach, consistent with ingested foreign body. This measures approximately 4.3 x 0.9 cm. Electronically signed by: Gonzales Hwang MD 12/20/23 23:51 PM
--- NOTE | 2023-12-21 | CT Scan Report ---
Exam(s): CT ABDOMEN + PELVIS Without Contrast EXAM: CT Abdomen and Pelvis Without Intravenous Contrast CLINICAL HISTORY: Reason for exam: FB ingestion, vomiting. TECHNIQUE: Axial computed tomography images of the abdomen and pelvis without intravenous contrast. CTDI is 9 mGy and DLP is 593 mGy-cm. Automated exposure control was utilized for the study. A dose lowering technique was utilized adhering to the principles of ALARA. COMPARISON: No relevant prior studies available. FINDINGS: Lung bases: Unremarkable. No mass. No consolidation. ABDOMEN: Liver: Unremarkable. Gallbladder and bile ducts: Unremarkable. No calcified stones. No ductal dilation. Pancreas: Unremarkable. No ductal dilation. Spleen: Unremarkable. No splenomegaly. Adrenals: Unremarkable. No mass. Kidneys and ureters: Unremarkable. No obstructing stones. No hydronephrosis. Stomach and bowel: Metallic foreign body the stomach, measures approximately 4.0 x 0.9 cm. Additional foreign body with similar size measures 4.0 x 0.9 cm located within small bowel adjacent to the LEFT aorta. These may represent batteries. Refer to the facilities maintenance manager image. Mild fecal retention, correlate for constipation. Two thin linear metallic densities in the stomach, both measuring approximately 8 mm. No obstruction. No mucosal thickening. PELVIS: Appendix: No findings to suggest acute appendicitis. Bladder: Unremarkable. No stones. Reproductive: Unremarkable as visualized. ABDOMEN and PELVIS: Intraperitoneal space: Unremarkable. No free air. No significant fluid collection. Bones/joints: No acute fracture. No dislocation. Soft tissues: Unremarkable. Vasculature: Unremarkable. No abdominal aortic aneurysm. Lymph nodes: Unremarkable. No enlarged lymph nodes. IMPRESSION: 4 foreign bodies: 1. Metallic foreign body the stomach, measures approximately 4.0 x 0.9 cm. Additional foreign body with similar size measures 4.0 x 0.9 cm located within small bowel adjacent to the LEFT aorta. These may represent batteries. 2. Two thin linear metallic densities in the stomach, both measuring approximately 8 mm. Refer to the facilities maintenance manager image. Electronically signed by: Gonzales Hwang MD 12/20/23 23:59 PM
--- NOTE | 2023-12-21 00:22 | Emergency Department Note ---
Impression & Plan Foreign body ingestion, Vomiting, Abrasion of left wrist, Suicidal ideation ED Provider Note NAME: SHLOMO [id number] MUMTAZ AGE: 32 SEX: Male INFORMANT: Patient ED PROVIDER(S): Carl Laguna MD CHIEF COMPLAINT: Foreign body ingestion PLAN: Disposition: Admitted Outpatient prescription management: none Referral: None MEDICAL DECISION MAKING: Patient presented because of foreign body ingestion. IV was established. Blood was obtained. He has slight leukocytosis. He had some mild abdominal discomfort. Due to his symptoms patient had x-ray imaging performed. Could not see all of the reported ingestion of foreign bodies and due to his complaints CT imaging was ordered. Patient was found to have a battery like density in the stomach and 1 in the small bowel. There is no sign of perforation or obstruction. There was also 2 small linear densities within the stomach and these would be consistent with the pens. Guards noted that the patient likely got to small flex pens that are about 4 inches in length. Consultation was made with Dr. Parish of gastroenterology. Discussed the case and CT. He recommended admission to internal medicine and GI will consult in the morning. He did ask for the hospitalist to get a KUB in the morning. No indication for emergent endoscopy per GI. Consultation was made with the [facility] hospitalist service, Dr. Saravia. Patient was evaluated in the ER and admitted for further management Care/management discussed with: logistics center manager Level of care consideration(s): After review of the information above and other included data, I feel the patient requires escalation of care to admission Triage Nursing notes: reviewed and agree them. Vital Signs: reviewed and remarkable for no significant abnormalities Additional History obtained from: none Chronic Medical/Social Conditions affecting care: Seizure disorder Prior/ Outside/ External records reviewed: none Differential Diagnosis: Etiologies such as foreign body ingestion, gastroenteritis, food borne illness, infections, appendicitis, diverticulitis, inflammatory bowel disease, GI bleed, biliary pathology, as well as others were entertained. Diagnostics, independently interpreted by me: ECG: none Cardiac Monitoring: Cardiac monitoring ordered by me: The patient was placed on continuous cardiac monitoring and observed. It revealed a normal sinus rhythm at 68 beats per minute without ectopy or evidence of dysrhythmia. Medical decision rules: none Imaging studies: Chest imaging reveals possible linear foreign body within the stomach. Unable to see reported [address] of the imaging of the abdomen and pelvis as well as chest reveal presence of a cylindrical like foreign body in the stomach as well as in the small bowel. No sign of obstruction or perforation. 2 linear densities within the stomach. I refer you to the EMR for further details. HPI: 32 year old Male arrives for evaluation of foreign body ingestion. Patient reportedly swallowed 2 AA batteries and 2 small for flexi pens this evening about 2 hours ago. Patient has not vomited. He had some abdominal pain as well. Patient has a history of mental health issues and had suicidal thoughts. He is in the behavioral health unit of the [facility]. Prior to the ingestion patient had no vomiting or GI symptoms. Patient also notes that he did scratch at his left wrist with his thumb. He has a history of cutting. There was some bleeding. Patient rates his abdominal discomfort as a 9 out of 10. Pt denies LOC, headache, fevers, chills, diaphoresis, visual changes, neck pain, chest pain, breathing difficulties, back pain, melena, hematochezia, urinary symptoms, numbness, weakness, lymphadenopathy, rash, or other complaints. PAST MEDICAL HISTORY: See Below, suicidality, seizures PAST SURGICAL HISTORY: See Below, SOCIAL HISTORY: See Below, incarcerated HOME MEDICATIONS: See Below ALLERGIES: See Below VITALS: See Below PHYSICAL EXAMINATION: GENERAL: Awake, alert, uncomfortable-appearing, in no distress HENT: Normocephalic, atraumatic. Oropharynx unremarkable. EYES: Normal conjunctiva. Sclera non-icteric. PERRLA. NECK: Inspection normal. Non-tender. Supple. No nuchal rigidity. FROM. No masses. RESPIRATORY: Clear to auscultation. No wheezes. No rales. Normal respiratory effort. CARDIAC: Normal rate. Normal rhythm. Extremities warm and well perfused. Pulses equal. No JVD. GI: Soft, non-distended. Epigastric tenderness to palpation. No rebound or guarding. No masses. RECTAL: Deferred. MUSCULOSKELETAL: Atraumatic except for deep linear abrasion on the left wrist that is not actively bleeding. Chest examination reveals no tenderness. The back is symmetrical on inspection without obvious abnormality. There is no CVA tenderness to palpation. No joint edema. LOWER EXTREMITIES: Calves are equal size bilaterally and non-tender. No edema. No discoloration. NEURO: Normal sensorium. No sensory or motor deficits noted. SKIN: No rash or jaundice noted. PSYCH: Positive SI PROCEDURES: none CRITICAL CARE: none OBSERVATION NOTE: none Past Med/Surg History Problem List (Updated 12/21/23 @ 00:21 by Carl Laguna MD) Suicidal ideation (Acute) Abrasion of left wrist (Acute) Vomiting (Acute) Closed fracture of finger, phalanx, distal (Acute) Closed head injury (Acute) Foreign body ingestion (Acute) Traumatic hematoma of forehead (Acute) Status epilepticus (Acute) Breakthrough seizure Medical History Tobacco abuse Anemia Suicidal ideation hx/o Ingestion of foreign body Seizure Encounter for pre-operative examination Surgical History H/O esophagogastroduodenoscopy Social History Smoking Status: Former smoker Tobacco Type: Cigarettes Second Hand Exposure: No; Do You Dip or Chew Tobacco: No; Hx Alcohol Use: No Hx Substance Use: No Preferred Language: Dominican Communication Ability: Effective Lookback Coordinator Required: No Beliefs That Will Affect Care: None Current Living Situation: Other Current Living Situation Comment: [facility] Feels Safe at Home: Yes Gender Identity: Female Assistive Devices: None Allergies Allergies Allergy/AdvReac Type Severity Reaction Status Date / Time Penicillins Allergy Intermediate Rash Verified 08/28/23 18:16 trazodone AdvReac Intermediate Anxiety Verified 08/28/23 18:16 Home Meds Home Medications Medication Instructions Recorded Confirmed levetiracetam 500 mg tablet 1,500 mg PO BID 05/24/23 08/28/23 (Keppra) mirtazapine 15 mg tablet (Remeron) 15 mg PO HS 05/24/23 08/28/23 divalproex 250 mg tablet,delayed 250 mg PO QAM 07/08/23 08/28/23 release (Depakote) divalproex 500 mg tablet,delayed 500 mg PO HS 07/08/23 08/28/23 release risperidone 1 mg tablet 1 mg PO HS 07/08/23 08/28/23 min oil-stephenie ean-pet,w-cetyl al 1 ea topical HS 08/16/23 08/28/23 lotion (DermaDaily lotion) sertraline 50 mg tablet 50 mg PO HS 08/16/23 08/28/23 Results & Data (ED) Vital Signs Vital Signs - 24 hr 12/20/23 18:31 12/20/23 21:50 12/20/23 23:00 Temperature 36.8 C Temperature Source Oral Pulse Rate 85 Pulse Rate [Right Finger] 74 83 Pulse Strength [Right Finger] Normal Respiratory Rate 12 18 22 Respiratory Effort / Characteristics Non-Labored Non-Labored Spontaneous Non-Labored Respiratory Depth Normal Normal Normal Respiratory Pattern Regular Blood Pressure 109/78 Blood Pressure [Right Arm] 140/78 140/86 Blood Pressure Mean 88 Blood Pressure Mean [Right Arm] 98 104 Blood Pressure Position [Right Arm] Lying Pulse Oximetry 98 99 98 Oxygen Delivery Method Room Air Room Air Room Air Sepsis Recent Fever Within 48 Hours No Sepsis New/Unexplained Change in Mental Status N/A Sepsis Action Taken by Nursing No Action Required 12/20/23 23:46 Temperature Temperature Source Pulse Rate 68 Pulse Rate [Right Finger] Pulse Strength [Right Finger] Respiratory Rate Respiratory Effort / Characteristics Respiratory Depth Respiratory Pattern Blood Pressure Blood Pressure [Right Arm] Blood Pressure Mean Blood Pressure Mean [Right Arm] Blood Pressure Position [Right Arm] Pulse Oximetry Oxygen Delivery Method Sepsis Recent Fever Within 48 Hours Sepsis New/Unexplained Change in Mental Status Sepsis Action Taken by Nursing Laboratory Data 12/20/23 18:37 12/20/23 18:37 Lab Results 12/20/23 Range/Units 18:37 WBC 12.53 H (4.8-10.8) K/ul RBC 4.47 L (4.70-6.10) M/uL Hgb 14.5 (14.0-18.0) g/dl Hct 40.2 L (42.0-52.0) % MCV 89.9 (80.0-100.0) fL MCH 32.4 (25.0-34.0) pg MCHC 36.1 H (32.0-36.0) g/dL RDW Std Deviation 38.5 (36.4-46.3) fL RDW Coeff of James 11.7 (11.5-14.5) % Plt Count 399 (130-400) K/uL MPV 9.3 L (9.4-12.4) fL Immature Gran % (Auto) 0.4 % Neut % (Auto) 78.2 % Lymph % (Auto) 15.9 % Lyman % (Auto) 4.7 % Eos % (Auto) 0.5 % Baso % (Auto) 0.3 % Neut # (Auto) 9.80 H (1.40-6.50) K/uL Lymph # (Auto) 1.99 (1.20-3.40) K/uL Lyman # (Auto) 0.59 (0.11-0.59) K/uL Eos # (Auto) 0.06 (0.00-0.50) K/uL Baso # (Auto) 0.04 (0.00-0.20) K/uL Immature Gran # (Auto) 0.05 (0.01-0.20) K/uL Sodium 137 (136-145) mmol/L Potassium 3.7 (3.5-5.1) mmol/L Chloride 103 (98-107) mmol/L Carbon Dioxide 23 (21-32) mmol/L Anion Gap 11 (3-11) BUN 13 (6-23) mg/dl Creatinine 0.79 (0.6-1.4) mg/dl Est Cr Clr Drug Dosing Not Reportable Est GFR ( Amer) 138.7 ml/min Est GFR (Non-Af Amer) 119.7 ml/min BUN/Creatinine Ratio 16.5 (10-20) Glucose 100 H (70-99(Fasting)) mg/dl Calcium 9.9 (8.6-10.3) mg/dl Total Bilirubin 0.5 (0.2-1.0) mg/dl AST 15 (13-39) U/L ALT 11 (7-52) U/L Alkaline Phosphatase 59 (34-104) U/L Total Protein 7.1 (6.0-8.3) gm/dl Albumin 5.0 (3.4-5.0) gm/dl Globulin 2.1 L (2.5-4.0) gm/dl Albumin/Globulin Ratio 2.4 H (0.9-2) Imaging Data Radiologist's Impression: Abdomen/Pelvis CT 12/20/23 21:45 Exam(s): CT ABDOMEN + PELVIS Without Contrast EXAM: CT Abdomen and Pelvis Without Intravenous Contrast CLINICAL HISTORY: Reason for exam: FB ingestion, vomiting. TECHNIQUE: Axial computed tomography images of the abdomen and pelvis without intravenous contrast. CTDI is 9 mGy and DLP is 593 mGy-cm. Automated exposure control was utilized for the study. A dose lowering technique was utilized adhering to the principles of ALARA. COMPARISON: No relevant prior studies available. FINDINGS: Lung bases: Unremarkable. No mass. No consolidation. ABDOMEN: Liver: Unremarkable. Gallbladder and bile ducts: Unremarkable. No calcified stones. No ductal dilation. Pancreas: Unremarkable. No ductal dilation. Spleen: Unremarkable. No splenomegaly. Adrenals: Unremarkable. No mass. Kidneys and ureters: Unremarkable. No obstructing stones. No hydronephrosis. Stomach and bowel: Metallic foreign body the stomach, measures approximately 4.0 x 0.9 cm. Additional foreign body with similar size measures 4.0 x 0.9 cm located within small bowel adjacent to the LEFT aorta. These may represent batteries. Refer to the serology technician image. Mild fecal retention, correlate for constipation. Two thin linear metallic densities in the stomach, both measuring approximately 8 mm. No obstruction. No mucosal thickening. PELVIS: Appendix: No findings to suggest acute appendicitis. Bladder: Unremarkable. No stones. Reproductive: Unremarkable as visualized. ABDOMEN and PELVIS: Intraperitoneal space: Unremarkable. No free air. No significant fluid collection. Bones/joints: No acute fracture. No dislocation. Soft tissues: Unremarkable. Vasculature: Unremarkable. No abdominal aortic aneurysm. Lymph nodes: Unremarkable. No enlarged lymph nodes. IMPRESSION: 4 foreign bodies: 1. Metallic foreign body the stomach, measures approximately 4.0 x 0.9 cm. Additional foreign body with similar size measures 4.0 x 0.9 cm located within small bowel adjacent to the LEFT aorta. These may represent batteries. 2. Two thin linear metallic densities in the stomach, both measuring approximately 8 mm. Refer to the serology technician image. Electronically signed by: Gonzales Hwang MD 12/20/23 23:[address] 12/20/23 21:45 Exam(s): CT CHEST Without Contrast EXAM: CT Chest Without Intravenous Contrast CLINICAL HISTORY: Reason for exam: vomiting, FB ingestion. TECHNIQUE: Axial computed tomography images of the chest without intravenous contrast. CTDI is 8.38 mGy and DLP is 593.43 mGy-cm. Automated exposure control was utilized for the study. A dose lowering technique was utilized adhering to the principles of ALARA. COMPARISON: No relevant prior studies available. FINDINGS: Lungs: Unremarkable. No mass. No consolidation. Pleural space: Unremarkable. No pneumothorax. No significant effusion. Heart: Unremarkable. No cardiomegaly. No significant pericardial effusion. No significant coronary artery calcifications. Bones/joints: Unremarkable. No acute fracture. No dislocation. Soft tissues: Unremarkable. Vasculature: Unremarkable. No thoracic aortic aneurysm. Lymph nodes: Unremarkable. No enlarged lymph nodes. Stomach and bowel: Metallic density in the stomach, consistent with ingested foreign body. This measures approximately 4.3 x 0.9 cm. IMPRESSION: Metallic density in the stomach, consistent with ingested foreign body. This measures approximately 4.3 x 0.9 cm. Electronically signed by: Gonzales Hwang MD 12/20/23 23:51 PM Discharge Plan Visit Data Chief Complaint: Foreign Body Stated Complaint: INGESTION OF BATTERIES AND OTHER OBJECTS ED Provider: Carl Laguna Discharge Problem: Foreign body ingestion, Vomiting, Abrasion of left wrist, Suicidal ideation Forms Stand Alone Forms: [facility] Prescriptions Prescriptions: No Action levetiracetam [Keppra] 500 mg Tablet 1,500 mg PO BID mirtazapine [Remeron] 15 mg Tablet 15 mg PO HS divalproex [Depakote] 250 mg tablet,delayed release (DR/EC) 250 mg PO QAM divalproex 500 mg Tablet,Delayed Release (Dr/Ec) 500 mg PO HS risperidone 1 mg Tablet 1 mg PO HS sertraline 50 mg Tablet 50 mg PO HS DermaDaily Lotion 1 ea TOPICAL HS Rx Instructions: ADMINISTER IN PAPER CUP. Referrals Referrals: James PACE [Primary Care Provider] -
--- NOTE | 2023-12-21 03:38 | History & Physical Report ---
Date of Service December 21, 2023 Assessment & Plan (1) Suicidal ideation: Plan: 32-year-old male with past medical history significant for seizure disorder, mood disorder, chronic anemia baseline hemoglobin 12-13, past tobacco abuse, history of intentional drug overdose and breakthrough seizures, and history of foreign body ingestion and self-harm was brought in from nursing home because of swallowing 2 AA batteries and 2 FlexPen's. Patient states he is swallowed them to hurt himself. States it was a suicide attempt. Patient has history of foreign body ingestions in the past. Says he was having lot of nausea and vomited. In nursing home had episode of syncope with falling and hitting his head when he was vomiting. There is a bruise on the left forehead. Patient thinks he may have lost consciousness for a brief moment. Denies any headache. Denies dizziness. No blurred vision. No runny nose. Has sore throat from swallowing foreign objects. Denies shortness of breath. Denies chest pain. Has abdominal pain. Had normal bowel movement yesterday. Micturating okay. States he ambulates okay. Currently hemodynamics okay. Suicidal ideation Foreign body ingestions Swallowed 2 AA batteries and to flex pens, CT abdomen pelvis showing metallic foreign body in stomach and foreign body in the small bowel adjacent to left aorta which may present batteries. And also to thin linear metallic densities in the stomach both measuring approximately 8 mm N.p.o. IV fluids IV Protonix twice daily Pain control Telemetry KUB in a.m. GI consult in a.m. for further recommendations Suicidal ideation History of mood disorder Continue home medications Suicide precautions Consult psychiatry in a.m. Syncope? says while vomiting lost brief moment of consciousness and fell down and has bruise on left forehead-denied any pain mostly vasovagal telemonitor will get ct head History of seizure disorder On Keppra and Depakote DVT prophylaxis SCDs for now Disposition telemetry Full code History of Present Illness Chief Complaint: Foreign body ingestion Primary Care Provider: SANJEEV Ramirez 32-year-old male with past medical history significant for seizure disorder, mood disorder, chronic anemia baseline hemoglobin 12-13, past tobacco abuse, history of intentional drug overdose and breakthrough seizures, and history of foreign body ingestion and self-harm was brought in from nursing home because of swallowing 2 AA batteries and 2 FlexPen's. Patient states he is swallowed them to hurt himself. States it was a suicide attempt. Patient has history of foreign body ingestions in the past. Says he was having lot of nausea and vomited. In nursing home had episode of syncope with falling and hitting his head when he was vomiting. There is a bruise on the left forehead. Patient thinks he may have lost consciousness for a brief moment. Denies any headache. Denies dizziness. No blurred vision. No runny nose. Has sore throat from swallowing foreign objects. Denies shortness of breath. Denies chest pain. Has abdominal pain. Had normal bowel movement yesterday. Micturating okay. States he ambulates okay. Currently hemodynamics okay. Past medical history. As mentioned above. Past surgical history. EGD. Social history. Past tobacco use. Occasional alcohol intake. Family history. Heart disease, diabetes Allergies Allergy/AdvReac Type Severity Reaction Status Date / Time Penicillins Allergy Intermediate Rash Verified 08/28/23 18:16 trazodone AdvReac Intermediate Anxiety Verified 08/28/23 18:16 Home Medications Medication Instructions Recorded Confirmed Type Depakote ER 500 mg PO BID 12/21/23 12/21/23 History levetiracetam 500 mg tablet 1,500 mg PO BID 12/21/23 12/21/23 History mirtazapine 30 mg PO HS 12/21/23 12/21/23 History risperidone 1 mg tablet 1 mg PO BID 12/21/23 12/21/23 History sertraline 100 mg tablet 100 mg PO HS 12/21/23 12/21/23 History Past Med/Surg History Problem List (Updated 12/21/23 @ 00:21 by Carl Laguna MD) Suicidal ideation (Acute) Abrasion of left wrist (Acute) Vomiting (Acute) Closed fracture of finger, phalanx, distal (Acute) Closed head injury (Acute) Foreign body ingestion (Acute) Traumatic hematoma of forehead (Acute) Status epilepticus (Acute) Breakthrough seizure Medical History Tobacco abuse Anemia Suicidal ideation hx/o Ingestion of foreign body Seizure Encounter for pre-operative examination Surgical History H/O esophagogastroduodenoscopy Social History Smoking Status: Former smoker Tobacco Type: Cigarettes and Smokeless Tobacco (Dip or Chew) Second Hand Exposure: No; Do You Dip or Chew Tobacco: Yes; Hx Alcohol Use: Yes Alcohol type: beer Hx Substance Use: Yes Last Used Substance: Unknown Preferred Language: Tuvaluan Communication Ability: Effective Poured Wall Foreman Required: No Beliefs That Will Affect Care: None Current Living Situation: Other Current Living Situation Comment: Correctional facility Feels Safe at Home: Yes Gender Identity: Female Assistive Devices: None Review of Systems Review of Systems: All systems reviewed & are unremarkable except as noted in HPI & below Physical Exam Physical Exam: General- Not in acute distress Head- atraumatic Eyes- PERRL. ENT- oropharynx clear Neck- supple, no JVD. Lungs- clear to auscultation no wheezing or crackles Heart- regular rhythm; no murmur, no gallop Abdomen- normal bowel sounds, soft, mild diffuse discomfort no distension Extremities- no pretibial edema, no erythema seen Neuro- alert, oriented PERRL, no facial palsy; no dysarthria; moves extremities Results & Data Results & Data Vital Signs (Past 12 Hours) Vital Signs Temp Pulse Pulse Resp BP BP Pulse Ox 12/21/23 03:26 57 L 23 104/64 100 12/21/23 02:00 55 L 20 104/62 94 12/21/23 01:00 53 L 20 94/54 L 94 12/20/23 23:46 68 12/20/23 23:00 83 22 140/86 98 12/20/23 21:50 74 18 140/78 99 12/20/23 18:31 36.8 C 85 12 109/78 98 O2 Del Method 12/21/23 03:26 Room Air 12/21/23 02:00 Room Air 12/21/23 01:00 Room Air 12/20/23 23:46 12/20/23 23:00 Room Air 12/20/23 21:50 Room Air 12/20/23 18:31 Room Air Diagnostic Findings Laboratory Results WBC 12.53 K/ul (4.8-10.8) H 12/20/23 18:37 RBC 4.47 M/uL (4.70-6.10) L 12/20/23 18:37 Hgb 14.5 g/dl (14.0-18.0) 12/20/23 18:37 Hct 40.2 % (42.0-52.0) L 12/20/23 18:37 MCV 89.9 fL (80.0-100.0) 12/20/23 18:37 MCH 32.4 pg (25.0-34.0) 12/20/23 18:37 MCHC 36.1 g/dL (32.0-36.0) H 12/20/23 18:37 RDW Std Deviation 38.5 fL (36.4-46.3) 12/20/23 18:37 RDW Coeff of James 11.7 % (11.5-14.5) 12/20/23 18:37 Plt Count 399 K/uL (130-400) 12/20/23 18:37 MPV 9.3 fL (9.4-12.4) L 12/20/23 18:37 Immature Gran % (Auto) 0.4 % 12/20/23 18:37 Neut % (Auto) 78.2 % 12/20/23 18:37 Lymph % (Auto) 15.9 % 12/20/23 18:37 [place] % (Auto) 4.7 % 12/20/23 18:37 Eos % (Auto) 0.5 % 12/20/23 18:37 Baso % (Auto) 0.3 % 12/20/23 18:37 Neut # (Auto) 9.80 K/uL (1.40-6.50) H 12/20/23 18:37 Lymph # (Auto) 1.99 K/uL (1.20-3.40) 12/20/23 18:37 [place] # (Auto) 0.59 K/uL (0.11-0.59) 12/20/23 18:37 Eos # (Auto) 0.06 K/uL (0.00-0.50) 12/20/23 18:37 Baso # (Auto) 0.04 K/uL (0.00-0.20) 12/20/23 18:37 Immature Gran # (Auto) 0.05 K/uL (0.01-0.20) 12/20/23 18:37 Sodium 137 mmol/L (136-145) 12/20/23 18:37 Potassium 3.7 mmol/L (3.5-5.1) 12/20/23 18:37 Chloride 103 mmol/L (98-107) 12/20/23 18:37 Carbon Dioxide 23 mmol/L (21-32) 12/20/23 18:37 Anion Gap 11 (3-11) 12/20/23 18:37 BUN 13 mg/dl (6-23) 12/20/23 18:37 Creatinine 0.79 mg/dl (0.6-1.4) 12/20/23 18:37 Est Cr Clr Drug Dosing Not Reportable 12/20/23 18:37 Est GFR ( Amer) 138.7 ml/min 12/20/23 18:37 Est GFR (Non-Af Amer) 119.7 ml/min 12/20/23 18:37 BUN/Creatinine Ratio 16.5 (10-20) 12/20/23 18:37 Glucose 100 mg/dl (70-99(Fasting)) H 12/20/23 18:37 Calcium 9.9 mg/dl (8.6-10.3) 12/20/23 18:37 Total Bilirubin 0.5 mg/dl (0.2-1.0) 12/20/23 18:37 AST 15 U/L (13-39) 12/20/23 18:37 ALT 11 U/L (7-52) 12/20/23 18:37 Alkaline Phosphatase 59 U/L (34-104) 12/20/23 18:37 Total Protein 7.1 gm/dl (6.0-8.3) 12/20/23 18:37 Albumin 5.0 gm/dl (3.4-5.0) 12/20/23 18:37 Globulin 2.1 gm/dl (2.5-4.0) L 12/20/23 18:37 Albumin/Globulin Ratio 2.4 (0.9-2) H 12/20/23 18:37 Impressions Abdomen/Pelvis CT 12/20/23 21:45 Exam(s): CT ABDOMEN + PELVIS Without Contrast EXAM: CT Abdomen and Pelvis Without Intravenous Contrast CLINICAL HISTORY: Reason for exam: FB ingestion, vomiting. TECHNIQUE: Axial computed tomography images of the abdomen and pelvis without intravenous contrast. CTDI is 9 mGy and DLP is 593 mGy-cm. Automated exposure control was utilized for the study. A dose lowering technique was utilized adhering to the principles of ALARA. COMPARISON: No relevant prior studies available. FINDINGS: Lung bases: Unremarkable. No mass. No consolidation. ABDOMEN: Liver: Unremarkable. Gallbladder and bile ducts: Unremarkable. No calcified stones. No ductal dilation. Pancreas: Unremarkable. No ductal dilation. Spleen: Unremarkable. No splenomegaly. Adrenals: Unremarkable. No mass. Kidneys and ureters: Unremarkable. No obstructing stones. No hydronephrosis. Stomach and bowel: Metallic foreign body the stomach, measures approximately 4.0 x 0.9 cm. Additional foreign body with similar size measures 4.0 x 0.9 cm located within small bowel adjacent to the LEFT aorta. These may represent batteries. Refer to the choke reamer image. Mild fecal retention, correlate for constipation. Two thin linear metallic densities in the stomach, both measuring approximately 8 mm. No obstruction. No mucosal thickening. PELVIS: Appendix: No findings to suggest acute appendicitis. Bladder: Unremarkable. No stones. Reproductive: Unremarkable as visualized. ABDOMEN and PELVIS: Intraperitoneal space: Unremarkable. No free air. No significant fluid collection. Bones/joints: No acute fracture. No dislocation. Soft tissues: Unremarkable. Vasculature: Unremarkable. No abdominal aortic aneurysm. Lymph nodes: Unremarkable. No enlarged lymph nodes. IMPRESSION: 4 foreign bodies: 1. Metallic foreign body the stomach, measures approximately 4.0 x 0.9 cm. Additional foreign body with similar size measures 4.0 x 0.9 cm located within small bowel adjacent to the LEFT aorta. These may represent batteries. 2. Two thin linear metallic densities in the stomach, both measuring approximately 8 mm. Refer to the choke reamer image. Electronically signed by: Gonzales Hwang MD 12/20/23 23:[address] 12/20/23 21:45 Exam(s): CT CHEST Without Contrast EXAM: CT Chest Without Intravenous Contrast CLINICAL HISTORY: Reason for exam: vomiting, FB ingestion. TECHNIQUE: Axial computed tomography images of the chest without intravenous contrast. CTDI is 8.38 mGy and DLP is 593.43 mGy-cm. Automated exposure control was utilized for the study. A dose lowering technique was utilized adhering to the principles of ALARA. COMPARISON: No relevant prior studies available. FINDINGS: Lungs: Unremarkable. No mass. No consolidation. Pleural space: Unremarkable. No pneumothorax. No significant effusion. Heart: Unremarkable. No cardiomegaly. No significant pericardial effusion. No significant coronary artery calcifications. Bones/joints: Unremarkable. No acute fracture. No dislocation. Soft tissues: Unremarkable. Vasculature: Unremarkable. No thoracic aortic aneurysm. Lymph nodes: Unremarkable. No enlarged lymph nodes. Stomach and bowel: Metallic density in the stomach, consistent with ingested foreign body. This measures approximately 4.3 x 0.9 cm. IMPRESSION: Metallic density in the stomach, consistent with ingested foreign body. This measures approximately 4.3 x 0.9 cm. Electronically signed by: Gonzales Hwang MD 12/20/23 23:51 PM ECG Additional Comments: ECG. Normal sinus rhythm with sinus arrhythmia rate of 83. No significant change was found. Code Status & VTE Plan VTE Prophylaxis Plan VTE Prophylaxis will be ordered: Yes
[2023-12-21] MEDS ORDERED: POLYETHYLENE (MIRALAX) 17 GM PACK PO PRN (04:07)
[2023-12-21] MEDS ORDERED: HYDROmorphone INJ 0.5 MG/0.5 ML SYR IV PRN ×2 (04:07)
[2023-12-21] MEDS ORDERED: NITROGLYCERIN SL 0.4 MG/TAB TAB SL PRN (04:07)
[2023-12-21] MEDS: SODIUM CHLORIDE 0.9% 1,000 ML IV SCH (05:05)
[2023-12-21 07:15] LABS: Basophils # (auto) 0.05 K/uL (0.00-0.20); Basophils % (auto) 0.9 %; Eosinophils # (auto) 0.17 K/uL (0.00-0.50); Hematocrit (blood only) 39.5 % (42.0-52.0); Hemoglobin 13.6 g/dl (14.0-18.0); Immature Granulocytes # (auto) 0.01 K/uL (0.01-0.20); Immature Granulocytes % (auto) 0.2 %; Lymphocytes # (auto) 1.83 K/uL (1.20-3.40); Lymphocytes % (auto) 31.8 %; Mean Corpuscular Hemoglobin 32.4 pg (25.0-34.0); Mean Corpuscular Hgb Conc 34.4 g/dL (32.0-36.0); Mean Platelet Volume 9.1 fL (9.4-12.4); Monocytes # (auto) 0.54 K/uL (0.11-0.59); Monocytes % (auto) 9.4 %; Neutrophils # (auto) 3.15 K/uL (1.40-6.50); Neutrophils % (auto) 54.7 %; Platelet Count 309 K/uL (130-400); RDW Coefficient of Variation 11.9 % (11.5-14.5); RDW Standard Deviation 40.3 fL (36.4-46.3); White Blood Count 5.75 K/ul (4.8-10.8)
[2023-12-21 07:29] LABS: BUN Creatinine Ratio 15.3 (10-20); Creatinine Clr Calc Pharmacy 134.1 ml/min; Est GFR (African American) 144.1 ml/min; Est GFR (Non-African American) 124.3 ml/min; Magnesium 1.9 mg/dl (1.7-2.4)
--- NOTE | 2023-12-21 07:29 | XRay Report ---
XR chest 1V not portable HISTORY: Chest pain COMPARISON: Chest 09/25/2023. FINDINGS: The lungs are clear. Cardiac silhouette is normal in size. No pleural effusions. No pneumot horax. IMPRESSION: No acute process. ACT 112: Negative or not required by law. Electronically signed by: Dexter Li M.D. 12/21/2023 7:28 AM
--- NOTE | 2023-12-21 07:30 | XRay Report ---
KUB HISTORY: foreign body ingestion COMPARISON: Abdomen and pelvis CT 12/20/2023. FINDINGS: The bowel gas pattern is unremarkable. There are no dilated loops of small bowel to suggest an obstruction. No renal calculi. No ureteral calculi. No pneumoperitoneum or pneumatosis. There ar e 2 cylindrical metallic densities within the right lower quadrant and left upper quadrant measuring 4.5 cm suggestive of ingested batteries. There are 2 additional punctate metallic foreign bodies also within the left upper quadrant likely within the stomach suggestive of pen tips. IMPRESSION: 1. Multiple metallic foreign bodies as described above suggestive of ingested foreign bodies. 2. No evidence for bowel obstruction. ACT 112: Negative or not required by law. Electronically signed by: Dexter Li M.D. 12/21/2023 7:29 AM
--- NOTE | 2023-12-21 09:56 | Communication Note ---
Date of Service: December 21, 2023 32 yo admitted following ingestion as a self-harm vs suicide attempt at the shelter. Assessment: They should remain on suicide precautions with guards present pending return to the shelter on suicide watch/shelter safety protocols until evaluated by their treating clinicians there. There are not a candidate for inpatient psychiatric care as they are an inmate and any forensic referrals would be at the discretion of the shelter. Agree with continuing medications as ordered. Further medication changes are contraindicated at this time due to lack of information regarding current treatment plans and approach by clinicians at [facility], what medications are available at [facility], [place] and for which acute changes could be counter- therapeutic. Unfortunately prisoners ingest or self injure with items for a variety of reasons, many of which include secondary gain or attempts to manipulate their environment. It's counter-therapeutic to involve multiple psychiatric providers due to splitting. Hospitalist may reach out if specific questions regarding their care. Liaison remains available should an acute behavioral management issue arise while hospitalized (code [email or web address]). Generally goals for management of ingestion of foreign bodies in individuals during incarceration include: -Minimizing reinforcement, treat medical concerns promptly will goals of returning to [facility] once medically stable Plan: Patient is an inmate at [facility] admitted for foreign body ingestion. Suicide precautions with 1-on-1 at discretion of hospitalist as guards will also be pr esent at bedside and can return to [facility] on suicide precautions pending further evaluation there. Please reconsult if acute management issue.
[2023-12-21] MEDS: PANTOprazole 40 MG in SYRINGE 0 ML IV SCH (10:05)
[2023-12-21] MEDS: DIVALPROEX EXTENDED RELEASE 500 MG TAB PO SCH (10:06)
[2023-12-21] MEDS: levETIRAcetam 500 MG TAB PO SCH (10:06)
[2023-12-21] MEDS: risperiDONE 1 MG TABLET PO SCH (10:06)
--- NOTE | 2023-12-21 10:33 | CT Scan Report ---
CT OF THE HEAD WITHOUT CONTRAST CLINICAL HISTORY: fall. bruise on let forehead COMPARISON STUDY: Head CT September 25, 2023. CT DOSE: 922.39 mGy.cm TECHNIQUE: Helical axial images of the head were obtained without IV contrast. Automated exposure con trol was utilized for the study. A dose lowering technique was utilized adhering to the principles o f ALARA. FINDINGS: No acute intracranial hemorrhage, midline shift or mass effect is present. The ventricular system is unremarkable. The basal cisterns are patent. No extra-axial collections are present. There are no findings to suggest acute dural sinus thrombosis or acute territorial infarct. There are no ca lvarial fractures. Left frontal calvarial thickening is chronic. IMPRESSION: 1. No acute intracranial findings. 2. No calvarial fractures. ACT 112: Negative or not required by law. Electronically signed by: Trung Spear M.D. 12/21/2023 10:31 AM
[2023-12-21] MEDS ORDERED: SUCCINYLCHOLINE CHLORIDE 20 MG/ML 10 ML VIAL IV ONE (10:47)
[2023-12-21] MEDS ORDERED: fentaNYL citrate PF 100 MCG/2 ML VIAL ONE (10:47)
[2023-12-21] MEDS ORDERED: DEXAMETHASONE SOD INJ 4 MG/ML VIAL ONE (10:47)
[2023-12-21] MEDS ORDERED: ONDANSETRON INJ 2 MG/ML 2 ML VIAL ONE (10:47)
[2023-12-21] MEDS ORDERED: MIDAZOLAM HCL 1 MG/ML 2ML VIAL ONE (10:47)
[2023-12-21] MEDS ORDERED: ROCURONIUM BROMIDE 10 MG/ML 5 ML VIAL IV ONE (10:47)
[2023-12-21] MEDS ORDERED: LIDOCAINE 2% 2 ML VIAL/AMP(20MG/ML) INFIL ONE (10:47)
[2023-12-21] MEDS ORDERED: PROPOFOL IV EMULSION 10 MG/ML 20 ML VIAL IV ONE (10:47)
[2023-12-21] MEDS: LACTATED RINGER'S 1,000 ML IV SCH (11:57)
--- NOTE | 2023-12-21 12:13 | Anesthesiology Consultation ---
Date of Service December 21, 2023 Assessment & Plan ASA ASA2 Proposed Anesthesia Anesthesia Type: General Risk / Benefits Reviewed With: PT / POA / Parent / Guardian, Accepts Plan and Informed Consent Obtained History Surgery Operation Date: 12/21/23 08:50 Proposed Procedures p Esophagogastroduodenoscopy - Shan Parish Jr, MD Height/Weight Height: 5 ft 6 in Weight: 75 kg Allergies Allergy/AdvReac Type Severity Reaction Status Date / Time Penicillins Allergy Intermediate Rash Verified 12/21/23 12:02 trazodone AdvReac Intermediate Anxiety Verified 12/21/23 12:02 Medications Home Medications Medication Instructions Recorded Confirmed Last Taken Depakote ER 500 mg PO BID 12/21/23 12/21/23 Unknown levetiracetam 500 mg tablet 1,500 mg PO BID 12/21/23 12/21/23 Unknown mirtazapine 30 mg PO HS 12/21/23 12/21/23 Unknown risperidone 1 mg tablet 1 mg PO BID 12/21/23 12/21/23 Unknown sertraline 100 mg tablet 100 mg PO HS 12/21/23 12/21/23 Unknown Active Medications Generic Name Dose Route Start Last Admin Trade Name Freq PRN Reason Stop Dose Admin Divalproex Sodium 500 mg 12/21/23 09:00 12/21/23 10:06 Divalproex Extended Release 500 Mg Tab PO 01/20/24 08:59 500 mg BID AIDEN Administration Sodium Chloride 1,000 mls @ 125 mls/hr 12/21/23 04:07 12/21/23 05:05 Nss IV 01/20/24 04:06 125 mls/hr .Q8H AIDEN Administration Pantoprazole Sodium 40 mg/ 10 mls @ 5 mls/min 12/21/23 09:00 12/21/23 10:05 Syringe IV 01/20/24 08:59 5 mls/min BID AIDEN Administration Lactated Ringer's 1,000 mls @ 15 mls/hr 12/21/23 12:00 12/21/23 11:57 Lr IV 01/20/24 11:59 15 mls/hr .Q24H AIDEN Administration Levetiracetam 1,500 mg 12/21/23 09:00 12/21/23 10:06 Levetiracetam 500 Mg Tab PO 01/20/24 08:59 1,500 mg BID AIDEN Administration Risperidone 1 mg 12/21/23 09:00 12/21/23 10:06 Risperidone 1 Mg Tablet PO 01/20/24 08:59 1 mg BID AIDEN Administration NPO Date Last Intake of Fluids: 12/20/23 Time Last Intake of Fluids: 11:00 Last Intake of Fluids Comment: sip of water 1006 w/seizure meds Date Last Intake of Solids: 12/20/23 Time Last Intake of Solids: 11:00 Past Medical History Medical History Tobacco abuse Anemia Suicidal ideation hx/o Ingestion of foreign body Seizure Encounter for pre-operative examination Exercise / Class Metabolic Activity II 4-5 Yardwork/Stairs/Walk up hill Past Surgical History Surgical History H/O esophagogastroduodenoscopy Past Anesthesia History No Hx of Anesthesia Complications and No Family Hx of Anesthesia Complications History of PONV No Hx of PONV and No Hx of Motion Sickness Social History Smoking Status: Former smoker Do You Dip or Chew Tobacco: Yes Hx Alcohol Use: Yes Alcohol type: beer alcohol intake frequency: 0-2 drinks per day Hx Substance Use: Yes substance use type: former substance user Last Used Substance: Unknown Review of Systems denies fever/cough/ colds/ chest pain/ SOB/ MANINDER denies MANINDER Physical Exam Vital Signs Last Vital Signs Temp 36.5 C 12/21/23 11:49 Pulse 67 12/21/23 11:49 Resp 18 12/21/23 11:49 BP 121/75 12/21/23 11:49 Pulse Ox 98 12/21/23 11:49 O2 Del Method Room Air 12/21/23 11:49 ENMT Mouth: no TMJ abnormality and no dentition abnormality Thyromental Distance: > or= 3.5 Finger Breadths Mallampati Class: II Neck neck extension not limited Respiratory normal respiratory effort; no respiratory distress Auscultation: lungs clear to auscultation bilaterally Cardiovascular Rate/Rhythm: regular rate and regular rhythm Neurologic moves all extremities Psychiatric Orientation: alert and oriented x 3 Testing Laboratory Results 12/21/23 06:58 12/21/23 06:58
--- NOTE | 2023-12-21 12:38 | History & Physical Report ---
Date of Service December 21, 2023 Assessment & Plan (1) Foreign body ingestion: Plan: Inmate with repetitive foreign body ingestion. Procedure and risks discussed. He agrees Admission and Anticipated Discharge Date Admission Date: December 21, 2023 History of Present Illness Chief Complaint: foreign body ingestion Primary Care Provider: SANJEEV James 32 year old inmate back again with foreign body ingestion. Says it was to hurt himself. Allergies Allergy/AdvReac Type Severity Reaction Status Date / Time Penicillins Allergy Intermediate Rash Verified 12/21/23 12:02 trazodone AdvReac Intermediate Anxiety Verified 12/21/23 12:02 Home Medications Medication Instructions Recorded Confirmed Type Depakote ER 500 mg PO BID 12/21/23 12/21/23 History levetiracetam 500 mg tablet 1,500 mg PO BID 12/21/23 12/21/23 History mirtazapine 30 mg PO HS 12/21/23 12/21/23 History risperidone 1 mg tablet 1 mg PO BID 12/21/23 12/21/23 History sertraline 100 mg tablet 100 mg PO HS 12/21/23 12/21/23 History Past Med/Surg History Problem List Suicidal ideation (Acute) Abrasion of left wrist (Acute) Vomiting (Acute) Closed fracture of finger, phalanx, distal (Acute) Closed head injury (Acute) Foreign body ingestion (Acute) Traumatic hematoma of forehead (Acute) Status epilepticus (Acute) Breakthrough seizure Medical History Tobacco abuse Anemia Suicidal ideation hx/o Ingestion of foreign body Seizure Encounter for pre-operative examination Surgical History H/O esophagogastroduodenoscopy Social History Smoking Status: Former smoker Tobacco Type: Cigarettes and Smokeless Tobacco (Dip or Chew) Second Hand Exposure: No; Do You Dip or Chew Tobacco: Yes; Hx Alcohol Use: Yes Alcohol type: beer Hx Substance Use: Yes Last Used Substance: Unknown Preferred Language: Romanian Communication Ability: Effective Lay Out Inspector Required: No Beliefs That Will Affect Care: None Current Living Situation: Other Current Living Situation Comment: Correctional facility Feels Safe at Home: Yes Gender Identity: Female Assistive Devices: None Physical Exam Constitutional: WD/WN, vitals as above Neck: trachea midline, no thyromegaly Respiratory: normal respiratory effort, lungs clear to auscultation Cardiovascular: RRR, no murmur, no edema Gastrointestinal (Abdomen): normal bowel sounds, soft, nontender, no hepatosplenomegaly ASA Classification ASA ASA2 Results & Data Vital Signs (Past 12 Hours) Vital Signs Temp Pulse Pulse Pulse Pulse Resp BP 12/21/23 11:49 36.5 C 67 18 12/21/23 08:06 68 21 12/21/23 07:45 65 19 100/60 12/21/23 07:00 60 18 12/21/23 06:47 56 L 12 12/21/23 06:45 98/59 L 12/21/23 06:45 56 L 12 12/21/23 06:45 56 L 12 12/21/23 06:36 53 L 12 12/21/23 06:33 59 L 16 12/21/23 06:21 58 L 15 12/21/23 05:51 54 L 11 L 12/21/23 05:21 56 L 13 12/21/23 05:14 58 L 12/21/23 04:39 52 L 20 12/21/23 04:22 36.7 C 61 24 12/21/23 04:12 56 L 15 12/21/23 03:41 54 L 12/21/23 03:39 56 L 15 12/21/23 03:26 57 L 23 12/21/23 03:21 67 23 12/21/23 03:00 104/64 12/21/23 02:54 69 17 12/21/23 02:33 55 L 13 12/21/23 02:03 53 L 14 12/21/23 02:00 104/62 12/21/23 02:00 104/62 12/21/23 02:00 55 L 20 12/21/23 01:57 52 L 23 12/21/23 01:30 103/56 L 12/21/23 01:30 103/56 L 12/21/23 01:30 54 L 12 12/21/23 01:03 51 L 10 L 12/21/23 01:00 95/57 L 12/21/23 01:00 95/57 L 12/21/23 01:00 95/57 L 12/21/23 01:00 53 L 20 12/21/23 00:57 54 L 15 BP Pulse Ox O2 Del Method 12/21/23 11:49 121/75 98 Room Air 12/21/23 08:06 100 Room Air 12/21/23 07:45 100 12/21/23 07:00 100 12/21/23 06:47 98/59 L 98 Room Air 12/21/23 06:45 12/21/23 06:45 98/59 L 98 Room Air 12/21/23 06:45 98 Room Air 12/21/23 06:36 98 12/21/23 06:33 97 12/21/23 06:21 96 12/21/23 05:51 98 12/21/23 05:21 100 12/21/23 05:14 12/21/23 04:39 96 12/21/23 04:22 105/65 97 Room Air 12/21/23 04:12 94 12/21/23 03:41 12/21/23 03:39 100 12/21/23 03:26 104/64 100 Room Air 12/21/23 03:21 98 12/21/23 03:00 12/21/23 02:54 99 12/21/23 02:33 95 12/21/23 02:03 95 12/21/23 02:00 12/21/23 02:00 12/21/23 02:00 104/62 94 Room Air 12/21/23 01:57 96 12/21/23 01:30 12/21/23 01:30 12/21/23 01:30 94 12/21/23 01:03 95 12/21/23 01:00 12/21/23 01:00 12/21/23 01:00 12/21/23 01:00 94/54 L 94 Room Air 12/21/23 00:57 96 Code Status & VTE Plan VTE Prophylaxis Plan VTE Prophylaxis will be ordered: Yes
[2023-12-21] MEDS ORDERED: DexMEDEtomidine HCL IV 100 MCG/ML VIAL IV ONE (13:03)
--- NOTE | 2023-12-21 13:08 | GI REPORT ---
[facility] Patient: SHLOMO PANDYA : 1990 Sex at : Male Age: 32 Years Procedure: Upper GI endoscopy Date: 12/21/2023 Attending Physician: Shan Parish MD Referring MD: James PACE; Ez Saravia Indications: - Foreign body in the esophagus Medications: - General Anesthesia - See the Anesthesia note for documentation of the administered medications Complications: - No immediate complications. Estimated Blood Loss: - Estimated blood loss: None. Procedure: - ASA Grade Assessment: II - A patient with mild systemic disease. - The egd scope was introduced through the mouth and advanced to the second part of the duodenum. - The upper GI endoscopy was accomplished without difficulty. - The patient tolerated the procedure well. Findings: - The examined esophagus was normal. - Two flex pens were found in the gastric fundus. Removal was accomplished with a snare. - Few non-bleeding superficial gastric ulcers with no stigmata of bleeding were found in the gastric antrum. The largest lesion was 8 mm in largest dimension. - The examined duodenum was normal. Impression: - Normal esophagus. - Two flex pens were found in the stomach. Removal was successful. - Non-bleeding gastric ulcers with no stigmata of bleeding. - Normal examined duodenum. Recommendation: - [facility] care. Procedure Code(s): - 25751, Esophagogastroduodenoscopy, flexible, transoral; with removal of foreign body(s) Diagnosis Code(s): - T18.108A, Unspecified foreign body in esophagus causing other injury, initial encounter - T18.2XXA, Foreign body in stomach, initial encounter - K25.9, Gastric ulcer, unspecified as acute or chronic, without hemorrhage or perforation CPT(R) - 2023 copyright [employer]. All Rights Reserved. The CPT codes, CCI edits and ICD codes generated are intended as suggestions and were generated based on input data. These codes are preliminary and upon doorkeeper review may be revised to meet current compliance and payer requirements. The provider is responsible for the final determination of appropriate codes, and modifiers. Dr. Shan Parish MD This document has been electronically signed. Note Initiated:12/21/2023 Note Completed:12/21/2023 1:07 PM \\[id number]
[2023-12-21] MEDS ORDERED: ATROPINE SULFATE 0.1 MG/ML 10ML SYR IV PRN (13:48)
[2023-12-21] MEDS ORDERED: PROMETHAZINE HCL 6.25 MG in SODIUM CHLORIDE 0.9% 50 ML IV PRN (13:48)
[2023-12-21] MEDS ORDERED: ePHEDrine sulfate 50 MG/ML AMP IV PRN (13:48)
[2023-12-21] MEDS ORDERED: ONDANSETRON INJ 2 MG/ML 2 ML VIAL IV PRN (13:48)
--- NOTE | 2023-12-21 13:52 | Anesthesiology Progress Note ---
Date of Service December 21, 2023 Anesthesia Post Procedure Vital Signs Vital Signs: Temp Pulse Pulse Pulse Pulse Resp BP 12/21/23 13:45 61 18 12/21/23 13:35 72 24 12/21/23 13:25 86 22 12/21/23 13:18 36.3 C L 84 14 12/21/23 11:49 36.5 C 67 18 12/21/23 08:06 68 21 12/21/23 07:45 65 19 100/60 12/21/23 07:00 60 18 12/21/23 06:47 56 L 12 12/21/23 06:45 98/59 L 12/21/23 06:45 56 L 12 12/21/23 06:45 56 L 12 12/21/23 06:36 53 L 12 12/21/23 06:33 59 L 16 12/21/23 06:21 58 L 15 12/21/23 05:51 54 L 11 L 12/21/23 05:21 56 L 13 12/21/23 05:14 58 L 12/21/23 04:39 52 L 20 12/21/23 04:22 36.7 C 61 24 12/21/23 04:12 56 L 15 12/21/23 03:41 54 L 12/21/23 03:39 56 L 15 12/21/23 03:26 57 L 23 12/21/23 03:21 67 23 12/21/23 03:00 104/64 12/21/23 02:54 69 17 12/21/23 02:33 55 L 13 12/21/23 02:03 53 L 14 12/21/23 02:00 104/62 12/21/23 02:00 104/62 12/21/23 02:00 55 L 20 12/21/23 01:57 52 L 23 12/21/23 01:30 103/56 L 12/21/23 01:30 103/56 L 12/21/23 01:30 54 L 12 12/21/23 01:03 51 L 10 L 12/21/23 01:00 95/57 L 12/21/23 01:00 95/57 L 12/21/23 01:00 95/57 L 12/21/23 01:00 53 L 20 12/21/23 00:57 54 L 15 12/21/23 00:36 64 15 12/21/23 00:12 56 L 18 12/20/23 23:46 68 12/20/23 23:00 83 22 12/20/23 21:50 74 18 12/20/23 18:31 36.8 C 85 12 109/78 BP Pulse Ox O2 Del Method O2 Flow Rate 12/21/23 13:45 114/69 97 Oxymask 2 12/21/23 13:35 109/77 97 Oxymask 3 12/21/23 13:25 115/60 94 Oxymask 5 12/21/23 13:18 120/56 L 94 Oxymask 9 12/21/23 11:49 121/75 98 Room Air 12/21/23 08:06 100 Room Air 12/21/23 07:45 100 12/21/23 07:00 100 12/21/23 06:47 98/59 L 98 Room Air 12/21/23 06:45 12/21/23 06:45 98/59 L 98 Room Air 12/21/23 06:45 98 Room Air 12/21/23 06:36 98 12/21/23 06:33 97 12/21/23 06:21 96 12/21/23 05:51 98 12/21/23 05:21 100 12/21/23 05:14 12/21/23 04:39 96 12/21/23 04:22 105/65 97 Room Air 12/21/23 04:12 94 12/21/23 03:41 12/21/23 03:39 100 12/21/23 03:26 104/64 100 Room Air 12/21/23 03:21 98 12/21/23 03:00 12/21/23 02:54 99 12/21/23 02:33 95 12/21/23 02:03 95 12/21/23 02:00 12/21/23 02:00 12/21/23 02:00 104/62 94 Room Air 12/21/23 01:57 96 12/21/23 01:30 12/21/23 01:30 12/21/23 01:30 94 12/21/23 01:03 95 12/21/23 01:00 12/21/23 01:00 12/21/23 01:00 12/21/23 01:00 94/54 L 94 Room Air 12/21/23 00:57 96 12/21/23 00:36 97 12/21/23 00:12 95 12/20/23 23:46 12/20/23 23:00 140/86 98 Room Air 12/20/23 21:50 140/78 99 Room Air 12/20/23 18:31 98 Room Air Pain Intensity Abdomen: Pain Intensity: 0 Transfer of Care Handoff Completed per policy Notes Mental Status: alert / awake / arousable and participated in evaluation Patient Amnestic to Procedure: Yes Nausea / Vomiting: adequately controlled Pain: adequately controlled Airway Patency, RR, SpO2: stable & adequate BP & HR: stable & adequate Hydration State: stable & adequate Anesthetic Complications: no major complications apparent
[2023-12-21] MEDS: fentaNYL citrate PF 100 MCG/2 ML VIAL IV PRN (13:55)
[2023-12-21] MEDS: HYDROmorphone INJ 2 MG/ML SYR/VIAL IV PRN (14:27)
--- NOTE | 2023-12-21 15:57 | Communication Note ---
Date of Service: December 21, 2023 Patient seen in his room post EGD. 2 guards at bedside, handcuffed to bed. Patient complains of some generalized abdominal pain Reviewed EGD report, 2 flex pens removed. Nonbleeding gastric ulcers Communication with gastroenterology team, no need to induce stools, can allow batteries to pass naturally, check stools for passage Communication with psychiatry, reviewed recommendations, patient can return to long-term and be followed by their psychiatrist, maintaining suicide precautions at present Exam: Abdomen: Generalized tenderness, no guarding or rigidity Advance diet PPI Anticipate discharge in a.m.
[2023-12-21] MEDS: fentaNYL citrate PF 100 MCG/2 ML VIAL ONE ×2 (16:05→16:06)
[2023-12-21 16:08] VITALS: RESP 18
[2023-12-21 18:25] VITALS: PULSE 62
[2023-12-21] MEDS: SERTRALINE HCL 100 MG TABLET PO SCH (21:21)
[2023-12-21] MEDS: PANTOprazole 40 MG TAB PO SCH (21:22)
[2023-12-21] MEDS: MIRTAZAPINE TAB 15 MG TAB PO SCH (21:22)
[2023-12-21] MEDS: ACETAMINOPHEN 325 MG TAB PO PRN (21:22)
[2023-12-21] MEDS: ONDANSETRON INJ 2 MG/ML 2 ML VIAL IV PRN (21:29)
--- NOTE | 2023-12-22 06:02 | Electrocardiogram Report ---
Test Reason : Blood Pressure : */* mmHG Vent. Rate : 83 BPM Atrial Rate : 83 BPM P-R Int : 114 ms QRS Dur : 92 ms QT Int : 386 ms P-R-T Axes : 90 67 58 degrees QTcB Int : 453 ms Normal sinus rhythm with sinus arrhythmia Normal ECG When compared with ECG of 25-Sep-2023 17:21, No significant change was found Confirmed by Alex Wilder ([id number]) on 12/22/2023 6:02:02 AM Referred By: [facility] Confirmed By: Alex Wilder
[2023-12-22 07:08] VITALS: BP 107/68; TEMP 97.9; O2SAT 97
[2023-12-22 07:43] LABS: Hematocrit (blood only) 39.6 % (42.0-52.0); Hemoglobin 13.9 g/dl (14.0-18.0); Mean Corpuscular Hemoglobin 32.9 pg (25.0-34.0); Mean Corpuscular Hgb Conc 35.1 g/dL (32.0-36.0); Mean Corpuscular Volume 93.8 fL (80.0-100.0); Mean Platelet Volume 9.3 fL (9.4-12.4); Platelet Count 331 K/uL (130-400); RDW Coefficient of Variation 11.9 % (11.5-14.5); Red Blood Count 4.22 M/uL (4.70-6.10); White Blood Count 7.26 K/ul (4.8-10.8)
--- NOTE | 2023-12-22 12:57 | Discharge Summary ---
<Statement entered by Markel Pathak, DO - 12/22/23 13:49> I have seen and examined the patient and have discussed the case with the provider above. I have reviewed the advanced practitioner's documentation, and I agree with, and take responsibility for that plan of care. 10 min on care and evaluation of patient. Tolerated his diet. No stool as of yet. Discharge plan as outlined below Date of Service December 22, 2023 Admission HPI Per Admitting Provider 32-year-old male with past medical history significant for seizure disorder, mood disorder, chronic anemia baseline hemoglobin 12-13, past tobacco abuse, history of intentional drug overdose and breakthrough seizures, and history of foreign body ingestion and self-harm was brought in from assisted because of swallowing 2 AA batteries and 2 FlexPen's. Patient states he is swallowed them to hurt himself. States it was a suicide attempt. Patient has history of foreign body ingestions in the past. Says he was having lot of nausea and vomited. In assisted had episode of syncope with falling and hitting his head when he was vomiting. There is a bruise on the left forehead. Patient thinks he may have lost consciousness for a brief moment. Denies any headache. Denies dizziness. No blurred vision. No runny nose. Has sore throat from swallowing foreign objects. Denies shortness of breath. Denies chest pain. Has abdominal pain. Had normal bowel movement yesterday. Micturating okay. States he ambulates okay. Currently hemodynamics okay. Admission Exam Per Admitting Provider Physical Exam Physical Exam: General- Not in acute distress Head- atraumatic Eyes- PERRL. ENT- oropharynx clear Neck- supple, no JVD. Lungs- clear to auscultation no wheezing or crackles Heart- regular rhythm; no murmur, no gallop Abdomen- normal bowel sounds, soft, mild diffuse discomfort no distension Extremities- no pretibial edema, no erythema seen Neuro- alert, oriented PERRL, no facial palsy; no dysarthria; moves extremities Principal Diagnosis Foreign Body Ingestion Discharge Exam General: awake, alert, no apparent distress, white, biological male, identifies as woman called "Rachele" Head: Normocephalic, atraumatic ENT: PERRL, EOMI, no pharyngeal exudate, mucous membranes moist Chest: Clear to auscultation, on room air, no adventitious breath sounds Cardiac: Regular rate and rhythm, no murmur, no JVD, normal peripheral pulses, good capillary refill Abdominal: NABS x 4 quadrants, soft, nondistended, nontender to palpation, no rebound or guarding Extremities: Normal inspection, no peripheral edema or erythema, calfs nontender to palpation Psych: Normal mood and affect Neuro: AAO x 3, strength intact bilaterally and rated 5/5, no motor deficits, speech is clear, no peripheral sensory deficits Discharge Data Allergies Allergy/AdvReac Type Severity Reaction Status Date / Time Penicillins Allergy Intermediate Rash Verified 12/21/23 12:02 trazodone AdvReac Intermediate Anxiety Verified 12/21/23 12:02 Consultations 12/20/23 23:32 ED Decision to Admit Stat 12/21/23 08:00 Consult Gastroenterology Routine Consult Psychiatry Routine Procedures Performed Operation Date: 12/21/23 08:50 Actual Procedures p Esophagogastroduodenoscopy - Shan Parish Jr, MD Ordered Studies 12/20/23 21:45 CT Abd and Pelvis [CT abd pelvis wo con] Stat CT chest diagnostic wo con Stat 12/21/23 09:34 CT head/brain wo con Urgent Hospital Course (1) Suicidal ideation: 32-year-old male with past medical history significant for seizure disorder, mood disorder, chronic anemia baseline hemoglobin 12-13, past tobacco abuse, history of intentional drug overdose and breakthrough seizures, and history of foreign body ingestion and self-harm was brought in from assisted because of swallowing 2 AA batteries and 2 FlexPen's. Patient states he is swallowed them to hurt himself. States it was a suicide attempt. Patient has history of foreign body ingestions in the past. Says he was having lot of nausea and vomited. In assisted had episode of syncope with falling and hitting his head when he was vomiting. There is a bruise on the left forehead. Patient thinks he may have lost consciousness for a brief moment. Denies any headache. Denies dizziness. No blurred vision. No runny nose. Has sore throat from swallowing foreign objects. Denies shortness of breath. Denies chest pain. Has abdominal pain. Had normal bowel movement yesterday. Micturating okay. States he a mbulates okay. Currently hemodynamics okay. Suicidal ideation Foreign body ingestions Swallowed 2 AA batteries and 2 flexible pens, CT abdomen pelvis showing metallic foreign body in stomach and foreign body in the small bowel adjacent to left aorta which represent batteries. And also to thin linear metallic densities in the stomach both measuring approximately 8 mm N.p.o. IV fluids IV Protonix twice daily - switched to po once daily on dc Pain control Telemetry KUB in a.m. GI consulted - underwent EGD on 12/20 and removed the flexible pens. Batteries will pass on their own. No further intervention Suicidal ideation History of mood disorder Continue home medications Suicide precautions Consult psychiatry - no further recommendations at this time, continue [employer] meds, recommend continuing psych eval within correctional facility at this time. Syncope? says while vomiting lost brief moment of consciousness and fell down and has bruise on left forehead-denied any pain This was most likely vasovagal No acute events on tele throughout admission Ct head negative History of seizure disorder On Keppra and Depakote DVT prophylaxis SCDs for now Disposition- From [place], dc to [facility] today. Signout given to physician at [facility] prior to discharge. Full code Total Time Total Time Spent Total Time Spent (In Minutes): 36 Discharge Plan Discharge Items Patient Disposition: Correctional Facility Reason For Visit: FOREIGN BODY INGESTION Discharge Diagnosis: Suicidal Ideation Ingestion of Foreign Body Condition on Discharge: Good Activity: Resume your previous activity Lifting: Gradually increase as tolerated Bathing: No limitations Exercise/Sports: Gradually increase as tolerated Weightbearing: Full weightbearing Non-emergency contact: Primary Care Provider Call non-emergency contact if: you have any medication questions, your symptoms worsen, your pain is not controlled, your pain is worsening and your temperature is above 101 [facility] - Diet: Regular Addtl Attending Provider Instructions: You were admitted to [facility] due to suicidal ideation and ingestion of foreign body and diagnosed with the same. During your stay here you were treated with supportive care, medications and were evaluated by Gastroenterology who performed an EGD ( upper scope) to remove two flexible pens. Two batteries were noted on imaging and these foreign bodies will naturally pass through your body. Medications: Continue taking you medications as prescribed Continue taking protonix daily for acid suppression with foriegn body. You likely can stop taking this after the batteries pass through your system. Appointments: Follow up with physician at the [facility]. Pending Studies at Discharge: No Stand-Alone Forms: My [facility] Skilled Items Patient informed of condition?: Yes Discharge Level of Care: Other Communicable Disease: No Discharge Prognosis: Improving Lines: None Urinary Catheter: No Medications and DC Order Prescriptions: New polyethylene glycol 3350 [Miralax] 17 gram Powder In Packet 17 g PO DAILY PRN (Reason: laxative effect) 30 Days Qty: 30 0RF pantoprazole 40 mg Tablet,Delayed Release (Dr/Ec) 40 mg PO DAILY 30 Days Qty: 30 0RF Continued levetiracetam 500 mg Tablet 1,500 mg PO BID sertraline 100 mg Tablet 100 mg PO HS risperidone 1 mg Tablet 1 mg PO BID Depakote ER 500 mg 500 mg PO BID mirtazapine 30 mg 30 mg PO HS Discharge Orders: Discharge Order (Routine); Ordered 12/22/23 Ordered By: Shanta Gusman Admission Data Admit Date/Time: 12/21/23 03:35 Attending Provider: Markel Pathak Admit Provider: Ez Saravia Primary Care Provider: James PACE Other Providers: Ez Saravia; Shan Parish Jr; Judie Herman; James Ocasio; Caden Parker Jr; Marilyn Saavedra; Ritu Castillo; Salbador Senior
== END 2023-12-22 12:20 | DRG 394 ==
LOC: ED 18:20 → INTOOBSV 12-21 03:35 → EDINP 12-21 03:35 → 3N 12-21 15:39

== ENCOUNTER 2024-01-16 13:31 | Inpatient (IN) ==
--- NOTE | 2024-01-16 14:01 | Emergency Department Note ---
Impression & Plan Foreign body ingestion ED Provider Note NAME: SHLOMO [id number] MUMTAZ AGE: 33 SEX: M : 1990 ARRIVES VIA: Walk-In INFORMANT: Patient ED PROVIDER(S):JOSEFA Roman, Carl Laguna MD CHIEF COMPLAINT: Foreign body HISTORY OF PRESENT ILLNESS: This 33-year-old male patient presents to the emergency department from the [facility] for a foreign body ingestion. Inmate reports he is swallowing foreign bodies because he feels he is not being heard by the psychiatrist, and the providers at the [facility]. He reports he has gender dysmorphia disorder, and states he feels acting out is the only way he is listened to. The patient states he has not passed the 2 batteries that were projecting over the cecum previously, despite the MiraLAX 3 times daily. He reports he also ate to sports, and to flex pens. He reports he is having mid abdominal pain, and small bowel movements. He denies fever, nausea, vomiting. He reports no suicidal ideation. REVIEW OF SYSTEMS: A review of systems was performed with positives and pertinent negatives listed in the history of present illness. All other systems were reviewed and are negative. ALLERGIES: See below MEDICATIONS: See below PMH: See below PHYSICAL EXAM: VITALS: Vitals are noted on the nurse's note and reviewed by myself. Vital signs stable. GENERAL: 33-year-old male, in no acute distress, nondiaphoretic, well-developed well-nourished. SKIN: The skin was without rashes, erythema, edema, or bruising. HEAD: Normocephalic atraumatic. HEART: Regular rate and rhythm without murmurs gallops or rubs. LUNGS: Clear to auscultation bilaterally without wheezes, rales or rhonchi. No retractions or accessory muscle use. ABDOMEN: Positive bowel sounds x 4. Soft TTP diffuse upper abdomen, umbilicus. No rebound tenderness or guarding. MUSCULOSKELETAL: No muscle atrophy, erythema, or edema noted. Normal gait. Strength 5/5 throughout. NEURO: Patient was alert and oriented to person place and time. No focal neurological deficits. MEDICAL DECISION MAKING: The patient is a 33-year-old male who arrives to the emergency department for evaluation of the above-stated complaint. KUB imaging was obtained which shows 2 metallic foreign bodies, representing pens, as well as the 2 batteries that have not changed position from the previous image on 01/11. I spoke with Dr. Jewell, from GI regarding the foreign body ingestion, who stated he will need to scope the patient, however he will also need a bowel prep prior to colonoscopy to remove the batteries. An order was placed for a saline lock, with basic lab work, for preoperative purposes. The patient will be admitted to Dr. Jewell's services at this time. Please refer to his documentation for further patient workup and care. DIFFERENTIAL DIAGNOSIS: Foreign body, obstruction, perforation, infection, as well as other pathologies. The chart was completed utilizing [employer] Speech voice recognition software. Grammatical errors, random word insertions, pronoun errors, and incomplete sentences are an occasional consequence of this system due to software limitations, ambient noise, and hardware issues. Any formal questions or concerns about the content, text, or information contained within the body of this dictation should be directly addressed to the physician for clarification. Past Med/Surg History Problem List (Updated 01/16/24 @ 16:31 by JOSEFA Benz) Foreign body ingestion (Acute) Encounter for pre-operative examination Constipation Suicidal ideation (Acute) Abrasion of left wrist (Acute) Vomiting (Acute) Closed fracture of finger, phalanx, distal (Acute) Closed head injury (Acute) Foreign body ingestion (Acute) Traumatic hematoma of forehead (Acute) Status epilepticus (Acute) Breakthrough seizure Medical History Tobacco abuse Anemia Suicidal ideation hx/o Ingestion of foreign body Seizure Encounter for pre-operative examination Surgical History H/O esophagogastroduodenoscopy Social History Smoking Status: Former smoker Tobacco Type: Cigarettes and Smokeless Tobacco (Dip or Chew) Second Hand Exposure: No; Do You Dip or Chew Tobacco: Yes; Hx Alcohol Use: Yes Alcohol type: beer Hx Substance Use: Yes Last Used Substance: Unknown Preferred Language: [place] Communication Ability: Effective Micropaleontologist Required: No Beliefs That Will Affect Care: None Current Living Situation: Other Current Living Situation Comment: Correctional facility Feels Safe at Home: Yes Gender Identity: Female Assistive Devices: None Allergies Allergies Allergy/AdvReac Type Severity Reaction Status Date / Time Penicillins Allergy Intermediate Rash Verified 12/21/23 12:02 trazodone AdvReac Intermediate Anxiety Verified 12/21/23 12:02 Home Meds Home Medications Medication Instructions Recorded Confirmed Depakote ER 500 mg PO BID 12/21/23 12/21/23 levetiracetam 500 mg tablet 1,500 mg PO BID 12/21/23 12/21/23 mirtazapine 30 mg PO HS 12/21/23 12/21/23 risperidone 1 mg tablet 1 mg PO BID 12/21/23 12/21/23 sertraline 100 mg tablet 100 mg PO HS 12/21/23 12/21/23 Previous Rx's Medication Instructions Recorded pantoprazole 40 mg tablet,delayed 40 mg PO DAILY 30 days #30 tabs 12/22/23 release polyethylene glycol 3350 17 gram 17 g PO DAILY PRN laxative effect 12/22/23 oral powder packet (Miralax) 30 days #30 ea Results & Data (ED) Vital Signs Vital Signs - 24 hr 01/16/24 13:44 01/16/24 16:13 01/16/24 16:18 Temperature 36.4 C L 36.4 C L Temperature Source Temporal Artery Scan Oral Pulse Rate 89 Pulse Rate [Right Finger] 88 72 Respiratory Rate 18 14 18 Respiratory Effort / Characteristics Non-Labored Spontaneous Non-Labored Spontaneous Respiratory Depth Normal Normal Respiratory Pattern Regular Regular Blood Pressure 155/94 H Blood Pressure [Left Arm] 125/93 133/93 Blood Pressure Mean 114 Blood Pressure Mean [Left Arm] 103 106 Blood Pressure Position [Left Arm] Sitting Pulse Oximetry 98 96 100 Oxygen Delivery Method Room Air Room Air Room Air Sepsis Recent Fever Within 48 Hours No Sepsis New/Unexplained Change in Mental Status N/A Sepsis Action Taken by Nursing No Action Required Home Medications Current Medication List: was personally reviewed by me Laboratory Data Attestation: I reviewed the patient's lab results. 01/16/24 15:40 01/16/24 15:40 Lab Results 01/16/24 01/16/24 Range/Units 15:40 Unknown WBC 5.29 (4.8-10.8) K/ul RBC 4.53 L (4.70-6.10) M/uL Hgb 14.6 (14.0-18.0) g/dl Hct 42.0 (42.0-52.0) % MCV 92.7 (80.0-100.0) fL MCH 32.2 (25.0-34.0) pg MCHC 34.8 (32.0-36.0) g/dL RDW Std Deviation 40.9 (36.4-46.3) fL RDW Coeff of James 11.9 (11.5-14.5) % Plt Count 339 (130-400) K/uL MPV 8.8 L (9.4-12.4) fL Immature Gran % (Auto) 0.4 % Neut % (Auto) 64.7 % Lymph % (Auto) 25.3 % York % (Auto) 6.6 % Eos % (Auto) 2.8 % Baso % (Auto) 0.2 % Neut # (Auto) 3.42 (1.40-6.50) K/uL Lymph # (Auto) 1.34 (1.20-3.40) K/uL York # (Auto) 0.35 (0.11-0.59) K/uL Eos # (Auto) 0.15 (0.00-0.50) K/uL Baso # (Auto) 0.01 (0.00-0.20) K/uL Immature Gran # (Auto) 0.02 (0.01-0.20) K/uL Sodium 137 (136-145) mmol/L Potassium 4.1 (3.5-5.1) mmol/L Chloride 100 (98-107) mmol/L Carbon Dioxide 29 (21-32) mmol/L Anion Gap 8 (3-11) BUN 10 (6-23) mg/dl Creatinine 0.63 (0.6-1.4) mg/dl Est Cr Clr Drug Dosing 168.3 ml/min eGFR 129.61 BUN/Creatinine Ratio 15.9 (10-20) Glucose 125 H (70-99(Fasting)) mg/dl Calcium 9.6 (8.6-10.3) mg/dl Total Bilirubin 0.5 (0.2-1.0) mg/dl AST 17 (13-39) U/L ALT 16 (7-52) U/L Alkaline Phosphatase 59 (34-104) U/L Total Protein 7.4 (6.0-8.3) gm/dl Albumin 4.9 (3.4-5.0) gm/dl Globulin 2.5 (2.5-4.0) gm/dl Albumin/Globulin Ratio 2.0 (0.9-2) Lipase 18 (11-82) U/L Urine Color Yellow Urine Appearance Clear (Clear) Urine pH 7.0 (4.5-7.5) Ur Specific [place] 1.003 (1.000-1.030) Urine Protein Negative (Negative) Urine Glucose (UA) Negative (Negative) Urine Ketones Negative (Negative) Urine Blood Negative (Negative) Urine Nitrite Negative (Negative) Urine Bilirubin Negative (Negative) Urine Urobilinogen Negative (Negative) Ur Leukocyte Esterase Negative (Negative) Imaging Data Attestation: I personally reviewed and interpreted this imaging study as follows: Radiologist's Impression: KUB X-Ray 01/16/24 14:01 KUB CLINICAL HISTORY: foreign body ingestion COMPARISON STUDY: CT of the abdomen and pelvis December 17, 2023 and KUB January 12, 2024. FINDINGS: The bowel gas pattern is normal. There is a moderate amount of stool within the colon and rectum. 2 metallic foreign bodies consistent with batteries project over the cecum. These are similar in position to prior exam. 2 additional metallic foreign bodies measuring 1.1 cm are also noted. These are new since prior exam. IMPRESSION: 1. Two batteries which project over the cecum, similar position to prior KUB. 2. Interval ingestion of 2 additional linear metallic foreign bodies which measure 1.1 cm in length and represent portions of pens. 3. No evidence for a bowel obstruction. ACT 112: Negative or not required by law. Electronically signed by: Trung Spear M.D. 01/16/2024 2:53 PM Discharge Plan Visit Data Chief Complaint: Foreign Body Stated Complaint: INGESTED FOREIGN BODIES, TWO FLEX PADS, ETC. ED Provider: Carl Laguna ED Midlevel Provider: Judie Chirinos Discharge Problem: Foreign body ingestion Patient Disposition: Admitted As Inpatient Discharge Instructions Interventions: ED Discharge Assessment Last Done: 01/16/24 16:14 Forms Stand Alone Forms: My [facility] [employer] Prescriptions Prescriptions: No Action levetiracetam 500 mg Tablet 1,500 mg PO BID sertraline 100 mg Tablet 100 mg PO HS risperidone 1 mg Tablet 1 mg PO BID Depakote ER 500 mg 500 mg PO BID mirtazapine 30 mg 30 mg PO HS polyethylene glycol 3350 [Miralax] 17 gram Powder In Packet 17 g PO DAILY PRN (Reason: laxative effect) 30 Days Qty: 30 0RF pantoprazole 40 mg Tablet,Delayed Release (Dr/Ec) 40 mg PO DAILY 30 Days Qty: 30 0RF Referrals Referrals: James PACE [Primary Care Provider] - Discharge Problem: Foreign body ingestion Qualifiers: Encounter type: initial encounter Qualified Code(s): T18.9XXA - Foreign body of alimentary tract, part unspecified, initial encounter
--- NOTE | 2024-01-16 14:54 | XRay Report ---
KUB CLINICAL HISTORY: foreign body ingestion COMPARISON STUDY: CT of the abdomen and pelvis December 17, 2023 and KUB January 12, 2024. FINDINGS: The bowel gas pattern is normal. There is a moderate amount of stool within the colon and r ectum. 2 metallic foreign bodies consistent with batteries project over the cecum. These are similar in position to prior exam. 2 additional metallic foreign bodies measuring 1.1 cm are also noted. Thes e are new since prior exam. IMPRESSION: 1. Two batteries which project over the cecum, similar position to prior KUB. 2. Interval ingestion of 2 additional linear metallic foreign bodies which measure 1.1 cm in length a nd represent portions of pens. 3. No evidence for a bowel obstruction. ACT 112: Negative or not required by law. Electronically signed by: Trung Spear M.D. 01/16/2024 2:53 PM
[2024-01-16] MEDS ORDERED: SIMETHICONE (ENDO) IR PRN (15:46)
--- NOTE | 2024-01-16 15:48 | Gastrointestinal Consultation ---
Date of Consultation January 16, 2024 Assessment & Plan (1) Ingestion of foreign body: 33-year-old with foreign body ingestion of 2 mccarthy and to flex the pens. These are seen as 1.1 cm linear densities in the stomach. Will plan for an EGD today for foreign body disimpaction and removal. Keep patient NPO. Will have to do an OR with intubation. The patient will need psychiatric evaluation post. He does have an ingestion of 2 batteries that are still in his cecum. After the test is done we should give him magnesium citrate to clean his colon. He will need a bowel prep while he is here to make sure those batteries clear out. Given their cecum, I would hate to do a colonoscopy to retrieve it over but that will be a last option. (2) Suicidal ideation: as per psych. (3) Constipation: Magnesium citrate after egd to get batteries out. KUB in am. History of Present Illness Reason for Consultation: foreign body ingestion Requesting Physician: ER: Judie and er nurse. History of Present Illness 33-year-old male patient presents to the emergency department from the [facility] [place] for a foreign body ingestion - 2 sporks and 2 flexipens. Inmate reports he is swallowing foreign bodies because he feels he is not being heard by the psychiatrist, and the providers at the [facility]. He reports he has gender dysmorphia disorder, and states he feels acting out is the only way he is listened to. Want to transition but not being allow to. The patient states he has not passed the 2 batteries that were projecting over the cecum previously, despite the MiraLAX 3 times daily. He reports he also ate to sporks, and two flex pens yesterday night He reports he is having mid abdominal pain, and small bowel movements. He denies fever, nausea, vomiting. He reports no suicidal ideation. xray with foreign body in stomach amd cecum: wo batteries which project over the cecum, similar position to prior KUB. 2. Interval ingestion of 2 additional linear metallic foreign bodies which measure 1.1 cm in length and represent portions of pens. 3. No evidence for a bowel obstruction. Allergies Allergy/AdvReac Type Severity Reaction Status Date / Time Penicillins Allergy Intermediate Rash Verified 12/21/23 12:02 trazodone AdvReac Intermediate Anxiety Verified 12/21/23 12:02 Home Medications Medication Instructions Recorded Confirmed Type Depakote ER 500 mg PO BID 12/21/23 12/21/23 History levetiracetam 500 mg tablet 1,500 mg PO BID 12/21/23 12/21/23 History mirtazapine 30 mg PO HS 12/21/23 12/21/23 History risperidone 1 mg tablet 1 mg PO BID 12/21/23 12/21/23 History sertraline 100 mg tablet 100 mg PO HS 12/21/23 12/21/23 History pantoprazole 40 mg tablet,delayed 40 mg PO DAILY 30 days #30 tabs 12/22/23 Rx release polyethylene glycol 3350 17 gram 17 g PO DAILY PRN laxative effect 12/22/23 Rx oral powder packet (Miralax) 30 days #30 ea Patient History Medical History Tobacco abuse Anemia Suicidal ideation hx/o Ingestion of foreign body Seizure Encounter for pre-operative examination Surgical History H/O esophagogastroduodenoscopy Social History Smoking Status: Former smoker Tobacco Type: Cigarettes and Smokeless Tobacco (Dip or Chew) Second Hand Exposure: No; Do You Dip or Chew Tobacco: Yes; Hx Alcohol Use: Yes Alcohol type: beer Hx Substance Use: Yes Last Used Substance: Unknown Preferred Language: [place] Communication Ability: Effective Track Helper Required: No Beliefs That Will Affect Care: None Current Living Situation: Other Current Living Situation Comment: Correction[facility] facility Feels Safe at Home: Yes Gender Identity: Female Assistive Devices: None Review of Systems Review of Systems: All systems reviewed & are unremarkable except as noted in HPI & below Physical Exam Physical Exam: Physical Exam: General: Well nourished and well developed in NAD HEENT: EOMI, PERRL Neck: trachea midline, no lad Lungs: CTA b, bilateral bs present Heart: RRR, no M and no edema Musculoskeletal: no c/c/e, normal strength B Neuro: CN2-12 intact, normal gait, normal strength Psych: normal affect and mood, euthymic. abd: epi tenderness, nabs, no rebound. Results & Data Vital Signs (Past 12 Hours) Vital Signs Temp Pulse Resp BP Pulse Ox O2 Del Method 01/16/24 13:44 36.4 C L 89 18 155/94 H 98 Room Air PG Care Time/CCT Total # of Minutes Spent Total Time Spent with Patient: Total time spent is greater than 50% in coordination of care (as documented) at patient's floor/unit and/or counseling patient: [place] [address] IN/OBS CONSULT LVL 5,80M Patient Type New Medical Decision Making Moderate Complexity Diagnoses Ingestion of foreign body T18.9XXA Encounter type: initial encounter Suicidal ideation R45.851 Constipation K59.00 (1) Ingestion of foreign body Encounter type: initial encounter Qualified Code(s): T18.9XXA - Foreign body of alimentary tract, part unspecified, initial encounter
[2024-01-16 15:56] LABS: Basophils # (auto) 0.01 K/uL (0.00-0.20); Basophils % (auto) 0.2 %; Eosinophils # (auto) 0.15 K/uL (0.00-0.50); Eosinophils % (auto) 2.8 %; Hemoglobin 14.6 g/dl (14.0-18.0); Immature Granulocytes # (auto) 0.02 K/uL (0.01-0.20); Immature Granulocytes % (auto) 0.4 %; Lymphocytes # (auto) 1.34 K/uL (1.20-3.40); Lymphocytes % (auto) 25.3 %; Mean Corpuscular Hemoglobin 32.2 pg (25.0-34.0); Mean Corpuscular Hgb Conc 34.8 g/dL (32.0-36.0); Mean Corpuscular Volume 92.7 fL (80.0-100.0); Mean Platelet Volume 8.8 fL (9.4-12.4); Monocytes # (auto) 0.35 K/uL (0.11-0.59); Monocytes % (auto) 6.6 %; Neutrophils # (auto) 3.42 K/uL (1.40-6.50); Neutrophils % (auto) 64.7 %; Platelet Count 339 K/uL (130-400); RDW Coefficient of Variation 11.9 % (11.5-14.5); RDW Standard Deviation 40.9 fL (36.4-46.3); Red Blood Count 4.53 M/uL (4.70-6.10); White Blood Count 5.29 K/ul (4.8-10.8)
[2024-01-16 15:57] LABS: Appearance Urine Clear (Clear); Bilirubin Urine Negative (Negative); Blood Urine Negative (Negative); Color Urine Yellow; Glucose Urine UA Negative (Negative); Ketones Urine Negative (Negative); Leukocyte Esterase Urine Negative (Negative); Nitrite Urine Negative (Negative); Protein Urine Negative (Negative); Specific Gravity Urine 1.003 (1.000-1.030); Urobilinogen Urine Negative (Negative)
--- NOTE | 2024-01-16 16:02 | Anesthesiology Consultation ---
Date of Service January 16, 2024 Assessment & Plan (1) Encounter for pre-operative examination: Chart Review Chart Review: Acceptable Risk for Surgery History Surgery Operation Date: 01/16/24 12:20 Proposed Procedures p Esophagogastroduodenoscopy - Rafa Jewell MD Height/Weight Height: 5 ft 9 in Weight: 76.5 kg Allergies Allergy/AdvReac Type Severity Reaction Status Date / Time Penicillins Allergy Intermediate Rash Verified 12/21/23 12:02 trazodone AdvReac Intermediate Anxiety Verified 12/21/23 12:02 Medications Home Medications Medication Instructions Recorded Confirmed Last Taken Depakote ER 500 mg PO BID 12/21/23 12/21/23 Unknown levetiracetam 500 mg tablet 1,500 mg PO BID 12/21/23 12/21/23 Unknown mirtazapine 30 mg PO HS 12/21/23 12/21/23 Unknown risperidone 1 mg tablet 1 mg PO BID 12/21/23 12/21/23 Unknown sertraline 100 mg tablet 100 mg PO HS 12/21/23 12/21/23 Unknown pantoprazole 40 mg tablet,delayed 40 mg PO DAILY 30 days #30 tabs 12/22/23 Unknown release polyethylene glycol 3350 17 gram 17 g PO DAILY PRN laxative effect 12/22/23 Unknown oral powder packet (Miralax) 30 days #30 ea Past Medical History Medical History (Updated 01/16/24 @ 16:01 by Eddie Swain MD) Tobacco abuse Anemia Suicidal ideation hx/o Ingestion of foreign body Seizure Past Surgical History Surgical History H/O esophagogastroduodenoscopy Social History Smoking Status: Former smoker Do You Dip or Chew Tobacco: Yes Hx Alcohol Use: Yes Alcohol type: beer alcohol intake frequency: 0-2 drinks per day Hx Substance Use: Yes substance use type: former substance user Last Used Substance: Unknown Physical Exam Vital Signs Last Vital Signs Temp 36.4 C L 01/16/24 13:44 Pulse 89 01/16/24 13:44 Resp 18 01/16/24 13:44 BP 155/94 H 01/16/24 13:44 Pulse Ox 98 01/16/24 13:44 O2 Del Method Room Air 01/16/24 13:44 Testing Laboratory Results 01/16/24 15:40 Urine Color Yellow 01/16/24 Unknown Urine Appearance Clear (Clear) 01/16/24 Unknown Urine pH 7.0 (4.5-7.5) 01/16/24 Unknown Ur Specific [place] 1.003 (1.000-1.030) 01/16/24 Unknown Urine Protein Negative (Negative) 01/16/24 Unknown Urine Glucose (UA) Negative (Negative) 01/16/24 Unknown Urine Ketones Negative (Negative) 01/16/24 Unknown Urine Nitrite Negative (Negative) 01/16/24 Unknown Ur Leukocyte Esterase Negative (Negative) 01/16/24 Unknown
[2024-01-16 16:12] LABS: Albumin Level 4.9 gm/dl (3.4-5.0); BUN Creatinine Ratio 15.9 (10-20); Bilirubin,Total 0.5 mg/dl (0.2-1.0); Calcium 9.6 mg/dl (8.6-10.3); Creatinine Clr Calc Pharmacy 168.3 ml/min; Globulin 2.5 gm/dl (2.5-4.0); Potassium 4.1 mmol/L (3.5-5.1); Total Protein 7.4 gm/dl (6.0-8.3)
[2024-01-16] MEDS ORDERED: ONDANSETRON INJ 2 MG/ML 2 ML VIAL IV PRN ×2 (16:18→18:50)
[2024-01-16] MEDS ORDERED: ATROPINE SULFATE 0.1 MG/ML 10ML SYR IV PRN (16:18)
--- NOTE | 2024-01-16 17:14 | GI REPORT ---
[facility] Patient: SHLOMO PANDYA : 1990 Sex at : Male Age: 33 Years Procedure: Upper GI endoscopy Date: 01/16/2024 Attending Physician: Rafa Jewell MD Referring MD: James PACE Indications: - Foreign body in the GI tract - Dysphagia Medications: - Monitored Anesthesia Care Complications: - No immediate complications. Estimated Blood Loss: - Estimated blood loss: None. - Estimated blood loss was minimal. Procedure: - Prior to the procedure, a History and Physical was performed, and patient medications and allergies were reviewed. The patient's tolerance of previous anesthesia was also reviewed. The risks and benefits of the procedure and the sedation options and risks were discussed with the patient. All questions were answered, and informed consent was obtained. Prior Anticoagulants: The patient has taken no anticoagulant or antiplatelet agents. ASA Grade Assessment: III - A patient with severe systemic disease. After reviewing the risks and benefits, the patient was deemed in satisfactory condition to undergo the procedure. - The egd scope was introduced through the mouth and advanced to the third part of the duodenum. - The upper GI endoscopy was accomplished without difficulty. - The patient tolerated the procedure well. Findings: - LA Grade B (one or more mucosal breaks greater than 5 mm, not extending between the tops of two mucosal folds) esophagitis with no bleeding was found at the gastroesophageal junction (on retroflexion). - A medium amount of food (residue) was found in the gastric body. - A foreign body was found in the first portion of the duodenum. A flexipen was noted impacted in the D1-D2 junction. The very distal tip of pen grabbed and brought into stomach - A large flexipen inner portion noted in the stomach after carefully removed from d1-d2 impaction. It was over 5 cm long. Scope removed and bautista placed and then noted the pen in stomach. Using rat tooth, the pen was grabbed and safely sharp edge placed into the bautista and pen removed. Impression: - LA Grade B reflux esophagitis with no bleeding. - A medium amount of food (residue) in the stomach. - Duodenal foreign body. - A flexipen was noted impacted in the D1-D2 junction. The very distal tip of pen grabbed and brought into stomach - A large flexipen inner portion noted in the stomach after carefully removed from d1-d2 impaction. It was over 5 cm long. Scope removed and bautista placed and then noted the pen in stomach. Using rat tooth, the pen was grabbed and safely sharp edge placed into the bautista and pen removed. - No specimens collected. Recommendation: - Discharge patient to home (ambulatory). - Resume previous diet. - Continue present medications. - Await pathology results. - Return to primary care physician as previously scheduled. - Patient has a contact number available for emergencies. The signs and symptoms of potential delayed complications were discussed with the patient. Return to normal activities tomorrow. Written discharge instructions were provided to the patient. - Use Protonix (pantoprazole) 40 mg PO BID. - Clear liquid diet today. Procedure Code(s): - 62029, Esophagogastroduodenoscopy, flexible, transoral; diagnostic, including collection of specimen(s) by brushing or washing, when performed (separate procedure) Diagnosis Code(s): - T18.9XXA, Foreign body of alimentary tract, part unspecified, initial encounter - R13.10, Dysphagia, unspecified - K21.00, Gastro-esophageal reflux disease with esophagitis, without bleeding - T18.3XXA, Foreign body in small intestine, initial encounter CPT(R) - 2023 copyright [employer]. All Rights Reserved. The CPT codes, CCI edits and ICD codes generated are intended as suggestions and were generated based on input data. These codes are preliminary and upon keyboard action assembler review may be revised to meet current compliance and payer requirements. The provider is responsible for the final determination of appropriate codes, and modifiers. Rafa Jewell MD This document has been electronically signed. Note Initiated:01/16/2024 Note Completed:01/16/2024 5:13 PM \\[email or web address]\Central\InterfaceData\Data\Provation\Results\LIVE\[id number]
[2024-01-16] MEDS ORDERED: PROPOFOL IV EMULSION 10 MG/ML 20 ML VIAL IV ONE (17:19)
[2024-01-16] MEDS ORDERED: LARYING-O-JET KIT (LTA) ONE (17:19)
[2024-01-16] MEDS ORDERED: LIDOCAINE 2% 2 ML VIAL/AMP(20MG/ML) INFIL ONE (17:19)
[2024-01-16] MEDS ORDERED: SUCCINYLCHOLINE CHLORIDE 20 MG/ML 10 ML VIAL IV ONE (17:19)
[2024-01-16] MEDS ORDERED: ONDANSETRON INJ 2 MG/ML 2 ML VIAL ONE (17:19)
[2024-01-16] MEDS: KETOROLAC 30 MG/ML VIAL IV PRN (17:20)
--- NOTE | 2024-01-16 17:34 | History & Physical Report ---
Date of Service January 16, 2024 Assessment & Plan (1) Foreign body ingestion: Plan: Pt is a [facility] Hospitalist service pt. Did discuss with Eileen at time of admission. Was contacted by GI as on-call provider in time of high admission volume. Due to high-volume will be admitted by [facility] hospitalist service; will be transferred to [facility] Hospitalist rounding list 01/16. Foreign body ingestion Ingested 2 sporks and a flexipen. Additionally with recent battery ingestion in the prior month S/p foreign body removal by EGD 01/16/2024 Clear liquids tonight KUB in the morning Will continue H2 abhijit IV twice daily Will need magnesium citrate/colon prep tomorrow, this is not recommended for 01/15 immediately post EGD procedure Multimodal pain control, Tylenol, conservative morphine for breakthrough pain. Toradol deferred due to gastric erosions If any acute worsening pain develops overnight/concern for acute abdomen it obtain stat KUB to evaluate for free air. Signed out to overnight provider (2) Schizoaffective disorder: Plan: Schizoaffective disorder With history of mood disorder, auditory hallucinations, command hallucinations - Endorses ongoing auditory hallucinations that tell her to kill herself. Denies SI HI but endorses compulsive auditory hallucinations. Safe tray, psychiatry consulted, one-to-one Psychiatry consulted following for the morning Continue sertraline, risperidone (3) Seizure: Plan: History of seizure disorder Continue Keppra, Depakote No seizures since February 2023 Ativan rescue on-call if needed (4) Suicidal ideation: Plan: Denies SI but is with ongoing command hallucinations. Safe tray, one-to-one, psych consulted Plan DVT prophylaxis: SCDs CODE STATUS: Full code Disposition: PCU Diet: Clears History of Present Illness Primary Care Provider: SANJEEV Peñaloza "Sreedhar Rodríguez is a 33-year-old transgendered female who presented from the custodial for foreign body ingestion. Patient had a martinez ingestion, in addition to recent hospitalization for a battery ingestion. Per Sign Out: Was contacted by GI from PACU. Patient did have an EGD for foreign body disimpaction, FlexPen was able to be removed however there were multiple erosions noted. No perforation or complications at time of procedure. Patient does have remaining 2 batteries projecting over the cecum despite taking MiraLAX 3 times daily. Per discussion with GI is recommended to be on clear liquids tonight. Do not want to have on a prep tonight due to removal of pen today and erosions however will need to be placed on a GI prep tomorrow and may need follow-up colonoscopy for battery removal as these are at high risk of eventual breakdown if not passed. Is recommended for ongoing hospitalization and monitoring until that time. Per Pt: Rachele is seen in the PACU postop. Endorses epigastric pain and a sore throat otherwise no acute complaints. Is still somewhat groggy from anesthesia but is oriented to month, year, and place and answers questions appropriately. Denies SI but endorses ongoing command auditory hallucinations which instructed her to try to kill herself which have been present in the last week. Endorses that these hallucinations are still generally present although feels very "out of it "after anesthesia. Reports that she has been diagnosed with schizoaffective disorder outside of [place] although had never been diagnosed with this since being in [place]. Endorses past history of seizure, no seizure since February 2023 and stable on current medications. Did take all prescription medications this morning and confirms Depakote, Keppra, risperidone, sertraline, and thinks mirtazapine. No fevers chills or sweats. No chest pain or chest pressure. Denies history of heart lung or kidney disease. Former tobacco abuse, denies tobacco use in the last year. No alcohol/recreational drug use. Currently incarcerated Allergic to penicillin which causes swelling and hives; and trazodone which "made me crazy " Full code Allergies Allergy/AdvReac Type Severity Reaction Status Date / Time Penicillins Allergy Intermediate Rash Verified 12/21/23 12:02 trazodone AdvReac Intermediate Anxiety Verified 12/21/23 12:02 Home Medications Medication Instructions Recorded Confirmed Type Depakote ER 500 mg PO BID 12/21/23 12/21/23 History levetiracetam 500 mg tablet 1,500 mg PO BID 12/21/23 12/21/23 History mirtazapine 30 mg PO HS 12/21/23 12/21/23 History risperidone 1 mg tablet 1 mg PO BID 12/21/23 12/21/23 History sertraline 100 mg tablet 100 mg PO HS 12/21/23 12/21/23 History pantoprazole 40 mg tablet,delayed 40 mg PO DAILY 30 days #30 tabs 12/22/23 Rx release polyethylene glycol 3350 17 gram 17 g PO DAILY PRN laxative effect 12/22/23 Rx oral powder packet (Miralax) 30 days #30 ea Past Med/Surg History Problem List (Updated 01/16/24 @ 17:47 by Abimael Stoddard MD) Schizoaffective disorder Foreign body ingestion (Acute) Encounter for pre-operative examination Constipation Suicidal ideation (Acute) Abrasion of left wrist (Acute) Vomiting (Acute) Closed fracture of finger, phalanx, distal (Acute) Closed head injury (Acute) Foreign body ingestion (Acute) Traumatic hematoma of forehead (Acute) Status epilepticus (Acute) Breakthrough seizure Medical History Tobacco abuse Anemia Suicidal ideation hx/o Ingestion of foreign body Seizure Encounter for pre-operative examination Surgical History H/O esophagogastroduodenoscopy Social History Smoking Status: Former smoker Tobacco Type: Cigarettes and Smokeless Tobacco (Dip or Chew) Second Hand Exposure: No; Do You Dip or Chew Tobacco: Yes; Hx Alcohol Use: Yes Alcohol type: beer Hx Substance Use: Yes Last Used Substance: Unknown Preferred Language: Namibian Communication Ability: Effective Inspector Hot Forgings Required: No Beliefs That Will Affect Care: None Current Living Situation: Other Current Living Situation Comment: Correctional facility Feels Safe at Home: Yes Gender Identity: Female Assistive Devices: None Physical Exam Physical Exam: General: A&Ox3. NAD. Cooperative. HEENT: Atraumatic, normocephalic. Vision and hearing grossly intact. Pupils equal and reactive Pulm: CTAB A&P. -wheezes, -rales, -rhonchi. Symmetrical chest rise. No increased work of breathing. No respiratory distress. Cardiac: RRR, -mrg. Radial pulses intact and symmetrical. Abdominal: +epigastric TTP. No involuntary guarding/rebound. Soft. BS increased. Results & Data Results & Data Vital Signs (Past 12 Hours) Vital Signs Temp Pulse Pulse Pulse Resp BP BP 01/16/24 17:20 64 15 134/96 01/16/24 17:10 36.6 C 71 22 135/95 01/16/24 16:18 36.4 C L 72 18 133/93 01/16/24 16:13 88 14 125/93 01/16/24 13:44 36.4 C L 89 18 155/94 H Pulse Ox O2 Del Method O2 Flow Rate 01/16/24 17:20 97 Room Air 01/16/24 17:10 97 Oxymask 5 01/16/24 16:18 100 Room Air 01/16/24 16:13 96 Room Air 01/16/24 13:44 98 Room Air PG Care Time/CCT Total # of Minutes Spent Total Time Spent with Patient: Total time spent is greater than 50% in coordination of care (as documented) at patient's floor/unit and/or counseling patient: Coding Level of Care Code 88643 INT INP/OBS CARE 3/75MIN Diagnoses Foreign body ingestion T18.9XXA Schizoaffective disorder F25.9 Seizure R56.9 Suicidal ideation R45.851
--- NOTE | 2024-01-16 17:52 | Anesthesiology Progress Note ---
Date of Service January 16, 2024 Anesthesia Post Procedure Vital Signs Vital Signs: Temp Pulse Pulse Pulse Resp BP BP 01/16/24 17:40 71 14 134/95 01/16/24 17:30 62 18 130/101 H 01/16/24 17:20 64 15 134/96 01/16/24 17:10 36.6 C 71 22 135/95 01/16/24 16:18 36.4 C L 72 18 133/93 01/16/24 16:13 88 14 125/93 01/16/24 13:44 36.4 C L 89 18 155/94 H Pulse Ox O2 Del Method O2 Flow Rate 01/16/24 17:40 100 Room Air 01/16/24 17:30 100 Room Air 01/16/24 17:20 97 Room Air 01/16/24 17:10 97 Oxymask 5 01/16/24 16:18 100 Room Air 01/16/24 16:13 96 Room Air 01/16/24 13:44 98 Room Air Pain Intensity Throat: Pain Intensity: 7 Transfer of Care Handoff Completed per policy Notes Mental Status: alert / awake / arousable Patient Amnestic to Procedure: Yes Nausea / Vomiting: adequately controlled Pain: adequately controlled Airway Patency, RR, SpO2: stable & adequate BP & HR: stable & adequate Hydration State: stable & adequate Anesthetic Complications: no major complications apparent
[2024-01-16] MEDS ORDERED: LORazepam 2 MG/1 ML VIAL IV PRN (18:50)
[2024-01-16] MEDS ORDERED: POLYETHYLENE (MIRALAX) 17 GM PACK PO PRN (18:50)
[2024-01-16] MEDS ORDERED: MoRPHine SULFATE 4 MG/ML 1 ML CARP\\VIAL IV PRN (18:50)
[2024-01-16] MEDS ORDERED: MoRPHine SULFATE 2 MG/ML CARP IV PRN (18:50)
[2024-01-16] MEDS: FAMOTIDINE 20MG IV PUSH 20 MG/5 ML SYR IV SCH (20:26)
[2024-01-16] MEDS: SERTRALINE HCL 100 MG TABLET PO SCH (20:28)
[2024-01-16] MEDS: DIVALPROEX EXTENDED RELEASE 500 MG TAB PO SCH (20:28)
[2024-01-16] MEDS: levETIRAcetam 500 MG TAB PO SCH (20:28)
[2024-01-16] MEDS: MIRTAZAPINE TAB 15 MG TAB PO SCH (20:28)
[2024-01-16] MEDS: risperiDONE 1 MG TABLET PO SCH (20:28)
[2024-01-17 07:04] LABS: Basophils # (auto) 0.03 K/uL (0.00-0.20); Basophils % (auto) 0.5 %; Eosinophils # (auto) 0.25 K/uL (0.00-0.50); Eosinophils % (auto) 4.5 %; Hematocrit (blood only) 39.5 % (42.0-52.0); Hemoglobin 14.2 g/dl (14.0-18.0); Immature Granulocytes # (auto) 0.01 K/uL (0.01-0.20); Immature Granulocytes % (auto) 0.2 %; Lymphocytes # (auto) 1.98 K/uL (1.20-3.40); Lymphocytes % (auto) 35.5 %; Mean Corpuscular Hemoglobin 33.2 pg (25.0-34.0); Mean Corpuscular Hgb Conc 35.9 g/dL (32.0-36.0); Mean Corpuscular Volume 92.3 fL (80.0-100.0); Monocytes # (auto) 0.46 K/uL (0.11-0.59); Monocytes % (auto) 8.2 %; Neutrophils # (auto) 2.85 K/uL (1.40-6.50); Neutrophils % (auto) 51.1 %; Platelet Count 339 K/uL (130-400); RDW Standard Deviation 40.5 fL (36.4-46.3); Red Blood Count 4.28 M/uL (4.70-6.10); White Blood Count 5.58 K/ul (4.8-10.8)
[2024-01-17 07:19] LABS: BUN Creatinine Ratio 12.6 (10-20); Calcium 9.3 mg/dl (8.6-10.3); Potassium 4.6 mmol/L (3.5-5.1)
[2024-01-17] MEDS: ACETAMINOPHEN 325 MG TAB PO PRN (08:17)
[2024-01-17] MEDS: PANTOprazole 40 MG TAB PO SCH (08:18)
--- NOTE | 2024-01-17 09:36 | Gastroenterology Progress Note ---
<Statement entered by Rafa Jewell MD - 01/17/24 13:56> I personally saw and examined the patient. I have reviewed the chart and agree with the documentation provided by the OUTDOOR LANDSCAPE ARCHITECT including discussion about the assessment, treatment and plan. Briefly, 33 year old admitted for foreign body ingestion s/p EGD for retrieval, serial KUBs to follow other ingested foreign bodies that were passed the stomach at time of EGD yesterday. The large pain is gone. He still has a pen tip and 2 batteries from November that are still remaining. They have migrated a little bit. He is chronically constipated and not obstructed. Give him a suppository today to start his bowel movements and later tonight he needs GoLytely prep. Please get another KUB in a.m. so we can follow where his foreign bodies are. The good news is they are past the ileocecal valve. Date of Service January 17, 2024 Assessment & Plan (1) Foreign body ingestion: Plan: 33 year old admitted for foreign body ingestion s/p EGD for retrieval, serial KUBs to follow other ingested foreign bodies that were passed the stomach at time of EGD yesterday. Follow KUB Consider Golytely today if KUB w/ persisted foreign bodies Thank you for allowing us to participate in the care of this patient. Please call with any acute changes, questions or concerns. Please see addendum below with additional recommendation from my supervising physician. I spent a total of 40 minutes on the date of service in review of patient's record, and previously obtained information in person and appropriate medical visit, discussion and education of plan, with patient and/or caregiver, placing orders for tests/referral/procedures as medically necessary and documentation of pertinent clinical information in patient's medical records for their visit today. Admission and Anticipated Discharge Date Admission Date: January 16, 2024 Subjective S/P EGD for foreign body ingestion. Serial KUB to follow passage of other ingested foreign bodies. Reports cramping in lower abd this AM. No BM today. Review of Systems Review of Systems: All other findings negative except as noted in HPI. Physical Exam Constitutional: well developed and well nourished; no acute distress Respiratory: normal respiratory effort Cardiovascular: Rate/Rhythm: regular rate Gastrointestinal (Abdomen): Inspection/Auscultation: normal bowel sounds Percussion/Palpation: abdomen soft; abdomen nontender, no guarding and abdomen not rigid Skin: no rashes, warm and dry Results & Data Results & Data Vital Signs (Past 12 Hours) Vital Signs Temp Pulse Pulse Pulse Resp BP Pulse Ox 01/17/24 07:13 74 01/17/24 06:56 36.7 C 80 17 115/74 94 01/17/24 03:10 36.7 C 76 16 104/68 98 01/16/24 22:40 36.6 C 95 H 16 104/63 93 O2 Del Method 01/17/24 07:13 01/17/24 06:56 Room Air 01/17/24 03:10 Room Air 01/16/24 22:40 Room Air Laboratory Results 01/17/24 01/16/24 01/16/24 Range/Units 06:31 Unknown 15:40 WBC 5.58 5.29 (4.8-10.8) K/ul RBC 4.28 L 4.53 L (4.70-6.10) M/uL Hgb 14.2 14.6 (14.0-18.0) g/dl Hct 39.5 L 42.0 (42.0-52.0) % MCV 92.3 92.7 (80.0-100.0) fL MCH 33.2 32.2 (25.0-34.0) pg MCHC 35.9 34.8 (32.0-36.0) g/dL RDW Std Deviation 40.5 40.9 (36.4-46.3) fL RDW Coeff of James 12.0 11.9 (11.5-14.5) % Plt Count 339 339 (130-400) K/uL MPV 9.0 L 8.8 L (9.4-12.4) fL Immature Gran % (Auto) 0.2 0.4 % Neut % (Auto) 51.1 64.7 % Lymph % (Auto) 35.5 25.3 % Yuba % (Auto) 8.2 6.6 % Eos % (Auto) 4.5 2.8 % Baso % (Auto) 0.5 0.2 % Neut # (Auto) 2.85 3.42 (1.40-6.50) K/uL Lymph # (Auto) 1.98 1.34 (1.20-3.40) K/uL [place]uba # (Auto) 0.46 0.35 (0.11-0.59) K/uL Eos # (Auto) 0.25 0.15 (0.00-0.50) K/uL Baso # (Auto) 0.03 0.01 (0.00-0.20) K/uL Immature Gran # (Auto) 0.01 0.02 (0.01-0.20) K/uL Sodium 139 137 (136-145) mmol/L Potassium 4.6 4.1 (3.5-5.1) mmol/L Chloride 103 100 (98-107) mmol/L Carbon Dioxide 31 29 (21-32) mmol/L Anion Gap 5 8 (3-11) BUN 13 10 (6-23) mg/dl Creatinine 1.03 D 0.63 (0.6-1.4) mg/dl Est Cr Clr Drug Dosing 103.0 168.3 ml/min eGFR 98.98 129.61 BUN/Creatinine Ratio 12.6 15.9 (10-20) Glucose 102 H 125 H (70-99(Fasting)) mg/dl Calcium 9.3 9.6 (8.6-10.3) mg/dl Magnesium 2.0 (1.7-2.4) mg/dl Total Bilirubin 0.5 (0.2-1.0) mg/dl AST 17 (13-39) U/L ALT 16 (7-52) U/L Alkaline Phosphatase 59 (34-104) U/L Total Protein 7.4 (6.0-8.3) gm/dl Albumin 4.9 (3.4-5.0) gm/dl Globulin 2.5 (2.5-4.0) gm/dl Albumin/Globulin Ratio 2.0 (0.9-2) Lipase 18 (11-82) U/L Urine Color Yellow Urine Appearance Clear (Clear) Urine pH 7.0 (4.5-7.5) Ur Specific [place] 1.003 (1.000-1.030) Urine Protein Negative (Negative) Urine Glucose (UA) Negative (Negative) Urine Ketones Negative (Negative) Urine Blood Negative (Negative) Urine Nitrite Negative (Negative) Urine Bilirubin Negative (Negative) Urine Urobilinogen Negative (Negative) Ur Leukocyte Esterase Negative (Negative) Nasal Screen MRSA (PCR) Negative (Negative) PG Care Time/CCT Total # of Minutes Spent Total Time Spent with Patient: Total time spent is greater than 50% in coordination of care (as documented) at patient's floor/unit and/or counseling patient: Coding Level of Care Code 08116 SUB INP/OBS CARE 2/35MIN Diagnoses Foreign body ingestion T18.9XXA Encounter type: initial encounter (1) Foreign body ingestion Encounter type: initial encounter Qualified Code(s): T18.9XXA - Foreign body of alimentary tract, part unspecified, initial encounter
[2024-01-17] MEDS: MAGNESIUM CITRATE 296 ML/BTL PO STA (10:03)
--- NOTE | 2024-01-17 11:52 | XRay Report ---
XR KUB/Abdomen 1 view CLINICAL HISTORY: foreign body ingestion TECHNIQUE: 1 view of the abdomen was obtained. Comparison: Comparison is made to abdomen radiograph 01/16/2024 FINDINGS: Interval migration of the batteries in the region of the ascending colon. One of the smaller foreign body is is no longer seen, another projects over the ileocecal junction. The osseous structures are g rossly unremarkable. The bowel gas pattern is nonobstructive. A moderate amount of stool is noted wit hin the large bowel. IMPRESSION: Interval excretion of 1 radiodensity compatible with the tip of a pen. Another pen tip remains. Batte king remain projecting over the cecum. ACT 112: Negative or not required by law. Electronically signed by: Speedy Schofield M.D. 01/17/2024 11:50 AM
--- NOTE | 2024-01-17 14:14 | Psychiatric Consultation ---
Date of Consultation January 17, 2024 Impression / Recommendations Impression 33 yo transgender woman, prefers she/her pronouns, an inmate at [facility] [place] with a history of foreign body ingestions admitted for foreign body ingestion. Psychiatry consulted for recommendations for hallucinations. Diagnostically consistent with unspecified psychosis-suspect an aspect of cluster B personality disorder in which psychotic features come out with heightened emotional distress vs 2/2 complex PTSD. Primary psychotic disorder seems unlikely as based on presentation today there was no evidence for overt psychosis, no signs of responding to internal stimuli, no thought disorganization, no behavioral disorganization, no thought blocking but reports chronic intermittent hallucinations. Option to increase HS risperidone dose to further target these hallucinations vs internal thoughts but given suspicion for component of personality disorder this is less likely to offer any benefit. Concern of making a medication change is lack of information regarding current treatment plans and approach by clinicians at [facility], what medications are available at [facility] and for which acute changes could be counter-therapeutic. They should remain on suicide precautions with one-on-one and guards present p ending [facility]/usp safety protocols until evaluated by their treating clinicians there. There are not a candidate for inpatient psychiatric care as they are an inmate and any forensic referrals would be at the discretion of the [facility]. Unfortunately prisoners ingest or self injure with items for a variety of reasons, many of which include secondary gain or attempts to manipulate their environment. It's counter-therapeutic to involve multiple psychiatric providers due to splitting. Hospitalist may reach out if additional specific questions regarding their care. Liaison remains available should an acute behavioral management issue arise while hospitalized (code ulloa). Generally goals for management of ingestion of foreign bodies in individuals during incarceration include: -Minimizing reinforcement, treat medical concerns promptly will goals of returning to [facility] once medically stable Overall, I spent a total of 45 minutes with this case including review of chart records, review of labwork, review of EKG QTc, direct evaluation of the patient at bedside, counseling the patient, discussion of the patient with the hospitalist provider, discussion with the psychiatric liason during clinical rounds and documentation in the electronic health record. (1) Foreign body ingestion: Encounter type: initial encounter Qualified Code(s): T18.9XXA - Foreign body of alimentary tract, part unspecified, initial encounter (2) Suicidal ideation: (3) Hallucinations: Plan -Suicide precautions with 1-on-1 at discretion of hospitalist as guards will also be present at bedside and can return to [facility] on suicide precautions pending further evaluation there. -Consider increasing risperidone to 2mg HS if hallucinations worsen and/or acute symptoms of psychosis emerge Psych History Identifying Data 33 transgender woman, prefers she/her pronouns, an inmate at [facility] [place] with a history of foreign body ingestions admitted for foreign body ingestion. Psychiatry consulted for recommendations for hallucinations. Chief Complaint "It's hard to be stable when I hate myself". History of Present Illness Rachele describes recent battery ingestion and new ingestion of a pen due to ongoing distress related to her gender identity and desire to be diagnosed with gender dysphoria in order to be able to be started on hormone replacement therapy. She states that she has been meeting with the retirement psychiatrist related to this diagnosis but hasn't been given this yet officially nor cleared to start HRT as she needs to remain psychiatrically stable for a period of time. States that she hears a male voice which tells her to harm herself which gets louder and more frequent when she's experiencing negative emotions. Today reports ongoing intermittent hallucination of this voice. Due to this continues to have intermittent thoughts for self-harm and suicide. However, she also describes future-orientation related to desire to continue gender transition process. She thinks risperidone does sometimes help with the voice, the voice is often worse at night. Allergies Allergy/AdvReac Type Severity Reaction Status Date / Time Penicillins Allergy Intermediate Rash Verified 12/21/23 12:02 trazodone AdvReac Intermediate Anxiety Verified 12/21/23 12:02 Home Medications Medication Instructions Recorded Confirmed Type Depakote ER 500 mg PO BID 12/21/23 01/17/24 History levetiracetam 500 mg tablet 1,500 mg PO BID 12/21/23 01/17/24 History mirtazapine 30 mg PO HS 12/21/23 01/17/24 History risperidone 1 mg tablet 1 mg PO BID 12/21/23 01/17/24 History sertraline 100 mg tablet 100 mg PO HS 12/21/23 01/17/24 History pantoprazole 40 mg tablet,delayed 40 mg PO DAILY 30 days #30 tabs 12/22/23 01/17/24 Rx release polyethylene glycol 3350 17 gram 17 g PO DAILY PRN laxative effect 12/22/23 01/17/24 Rx oral powder packet (Miralax) 30 days #30 ea Patient History Medical History Tobacco abuse Anemia Suicidal ideation hx/o Ingestion of foreign body Seizure Encounter for pre-operative examination Surgical History H/O esophagogastroduodenoscopy Social History Smoking Status: Former smoker Tobacco Type: Cigarettes and E-cigarettes / Vaping Second Hand Exposure: No; Do You Dip or Chew Tobacco: No; Hx Alcohol Use: No Hx Substance Use: Yes Last Used Substance: Unknown Preferred Language: Lithuanian Communication Ability: Effective Rn Acute Care Required: No Beliefs That Will Affect Care: None Current Living Situation: Other Current Living Situation Comment: Correctional facility Other Information That Helps Us Care for You: No Feels Safe at Home: Yes Safety Concerns: Feels Safe At This Time Gender Identity: Female Assistive Devices: None Physical Exam Psychiatric: Orientation: alert and oriented x 3 Apperance: appropriately dressed and appropriately groomed Eye Contact: good eye contact Motor Behavior: no abnormal motor movements Speech: normal rate/rhythm/volume of speech Affect: + constricted affect Mood: + depressed mood Thought Process: goal directed thought process Thought Content: reality based without delusions Suicidal Thoughts: denies suicidal thoughts Homicidal Thoughts: denies homicidal thoughts Hallucinations: + auditory hallucinations; no v isual hallucinations Cognition: attention grossly intact and language grossly intact Estimated Intelligence: consistent with education level Insight: + limited insight Judgment: + poor judgement Vital Signs (Past 24 Hours): Last Vital Signs Temp 36.7 C 01/17/24 06:56 Pulse 84 01/17/24 11:31 Resp 18 01/17/24 11:31 BP 120/84 01/17/24 11:31 Pulse Ox 97 01/17/24 11:31 O2 Del Method Room Air 01/17/24 11:31 O2 Flow Rate 5 01/16/24 17:10 Results & Data (PSY) Medications Administered Acetaminophen (Acetaminophen 325 Mg Tab) 650 mg PO Q4H PRN PRN Reason: Pain or Fever Stop: 02/15/24 18:49 Last Admin: 01/17/24 12:49 Dose: 650 mg Documented By: Admin: 01/17/24 08:17 Dose: 650 mg Documented By: JASWINDER Divalproex Sodium (Divalproex Extended Release 500 Mg Tab) 500 mg PO BID AIDEN Stop: 02/15/24 20:59 Last Admin: 01/17/24 08:18 Dose: 500 mg Documented By: Admin: 01/16/24 20:28 Dose: 500 mg Documented By: JAQUELINE Famotidine (Pepcid 20mg Iv Push) 20 mg in 5 mls @ 2.5 mls/min IV Q12H AIDEN Stop: 02/15/24 19:29 Last Admin: 01/17/24 08:18 Dose: 2.5 mls/min Documented By: Admin: 01/16/24 20:26 Dose: 2.5 mls/min Documented By: JAQUELINE Levetiracetam (Levetiracetam 500 Mg Tab) 1,500 mg PO BID AIDEN Stop: 02/15/24 20:59 Last Admin: 01/17/24 08:18 Dose: 1,500 mg Documented By: Admin: 01/16/24 20:28 Dose: 1,500 mg Documented By: JAQUELINE Mirtazapine (Mirtazapine Tab 15 Mg Tab) 30 mg PO HS AIDEN Stop: 02/15/24 20:59 Last Admin: 01/16/24 20:28 Dose: 30 mg Documented By: JAQUELINE Pantoprazole Sodium (Pantoprazole 40 Mg Tab) 40 mg PO DAILY AIDEN Stop: 02/16/24 08:59 Last Admin: 01/17/24 08:18 Dose: 40 mg Documented By: JASWINDER Risperidone (Risperidone 1 Mg Tablet) 1 mg PO BID AIDEN Stop: 02/15/24 20:59 Last Admin: 01/17/24 08:18 Dose: 1 mg Documented By: Admin: 01/16/24 20:28 Dose: 1 mg Documented By: JAQUELINE Sertraline HCl (Sertraline Hcl 100 Mg Tablet) 100 mg PO HS AIDEN Stop: 02/15/24 20:59 Last Admin: 01/16/24 20:28 Dose: 100 mg Documented By: JAQUELINE Coding Level of Care Code 91949 IN/OBS CONSULT LVL 3,45M Diagnoses Foreign body ingestion T18.9XXA Encounter type: initial encounter Suicidal ideation R45.851 Hallucinations R44.3
--- NOTE | 2024-01-17 15:41 | Hospitalist Progress Note ---
Date of Service January 17, 2024 Assessment & Plan (1) Foreign body ingestion: (2) Suicidal ideation: (3) Schizoaffective disorder: (4) Transgender: Plan Jh Bravo) is a 33 year transgender male that identifies as a female. She had an EGD for foreign body disimpaction, FlexPen was able to be removed however there were multiple erosions noted. No perforation or complications at time of procedure. Patient does have remaining 2 batteries projecting over the cecum despite taking MiraLAX 3 times daily. Per discussion with GI is recommended to be on clear liquids tonight. Do not want to have on a prep tonight due to removal of pen today and erosions however will need to be placed on a GI prep tomorrow and may need follow-up colonoscopy for battery removal as these are at high risk of eventual breakdown if not passed. Foreign body ingestion: Acute Confirmed ingested 2 sporks and a flexipen. Additionally with recent AAA x 2 battery ingestion in the prior month S/p foreign body removal by EGD 01/16/2024 Clear liquids tonight KUB Interval excretion of 1 radiodensity compatible with the tip of a pen. Another pen tip remains. Batteries remain projecting over the cecum. Continue H2 abhijit IV twice daily Magnesium citrate given today without BM Dulcolox 10 mg CO once Order Golytely prep 1 gallon; Administer 1/2 today and GI will reassess in AM Tylenol for pain PRN Schizoaffective disorder: Suicidal ideation: H/O mood disorder, auditory hallucinations, command hallucinations Continues to endorses ongoing auditory hallucinations that tell her to kill herself. Denies SI HI but endorses compulsive auditory hallucinations. Safe tray, psychiatry consulted, one-to-one Continue sertraline, risperidone Psych eval patient today; option to increase scheduled risperidone to 2mg HS though this may also re-enforce splitting of providers. For now, leave psych meds as is. History of seizure disorder: Continue Keppra, Depakote No seizures since February 2023 Ativan rescue on-call if needed Disposition: PCP: SANJEEV Farley Code Status: Full VTE Prophylaxis: Lovenox SQ I spent a total of 56 minutes coordinating, documenting, and providing care for this patient excluding time spent in the performance of separately billed services. All of the aforementioned completed while collaborating with the assigned attending physician for a full treatment plan. Please see their addendum for further details. Admission and Anticipated Discharge Date Admission Date: January 16, 2024 Supervising Physician Co-Signing Physician Notes I have seen and discussed the case with the collaborating advanced practitioner. I agree with the above PN. I have reviewed and confirmed the patients medical history, the findings on physical examination, and the patients diagnosis and treatment plan with Ani RIVERO and agree with the information documented. Plan to start golytely to help pass triple AAA batteries I spent a total of 5 minutes coordinating, documenting, and providing care for this patient excluding time spent in the performance of separately billed services. All of the aforementioned completed outside of collaborating with the assigned advanced practitioner for a full treatment plan. I have reviewed the advanced practitioner's documentation, and I agree with, and take responsibility for the plan of care Lesley Jeffrey is laying in her hospital bed in no apparent distress; however, throughout the day as the patient has taken Mg+Citrate, felt that her pain has worsened. Pt denies HOOKS, dizziness, SOB, chest pain. distended abdomen with tenderness on right side pain with palpation see a/p for further details Review of Systems Review of Systems: Neuro: (-) Falls, trauma, slurred speech HEENT: (-) HOOKS, dizziness, dysphagia, visual or auditory changes CV: (-) CP, palpitations, swelling Resp: (-) SOB GI: (-) appetite changes, N/V/D, bowel changes : (-) urinary changes Skin: (-) rashes Psych: (-) anxiety, depression Physical Exam Physical Exam: Neuro: AAOx4, PERRLA, no aphagia, memory changes, CNII-XII grossly intact HEENT: head normocephalic, moist mucus membranes CV: S1/S2, (-) M/G/R, (-) edema, cap refill < 3 seconds Resp: Lungs CTA in all rogers. On RA GI: Abdomen S/NT/ND, Ax4 bowel sounds, (-) CVA tenderness Musculoskeletal: 5/5 B/L UE strength, 5/5 B/L LE strength. No gait disturbance Skin: (-) rashes , (-) erythema. Psych: euthymic mood Results & Data Results & Data Vital Signs (Past 12 Hours) Vital Signs Temp Pulse Pulse Resp BP Pulse Ox O2 Del Method 01/17/24 15:22 36.7 C 65 18 110/73 96 Room Air 10/15/24 11:31 84 18 120/84 97 Room Air 01/17/24 07:13 74 01/17/24 06:56 36.7 C 80 17 115/74 94 Room Air (1) Foreign body ingestion Encounter type: initial encounter Qualified Code(s): T18.9XXA - Foreign body of alimentary tract, part unspecified, initial encounter
[2024-01-17] MEDS: bisacodyL 10 MG SUPP PR STA (16:45)
[2024-01-17] MEDS: LAVAGE SOLUTION 4000ML PO ONE (17:44)
--- NOTE | 2024-01-18 07:08 | Hospitalist Progress Note ---
Date of Service January 18, 2024 Assessment & Plan (1) Foreign body ingestion: (2) Suicidal ideation: (3) Schizoaffective disorder: (4) Transgender: Plan Jh Bravo) is a 33 year transgender male that identifies as a female. She had an EGD for foreign body disimpaction, FlexPen was able to be removed however there were multiple erosions noted. No perforation or complications at time of procedure. Patient does have remaining 2 batteries projecting over the cecum despite taking MiraLAX 3 times daily. Per discussion with GI is recommended to be on clear liquids tonight. Do not want to have on a prep tonight due to removal of pen today and erosions however will need to be placed on a GI prep tomorrow and may need follow-up colonoscopy for battery removal as these are at high risk of eventual breakdown if not passed. Foreign body ingestion: Acute Confirmed ingested 2 sporks and a flexipen. Additionally with recent AAA x 2 battery ingestion in the prior month S/p foreign body removal by EGD 01/16/2024 KUB Interval excretion of 1 radiodensity compatible with the tip of a pen. Another pen tip remains. Batteries remain projecting over the cecum. Continue H2 abhijit IV twice daily Magnesium citrate given 01/15 without BM Dulcolox 10 mg [place] once Golytely prep 1 gallon; Administer 1/2 gallon 01/16 2.5L liquid fecal matter evening of 01/16 Additional Golytely given 01/17 Repeat KUB 01/17 unchanged position of batteries GI following and advised to continue with bowel prep Tylenol for pain PRN NPO after MN Schizoaffective disorder: Suicidal ideation: H/O mood disorder, auditory hallucinations, command hallucinations Continues to endorses ongoing auditory hallucinations that tell her to kill herself. Denies SI HI but endorses compulsive auditory hallucinations. Safe tray, psychiatry consulted, one-to-one Continue sertraline, risperidone Psych eval patient 01/16; option to increase scheduled risperidone to 2mg HS though this may also re-enforce splitting of providers. For now, leave psych m eds as is. History of seizure disorder: Continue Keppra, Depakote No seizures since February 2023 Ativan rescue on-call if needed Disposition: PCP: SANJEEV Farley Code Status: Full VTE Prophylaxis: Lovenox SQ Ok for DC to correction once foreign materials have passed/been retrieved I spent a total of 56 minutes coordinating, documenting, and providing care for this patient excluding time spent in the performance of separately billed services. All of the aforementioned completed while collaborating with the assigned attending physician for a full treatment plan. Please see their addendum for further details. Admission and Anticipated Discharge Date Admission Date: January 16, 2024 Supervising Physician Co-Signing Physician Notes I have seen and examined the patient at bedside. Discussed the case with the collaborating advanced practitioner. I agree with the documentation as above. I have reviewed and confirmed the patients medical history, the findings on physical examination, and the patients diagnosis and treatment plan with Ani RIVERO and agree with the information documented. Note has been edited as needed. Continues to complain of right-sided abdominal pain Unable to pass batteries although had bowel movement today Continue Golytely Defer possible sigmoidoscopy to GI Repeat KUB in a.m. Subjective Pt lying in her hospital bed in no apparent distress. Abdomen reportedly less firm and tender today. Patient has not passed batteries or pen yet; however, passed liquid stool over past 24 hours 2.5L truncal hives noted this AM; circumferential abdomen and on back. No new medications outside of Dulcolox + GoLytely prep Pt denies fevers, chills, HOOKS, dizziness, chest pain, SOB, abdominal firmness Please see A/P for further details. Review of Systems Review of Systems: Neuro: (-) Falls, trauma, slurred speech HEENT: (-) HOOKS, dizziness, dysphagia, visual or auditory changes CV: (-) CP, palpitations, swelling Resp: (-) SOB GI: (-) appetite changes, N/V/D, bowel changes : (-) urinary changes Skin: (+) hives on abdomen and back Psych: (-) anxiety, depression Physical Exam Physical Exam: Neuro: AAOx4, PERRLA, no aphagia, memory changes, CNII-XII grossly intact HEENT: head normocephalic, moist mucus membranes CV: S1/S2, (-) M/G/R, (-) edema, cap refill < 3 seconds Resp: Lungs CTA in all rogers. On RA GI: Abdomen S/NT/ND, Ax4 bowel sounds, (-) CVA tenderness Musculoskeletal: 5/5 B/L UE strength, 5/5 B/L LE strength. No gait disturbance Skin: (+) truncal hives; appears to be improving as the day progresses Psych: euthymic mood Results & Data Results & Data Vital Signs (Past 12 Hours) Vital Signs Temp Pulse Pulse Pulse Resp BP BP 01/18/24 03:39 01/18/24 02:59 36.6 C 71 18 145/91 H 01/17/24 22:25 36.6 C 77 17 110/70 01/17/24 22:17 69 01/17/24 19:15 36.8 C 55 L 16 120/84 Pulse Ox O2 Del Method 01/18/24 03:39 Room Air 01/18/24 02:59 97 Room Air 01/17/24 22:25 95 Room Air 01/17/24 22:17 01/17/24 19:15 95 Room Air Laboratory Results Short CBC 01/18/24 Range/Units 07:15 WBC 5.27 (4.8-10.8) K/ul Hgb 14.3 (14.0-18.0) g/dl Hct 40.5 L (42.0-52.0) % Plt Count 326 (130-400) K/uL BMP 01/18/24 07:15 Sodium 140 Potassium 4.3 Chloride 102 Carbon Dioxide 30 BUN 8 Creatinine 0.86 Glucose 90 Calcium 9.1 Diagnostic Findings KUB X-Ray 01/18/24 08:42 XR KUB/Abdomen 1 view CLINICAL HISTORY: injested foreign body TECHNIQUE: 1 view of the abdomen was obtained. Comparison: Comparison is made to abdomen radiograph 01/17/2024 FINDINGS: There is essentially unchanged position of metallic radiodensities as above. The osseous structures are grossly unremarkable. The bowel gas pattern is nonobstructive. A moderate amount of stool is noted within the large bowel. IMPRESSION: Essentially unchanged position of metallic radiodensities. ACT 112: Negative or not required by law. Electronically signed by: Speedy Schofield M.D. 01/18/2024 10:15 AM (1) Foreign body ingestion Encounter type: initial encounter Qualified Code(s): T18.9XXA - Foreign body of alimentary tract, part unspecified, initial encounter
[2024-01-18 07:32] LABS: Basophils # (auto) 0.05 K/uL (0.00-0.20); Basophils % (auto) 0.9 %; Eosinophils # (auto) 0.27 K/uL (0.00-0.50); Eosinophils % (auto) 5.1 %; Hematocrit (blood only) 40.5 % (42.0-52.0); Hemoglobin 14.3 g/dl (14.0-18.0); Immature Granulocytes # (auto) 0.01 K/uL (0.01-0.20); Immature Granulocytes % (auto) 0.2 %; Lymphocytes # (auto) 1.67 K/uL (1.20-3.40); Lymphocytes % (auto) 31.7 %; Mean Corpuscular Hemoglobin 32.4 pg (25.0-34.0); Mean Corpuscular Hgb Conc 35.3 g/dL (32.0-36.0); Mean Corpuscular Volume 91.8 fL (80.0-100.0); Mean Platelet Volume 8.7 fL (9.4-12.4); Monocytes # (auto) 0.47 K/uL (0.11-0.59); Monocytes % (auto) 8.9 %; Neutrophils % (auto) 53.2 %; Platelet Count 326 K/uL (130-400); RDW Coefficient of Variation 11.7 % (11.5-14.5); RDW Standard Deviation 39.4 fL (36.4-46.3); Red Blood Count 4.41 M/uL (4.70-6.10); White Blood Count 5.27 K/ul (4.8-10.8)
[2024-01-18 08:00] LABS: BUN Creatinine Ratio 9.3 (10-20); Calcium 9.1 mg/dl (8.6-10.3); Creatinine Clr Calc Pharmacy 123.3 ml/min; Potassium 4.3 mmol/L (3.5-5.1)
--- NOTE | 2024-01-18 09:39 | Gastroenterology Progress Note ---
<Statement entered by Rafa Jewell MD - 01/18/24 14:08> I personally saw and examined the patient. I have reviewed the chart and agree with the documentation provided by the LEAD ETL DEVELOPER including discussion about the assessment, treatment and plan. Briefly, she is feeling clinically better. Passed over 3 L in stool. Per the KUB, the batteries have not really changed position but she still has a ton of stool present on the KUB. I would continue the prep today and lets redo a serial KUB in a.m. Date of Service January 18, 2024 Assessment & Plan (1) Foreign body ingestion: Plan: - Await KUB to be done today. She may require further bowel prepping to help move foreign bodies. - continue with miralax. Admission and Anticipated Discharge Date Admission Date: January 16, 2024 Subjective Patient completed half of golytely last evening and had a few bowel movements. she did not pass any foreign body as far as she is aware. she still has lower abdominal cramping along with some nausea. no KUB yet this morning. no other concerns currently. Review of Systems Review of Systems: All systems reviewed & are unremarkable except as noted in HPI & below Physical Exam Constitutional: WD/WN, vitals as above Respiratory: normal respiratory effort, lungs clear to auscultation Cardiovascular: Rate/Rhythm: regular rate and regular rhythm Gastrointestinal (Abdomen): mild diffuse tenderness, no guarding, soft, normal bowel sounds. Psychiatric: Orientation: alert and oriented x 3 Results & Data Results & Data Vital Signs (Past 12 Hours) Vital Signs Temp Pulse Pulse Pulse Resp BP Pulse Ox 01/18/24 09:00 62 01/18/24 07:00 97.7 F 79 18 135/76 98 01/18/24 03:39 01/18/24 02:59 97.9 F 71 18 145/91 H 97 01/17/24 22:25 97.9 F 77 17 110/70 95 01/17/24 22:17 69 O2 Del Method 01/18/24 09:00 01/18/24 07:00 Room Air 01/18/24 03:39 Room Air 01/18/24 02:59 Room Air 01/17/24 22:25 Room Air 01/17/24 22:17 Coding Level of Care Code 78729 SUB INP/OBS CARE 04/28MIN Diagnoses Foreign body ingestion T18.9XXA Encounter type: initial encounter (1) Foreign body ingestion Encounter type: initial encounter Qualified Code(s): T18.9XXA - Foreign body of alimentary tract, part unspecified, initial encounter
[2024-01-18] MEDS: POLYETHYLENE (MIRALAX) 17 GM PACK PO SCH (10:10)
--- NOTE | 2024-01-18 10:16 | XRay Report ---
XR KUB/Abdomen 1 view CLINICAL HISTORY: injested foreign body TECHNIQUE: 1 view of the abdomen was obtained. Comparison: Comparison is made to abdomen radiograph 01/17/2024 FINDINGS: There is essentially unchanged position of metallic radiodensities as above. The osseous structures a re grossly unremarkable. The bowel gas pattern is nonobstructive. A moderate amount of stool is noted within the large bowel. IMPRESSION: Essentially unchanged position of metallic radiodensities. ACT 112: Negative or not required by law. Electronically signed by: Speedy Schofield M.D. 01/18/2024 10:15 AM
[2024-01-18] MEDS: LAVAGE SOLUTION 4000ML PO ONE (13:04)
[2024-01-19] MEDS ORDERED: FAMOTIDINE 20MG IV PUSH 20 MG/5 ML SYR IV STA (06:46)
[2024-01-19 07:30] LABS: Basophils # (auto) 0.03 K/uL (0.00-0.20); Basophils % (auto) 0.2 %; Eosinophils # (auto) 0.11 K/uL (0.00-0.50); Eosinophils % (auto) 0.9 %; Hemoglobin 14.2 g/dl (14.0-18.0); Immature Granulocytes # (auto) 0.04 K/uL (0.01-0.20); Immature Granulocytes % (auto) 0.3 %; Lymphocytes # (auto) 1.05 K/uL (1.20-3.40); Lymphocytes % (auto) 8.7 %; Mean Corpuscular Hemoglobin 32.9 pg (25.0-34.0); Mean Corpuscular Hgb Conc 36.4 g/dL (32.0-36.0); Mean Corpuscular Volume 90.5 fL (80.0-100.0); Monocytes # (auto) 0.66 K/uL (0.11-0.59); Monocytes % (auto) 5.5 %; Neutrophils # (auto) 10.19 K/uL (1.40-6.50); Neutrophils % (auto) 84.4 %; Platelet Count 309 K/uL (130-400); RDW Coefficient of Variation 11.6 % (11.5-14.5); RDW Standard Deviation 38.7 fL (36.4-46.3); Red Blood Count 4.31 M/uL (4.70-6.10); White Blood Count 12.08 K/ul (4.8-10.8)
[2024-01-19 07:45] LABS: BUN Creatinine Ratio 15.7 (10-20); Calcium 9.1 mg/dl (8.6-10.3); Creatinine Clr Calc Pharmacy 151.5 ml/min; Potassium 3.9 mmol/L (3.5-5.1)
--- NOTE | 2024-01-19 10:39 | Gastroenterology Progress Note ---
<Statement entered by Rafa Jewell MD - 01/19/24 13:07> I personally saw and examined the patient. I have reviewed the chart and agree with the documentation provided by the OFFICE MACHINE PUNCH OPERATOR including discussion about the assessment, treatment and plan. Briefly, status post 3 days of mag citrate and Colyte without passing the batteries. The material and foreign objects are still in the ascending colon on the KUB. At this point we will plan for a colonoscopy after a full prep today in the morning. N.p.o. after midnight please go ahead and give another set of GoLytely today. We will see the patient tomorrow for a colonoscopy. Date of Service January 19, 2024 Assessment & Plan (1) Foreign body ingestion: Plan: Patient has still not passed the foreign bodies that were swallowed. I had discussed this case with nursing as well as Dr. Jewell. - will plan for another golytely prep this evening. - we had discussed a colonoscopy. If foreign bodies have still not passed by tomorrow morning, patient is agreeable to a colonoscopy to attempt retrieval. Admission and Anticipated Discharge Date Admission Date: January 16, 2024 Subjective Patient had completed the whole golytely prep yesterday per nursing. Passed stool but no foreign objects. On KUB images today, these appear unchanged, but official report is pending. Patient reports RUQ pain, but otherwise, no nausea, vomiting, reflux. Review of Systems Review of Systems: All systems reviewed & are unremarkable except as noted in HPI & below Physical Exam Constitutional: WD/WN, vitals as above Respiratory: normal respiratory effort, lungs clear to auscultation Cardiovascular: Rate/Rhythm: regular rate and regular rhythm Gastrointestinal (Abdomen): mild RUQ tenderness, no guarding, soft, normal bowel sounds. Psychiatric: Orientation: alert and oriented x 3 Results & Data Results & Data Vital Signs (Past 12 Hours) Vital Signs Temp Pulse Pulse Pulse Resp BP BP 01/19/24 06:09 74 122/74 01/19/24 02:51 60 01/19/24 02:27 97.7 F 67 18 112/65 01/18/24 22:42 97.9 F 63 18 118/72 Pulse Ox O2 Del Method 01/19/24 06:09 99 Room Air 01/19/24 02:51 01/19/24 02:27 100 Room Air 01/18/24 22:42 96 Room Air PG Care Time/CCT Total # of Minutes Spent Total Time Spent with Patient: Total time for today's encounter has met or exceeded 35 minutes which includes reviewing records, discussion of case with nursing, face to face visit, discussion with Dr. Jewell, as well as record documentation on date of encounter. Coding Level of Care Code 40242 SUB INP/OBS CARE 2/35MIN Diagnoses Foreign body ingestion T18.9XXA Encounter type: initial encounter (1) Foreign body ingestion Encounter type: initial encounter Qualified Code(s): T18.9XXA - Foreign body of alimentary tract, part unspecified, initial encounter
[2024-01-19] MEDS ORDERED: LAVAGE SOLUTION 4000ML PO ONE (11:00)
--- NOTE | 2024-01-19 11:26 | XRay Report ---
KUB CLINICAL HISTORY: Foreign body ingestion COMPARISON STUDY: KU January 18, 2024. FINDINGS: A 1.3 cm linear metallic density projects over the cecum. 2 batteries project over the prox imal ascending colon. Slight distal migration is noted since prior exam. No new radiopaque foreign candy dies are identified. There is no evidence for a bowel obstruction. IMPRESSION: 1. Two batteries, likely within the proximal ascending colon. 2. Additional linear metallic foreign body likely reflecting a portion of a pen, projecting over the cecum. 3. No new radiopaque foreign bodies. ACT 112: Negative or not required by law. Electronically signed by: Trung Spear M.D. 01/19/2024 11:25 AM
--- NOTE | 2024-01-19 13:49 | Hospitalist Progress Note ---
Date of Service January 19, 2024 Assessment & Plan (1) Foreign body ingestion: (2) Suicidal ideation: (3) Schizoaffective disorder: (4) Transgender: Plan Jh Bravo) is a 33 y/o transgender male that identifies as a female who presented to the ED after ingesting 2 sporks and 1 FlexPen. Was previously admitted 12/21/23-12/22/23 after she swallowed 2 AA batteries and 2 FlexPens. She had an EGD for foreign body disimpaction done at that time and both FlexPens were able to be removed. Patient does have remaining 2 batteries however that were thought to be able to pass on their own. Patient had an EGD for foreign body disimpaction on 01/16/2024 --> FlexPen was able to be removed however there were multiple erosions noted. No perforation or complications at time of procedure. However patient was noted to still have 2 remaining AA batteries projecting over the cecum despite taking MiraLAX 3 times daily. Foreign Body Ingestion: Acute --> Confirmed that she ingested 2 sporks and a FlexPen. Additionally with recent AAA x 2 battery ingestion in the prior month. S/p foreign body removal by EGD on 01/16/2024. KUB today shows 2 AA batteries in the proximal ascending colon and an additional metallic foreign body likely reflecting a portion of a pen projecting over the cecum. Continue IV H2 abhijit twice daily. S/p 3 days of magnesium citrate + Golytely without passing the batteries. Plan for patient to undergo colonoscopy tomorrow AM to attempt retrieval. NPO after midnight. Another set of Golytely this afternoon. H/O Seizure Disorder: Continue Keppra, Depakote. No seizures since February 2023. Ativan rescue on-call if needed. Schizoaffective Disorder, Suicidal Ideation: H/O mood disorder, auditory hallucinations, command hallucinations. Denied any h allucinations this afternoon. Safe tray, psychiatry consulted, 1-on-1 for now. May be able to remove 1-on-1 tomorrow. Continue sertraline, risperidone. Psych evaluated the patient on 01/17/2024 --> "option to increase HS risperidone dose to further target these hallucinations vs internal thoughts but given suspicion for component of personality disorder this is less likely to offer any benefit." Will leave psych meds as is for now. DVT Prophylaxis: SQ Lovenox Code Status: FULL CODE PCP: [facility]EE[facility] Disposition: Admitted in PCU/Telemetry - OK to discharge patient back to [facility] once the foreign materials have passed/been removed and she is hemodynamically stable. Patient seen in collaboration with Dr. Wolf. Please see addendum. I spent a total of 40 minutes coordinating, documenting, and providing care for this patient excluding time spent in the performance of separately billed services. This included personally reviewing all current laboratories and imaging studies, medical reconciliation, outpatient chart review and discussion with specialists. This chart was completed in part utilizing Speech Voice Recognition Software. Grammatical errors, random word insertions, pronoun errors, and incomplete sentences are an occasional consequence of this system due to software limitations, ambient noise, and hardware issues. Any formal questions or concerns about the content, text, or information contained within the body of this dictation should be directly addressed to the provider for clarification. Admission and Anticipated Discharge Date Admission Date: January 16, 2024 Supervising Physician Co-Signing Physician Notes I have seen and examined the patient at bedside. Discussed the case with the collaborating advanced practitioner. I agree with the documentation as above. I have reviewed and confirmed the patients medical history, the findings on physical examination, and the patients diagnosis and treatment plan with Karon Stringer PA-C and agree with the information documented. Note has been edited as needed. Continues to complain of right-sided abdominal pain although no tenderness/voluntary guarding, abdomen soft on exam Unable to pass batteries although had bowel movement today Continue Golytely Clear liquid diet today PENSION CONSULTANT after midnight Plan for colonoscopy tomorrow Subjective She passed some stools last night however was unable to pass the batteries. Patient agreeable with undergoing colonoscopy tomorrow in order to retrieve the batteries. Review of Systems Review of Systems: At least ten systems reviewed and negative, except as noted in the subjective section. Physical Exam Physical Exam: General: WD/WN, vitals as above, NAD, sitting up in bed, pleasant, conversing appropriately. A+Ox3, euthymic affect. HEENT: Normocephalic, atraumatic. PERRL, conjunctivae normal, anicteric sclerae. External ear and nose normal, oropharynx normal. Respiratory: Normal respiratory effort, lungs clear to auscultation, no wheeze, rales, rhonchi. No accessory muscle use. Cardiovascular: Regular rate, rhythm, no murmur, normal peripheral pulses, no BLE edema. Vessels: No JVD. Abdomen/GI: Normal bowel sounds, soft, nontender, no hepatosplenomegaly. Extremities/Musculoskeletal: No cyanosis or clubbing, extremities motor strength intact, moves all extremities. Neurologic: EOMI, no focal deficits, CN's II-XI not formally tested but appear grossly intact bilaterally. Skin: No rashes, normal color, warm/dry. Results & Data Results & Data Vital Signs (Past 12 Hours) Vital Signs Temp Pulse Pulse Pulse Resp BP BP 01/19/24 11:01 37.3 C 65 17 97/60 L 01/19/24 06:09 74 122/74 01/19/24 05:41 72 01/19/24 02:51 60 01/19/24 02:27 36.5 C 67 18 112/65 Pulse Ox O2 Del Method 01/19/24 11:01 98 Room Air 01/19/24 06:09 99 Room Air 01/19/24 05:41 01/19/24 02:51 01/19/24 02:27 100 Room Air Laboratory Results Short CBC 01/19/24 Range/Units 06:53 WBC 12.08 H (4.8-10.8) K/ul Hgb 14.2 (14.0-18.0) g/dl Hct 39.0 L (42.0-52.0) % Plt Count 309 (130-400) K/uL BMP 01/19/24 06:53 Sodium 142 Potassium 3.9 Chloride 106 Carbon Dioxide 25 BUN 11 Creatinine 0.70 Glucose 71 Calcium 9.1 Diagnostic Findings KUB X-Ray 01/16/24 14:01 KUB CLINICAL HISTORY: foreign body ingestion COMPARISON STUDY: CT of the abdomen and pelvis December 17, 2023 and KUB January 12, 2024. FINDINGS: The bowel gas pattern is normal. There is a moderate amount of stool within the colon and rectum. 2 metallic foreign bodies consistent with batteries project over the cecum. These are similar in position to prior exam. 2 additional metallic foreign bodies measuring 1.1 cm are also noted. These are new since prior exam. IMPRESSION: 1. Two batteries which project over the cecum, similar position to prior KUB. 2. Interval ingestion of 2 additional linear metallic foreign bodies which measure 1.1 cm in length and represent portions of pens. 3. No evidence for a bowel obstruction. ACT 112: Negative or not required by law. Electronically signed by: Trung Spear M.D. 01/16/2024 2:53 PM KUB X-Ray 01/17/24 08:39 XR KUB/Abdomen 1 view CLINICAL HISTORY: foreign body ingestion TECHNIQUE: 1 view of the abdomen was obtained. Comparison: Comparison is made to abdomen radiograph 01/16/2024 FINDINGS: Interval migration of the batteries in the region of the ascending colon. One of the smaller foreign body is is no longer seen, another projects over the ileocecal junction. The osseous structures are grossly unremarkable. The bowel gas pattern is nonobstructive. A moderate amount of stool is noted within the large bowel. IMPRESSION: Interval excretion of 1 radiodensity compatible with the tip of a pen. Another pen tip remains. Batteries remain projecting over the cecum. ACT 112: Negative or not required by law. Electronically signed by: Speedy Schofield M.D. 01/17/2024 11:50 AM KUB X-Ray 01/18/24 08:42 XR KUB/Abdomen 1 view CLINICAL HISTORY: injested foreign body TECHNIQUE: 1 view of the abdomen was obtained. Comparison: Comparison is made to abdomen radiograph 01/17/2024 FINDINGS: There is essentially unchanged position of metallic radiodensities as above. The osseous structures are grossly unremarkable. The bowel gas pattern is nonobstructive. A moderate amount of stool is noted within the large bowel. IMPRESSION: Essentially unchanged position of metallic radiodensities. ACT 112: Negative or not required by law. Electronically signed by: Speedy Schofield M.D. 01/18/2024 10:15 AM KUB X-Ray 01/19/24 07:00 KUB CLINICAL HISTORY: Foreign body ingestion COMPARISON STUDY: KUB January 18, 2024. FINDINGS: A 1.3 cm linear metallic density projects over the cecum. 2 batteries project over the proximal ascending colon. Slight distal migration is noted since prior exam. No new radiopaque foreign bodies are identified. There is no evidence for a bowel obstruction. IMPRESSION: 1. Two batteries, likely within the proximal ascending colon. 2. Additional linear metallic foreign body likely reflecting a portion of a pen, projecting over the cecum. 3. No new radiopaque foreign bodies. ACT 112: Negative or not required by law. Electronically signed by: Trung Spear M.D. 01/19/2024 11:25 AM (1) Foreign body ingestion Encounter type: initial encounter Qualified Code(s): T18.9XXA - Foreign body of alimentary tract, part unspecified, initial encounter (3) Schizoaffective disorder Schizoaffective disorder type: unspecified Qualified Code(s): F25.9 - Schizoaffective disorder, unspecified
[2024-01-19] MEDS: LAVAGE SOLUTION 4000ML PO SCH (16:02)
[2024-01-19] MEDS: FAMOTIDINE 20MG IV PUSH 20 MG/5 ML SYR IV SCH (21:12)
--- NOTE | 2024-01-20 07:37 | Electrocardiogram Report ---
Test Reason : Blood Pressure : */* mmHG Vent. Rate : 56 BPM Atrial Rate : 56 BPM P-R Int : 116 ms QRS Dur : 90 ms QT Int : 436 ms P-R-T Axes : 76 51 67 degrees QTcB Int : 420 ms Sinus bradycardia Otherwise normal ECG When compared with ECG of 20-Dec-2023 18:48, Vent. rate has decreased by 27 bpm Confirmed by Jemal Wan ([id number]) on 01/20/2024 7:37:19 AM Referred By: [facility] Confirmed By: Jemal Wan
[2024-01-20 08:06] LABS: Hematocrit (blood only) 35.8 % (42.0-52.0); Hemoglobin 12.5 g/dl (14.0-18.0); Mean Corpuscular Hemoglobin 32.5 pg (25.0-34.0); Mean Corpuscular Hgb Conc 34.9 g/dL (32.0-36.0); Mean Platelet Volume 9.1 fL (9.4-12.4); Platelet Count 288 K/uL (130-400); RDW Coefficient of Variation 11.8 % (11.5-14.5); RDW Standard Deviation 39.7 fL (36.4-46.3); Red Blood Count 3.85 M/uL (4.70-6.10); White Blood Count 5.47 K/ul (4.8-10.8)
[2024-01-20 08:25] LABS: Calcium 8.8 mg/dl (8.6-10.3); Creatinine Clr Calc Pharmacy 168.3 ml/min; Magnesium 1.8 mg/dl (1.7-2.4); Phosphorus 3.1 mg/dl (2.5-4.9); Potassium 4.1 mmol/L (3.5-5.1)
--- NOTE | 2024-01-20 09:33 | History & Physical Bridge Note ---
<Statement entered by Rafa Jewell MD - 01/20/24 10:14> I personally saw and examined the patient. I have reviewed the chart and agree with the documentation provided by the SHOE CLEANER including discussion about the assessment, treatment and plan. Will plan for colon with snare and retrieval of foreign bodies. Date of Service January 20, 2024 History & Physical Bridge Note I have examined the patient, reviewed the History & Physical and in the interval since the performance of the History & Physical I have noted the following changes of clinical significance: no changes noted. patient finished prep. still has not passed foreign body. - will plan for colonoscopy today.
[2024-01-20] MEDS ORDERED: GLUCAGON FOR INJ 1 MG VIAL SQ PRN (09:44)
[2024-01-20] MEDS ORDERED: GLUCOSE 10 TAB/TUBE PO PRN (09:44)
[2024-01-20] MEDS ORDERED: GLUCOSE 40% GEL 15 GM TUBE PO PRN (09:44)
[2024-01-20] MEDS: DEXTROSE 50% 50 ML SYRINGE IV PRN (10:08)
--- NOTE | 2024-01-20 11:19 | Hospitalist Progress Note ---
Date of Service January 20, 2024 Assessment & Plan (1) Foreign body ingestion: (2) Suicidal ideation: (3) Schizoaffective disorder: (4) Transgender: Plan Jh Bravo) is a 33 y/o transgender male that identifies as a female who presented to the ED after ingesting 2 sporks and 1 FlexPen. Was previously admitted 12/21/23-12/22/23 after she swallowed 2 AAA batteries and 2 FlexPens. She had an EGD for foreign body disimpaction done at that time and both FlexPens were able to be removed. Patient does have remaining 2 batteries however that were thought to be able to pass on their own. Patient had an EGD for foreign body disimpaction on 01/16/2024 --> FlexPen was able to be removed however there were multiple erosions noted. No perforation or complications at time of procedure. However patient was noted to still have 2 remaining AA batteries projecting over the cecum despite taking MiraLAX 3 times daily. Foreign Body Ingestion: Acute --> Confirmed that she ingested 2 sporks and a FlexPen. Additionally with recent AA x 2 battery ingestion in the prior month. S/p foreign body removal by EGD on 01/16/2024 --> 2 sporks were removed. KUB yesterday showed 2 AA batteries in the proximal ascending colon and an additional metallic foreign body likely reflecting a portion of a pen projecting over the cecum. Continue IV H2 abhijit twice daily. S/p 4 days of magnesium citrate + Golytely without passing the batteries. Patient to have a colonoscopy done this afternoon with GI for attempted retrieval of the foreign bodies. Hypotension: BP 97/59 this morning, patient without dizziness or lightheadedness. Likely somewhat dehydrated. Spoke with Yenny Mehta RN via TT --> 500cc NSS bolus ordered. Plan to recheck BP this afternoon - monitor. H/O Seizure Disorder: Continue Keppra, Depakote. No seizures since February 2023. Ativan rescue on-call if needed. Schizoaffective Disorder, Suicidal Ideation: H/O mood disorder, auditory hallucinations, command hallucinations. Denied any hallucinations this afternoon. Sidney long, psychiatry consulted. Was 1-on-1 previously due to suicidal ideations; 1-on-1 removed this AM. Continue sertraline, risperidone. Psych evaluated the patient on 01/17/2024 --> "option to increase HS risperidone dose to further target these hallucinations vs internal thoughts but given suspicion for component of personality disorder this is less likely to offer any benefit." Will leave psych meds as is for now. DVT Prophylaxis: SQ Lovenox Code Status: FULL CODE PCP: ASNJEE[facility] Farley Disposition: Admitted in PCU/Telemetry - OK to discharge patient back to [facility] once the foreign materials have passed/been removed and she is hemodynamically stable. Patient seen in collaboration with Dr. Wolf. Please see addendum. I spent a total of 30 minutes coordinating, documenting, and providing care for this patient excluding time spent in the performance of separately billed services. This included personally reviewing all current laboratories and imaging studies, medical reconciliation, outpatient chart review and discussion with specialists. This chart was completed in part utilizing Speech Voice Recognition Software. Grammatical errors, random word insertions, pronoun errors, and incomplete sentences are an occasional consequence of this system due to software limitations, ambient noise, and hardware issues. Any formal questions or concerns about the content, text, or information contained within the body of this dictation should be directly addressed to the provider for clarification. Admission and Anticipated Discharge Date Admission Date: January 16, 2024 Subjective Last BM episode was this morning, she reports that it was almost clear in consistency. Still with some mild right-sided abdominal pain. Plan today is for her to undergo colonoscopy this afternoon at 16:30 for retrieval of the foreign bodies. Patient very eager to eat something. Review of Systems Review of Systems: At least ten systems reviewed and negative, except as noted in the subjective section. Physical Exam Physical Exam: General: WD/WN, vitals as above, NAD, laying down in bed, pleasant, conversing appropriately. A+Ox3, euthymic affect. HEENT: Normocephalic, atraumatic. PERRL, conjunctivae normal, anicteric sclerae. External ear and nose normal, oropharynx normal. Respiratory: Normal respiratory effort, lungs clear to auscultation, no wheeze, rales, rhonchi. No accessory muscle use. Cardiovascular: Regular rate, rhythm, no murmur, normal peripheral pulses, no BLE edema. Vessels: No JVD. Abdomen/GI: Normal bowel sounds, soft, nontender, no hepatosplenomegaly. Extremities/Musculoskeletal: No cyanosis or clubbing, extremities motor strength intact, moves all extremities. Neurologic: EOMI, no focal deficits, CN's II-XI not formally tested but appear grossly intact bilaterally. Skin: No rashes, normal color, warm/dry. Results & Data Results & Data Vital Signs (Past 12 Hours) Vital Signs Temp Pulse Pulse Resp BP Pulse Ox O2 Del Method 01/20/24 11:15 36.9 C 65 19 97/59 L 96 Room Air 01/20/24 08:00 65 01/20/24 07:20 37.0 C 67 17 114/64 97 Room Air 01/20/24 03:19 36.8 C 67 16 111/64 96 Room Air 01/19/24 23:40 65 Laboratory Results Short CBC 01/20/24 Range/Units 07:20 WBC 5.47 (4.8-10.8) K/ul Hgb 12.5 L (14.0-18.0) g/dl Hct 35.8 L (42.0-52.0) % Plt Count 288 (130-400) K/uL BMP 01/20/24 07:20 Sodium 140 Potassium 4.1 Chloride 106 Carbon Dioxide 25 BUN 17 Creatinine 0.63 Glucose 65 L Calcium 8.8 (1) Foreign body ingestion Encounter type: initial encounter Qualified Code(s): T18.9XXA - Foreign body of alimentary tract, part unspecified, initial encounter (3) Schizoaffective disorder Schizoaffective disorder type: unspecified Qualified Code(s): F25.9 - Schizoaffective disorder, unspecified
[2024-01-20] MEDS: SODIUM CHLORIDE 0.9% 500 ML IV ONE (12:07)
--- NOTE | 2024-01-20 14:38 | GI REPORT ---
[facility] Patient: SHLOMO PANDYA : 1990 Sex at : Male Age: 33 Years Procedure: Colonoscopy Date: 01/20/2024 Attending Physician: Rafa Jewell MD Referring MD: James PACE; Lucas Wolf Md Indications: - Foreign body in the colon Medications: - Monitored Anesthesia Care Complications: - No immediate complications., No immediate complications. Estimated blood loss: Minimal. Estimated Blood Loss: - Estimated blood loss: None. Procedure: - Prior to the procedure, a History and Physical was performed, and patient medications and allergies were reviewed. The patient's tolerance of previous anesthesia was also reviewed. The risks and benefits of the procedure and the sedation options and risks were discussed with the patient. All questions were answered, and informed consent was obtained. Prior Anticoagulants: The patient has taken no anticoagulant or antiplatelet agents. ASA Grade Assessment: II - A patient with mild systemic disease. After reviewing the risks and benefits, the patient was deemed in satisfactory condition to undergo the procedure. - The pediatric colonoscope was introduced through the anus and advanced to the cecum, identified by appendiceal orifice and ileocecal valve. - The colonoscopy was performed without difficulty. - The patient tolerated the procedure well. - The quality of the bowel preparation was fair. - The ileocecal valve, appendiceal orifice, and rectum were photographed. Findings: - The lumen of the colon (entire examined portion) was grossly dilated. - A foreign body was found in the cecum. 2 BATTERIES aaa duracell and 1 pen removed after 3 separate colonoscopies and removal of batteries via peacock net snare and removal of pen via rat tooth forceps. Removal of a battery was accomplished with a Peacock net. Removal of a staple was accomplished with a Raptor grasping device. Impression: - Preparation of the colon was fair. - Dilated colon. - Foreign body in the cecum. Removal was successful. - 2 BATTERIES aaa duracell and 1 pen removed after 3 separate colonoscopies and removal of batteries via peacock net snare and removal of pen via rat tooth forceps. Recommendation: - Discharge patient to home (ambulatory). - Resume previous diet. - Continue present medications. - Return to referring physician as previously scheduled. - Patient has a contact number available for emergencies. The signs and symptoms of potential delayed complications were discussed with the patient. Return to normal activities tomorrow. Written discharge instructions were provided to the patient. Procedure Code(s): - 35760, Colonoscopy, flexible; with removal of foreign body(s) Diagnosis Code(s): - K59.39, Other megacolon - T18.4XXA, Foreign body in colon, initial encounter CPT(R) - 2022 copyright [employer]. All Rights Reserved. The CPT codes, CCI edits and ICD codes generated are intended as suggestions and were generated based on input data. These codes are preliminary and upon snaker driving horses review may be revised to meet current compliance and payer requirements. The provider is responsible for the final determination of appropriate codes, and modifiers. Rafa Jewell MD This document has been electronically signed. Note Initiated:01/20/2024 Note Completed:01/20/2024 2:37 PM \\[email or web address]\Results\[email or web address]\[id number]
[2024-01-20 15:09] VITALS: BP 116/68
[2024-01-20] MEDS: SODIUM CHLORIDE 0.9% 500 ML IV SCH (15:22)
[2024-01-20] MEDS: PROPOFOL IV EMULSION 10 MG/ML 20 ML VIAL IV ONE ×2 (15:23)
[2024-01-20] MEDS: ONDANSETRON INJ 2 MG/ML 2 ML VIAL ONE (15:23)
[2024-01-20] MEDS: LIDOCAINE 2% 2 ML VIAL/AMP(20MG/ML) INFIL ONE (15:23)
[2024-01-20] MEDS: MIDAZOLAM HCL 1 MG/ML 2ML VIAL ONE (15:23)
--- NOTE | 2024-01-20 15:30 | Anesthesiology Progress Note ---
Date of Service January 20, 2024 Anesthesia Post Procedure Vital Signs Vital Signs: Temp Pulse Pulse Pulse Resp BP BP 01/20/24 15:08 60 16 116/68 01/20/24 14:53 67 16 107/74 01/20/24 14:38 36.4 C L 68 12 105/57 L 01/20/24 13:13 36.4 C L 57 L 16 115/71 01/20/24 11:15 36.9 C 65 19 97/59 L 01/20/24 08:00 65 01/20/24 07:20 37.0 C 67 17 114/64 01/20/24 03:19 36.8 C 67 16 111/64 01/19/24 23:40 65 01/19/24 23:06 36.5 C 62 16 121/77 01/19/24 19:13 36.5 C 63 16 110/70 Pulse Ox O2 Del Method 01/20/24 15:08 99 Room Air 01/20/24 14:53 98 Room Air 01/20/24 14:38 97 Room Air 01/20/24 13:13 99 Room Air 01/20/24 11:15 96 Room Air 01/20/24 08:00 01/20/24 07:20 97 Room Air 01/20/24 03:19 96 Room Air 01/19/24 23:40 01/19/24 23:06 95 Room Air 01/19/24 19:13 100 Room Air Pain Intensity Throat: Pain Intensity: 6 Right Abdomen: Pain Intensity: 2 Substernal: Pain Intensity: 5 Transfer of Care Handoff Completed per policy Notes Mental Status: alert / awake / arousable Patient Amnestic to Procedure: Yes Nausea / Vomiting: adequately controlled Pain: adequately controlled Airway Patency, RR, SpO2: stable & adequate BP & HR: stable & adequate Hydration State: stable & adequate Anesthetic Complications: no major complications apparent
[2024-01-20] MEDS: CARBOHYDRATES FOR HYPOGLYCEMIA PO PRN (15:46)
[2024-01-20 15:52] VITALS: RESP 20; TEMP 97.3; O2SAT 100
--- NOTE | 2024-01-20 16:17 | Discharge Summary ---
Discharge Summary Date of Service January 20, 2024 Principal Dx & Hospital Course #1 = Principal Diagnosis (1) Foreign body ingestion: Joya Bravo) is a 33 y/o transgender male that identifies as a female who presented to the ED after ingesting 2 sporks and 1 FlexPen. Was previously admitted 12/21/23-12/22/23 after she swallowed 2 AAA batteries and 2 FlexPens. She had an EGD for foreign body disimpaction done at that time and both FlexPens were able to be removed. Patient does have remaining 2 batteries however that were thought to be able to pass on their own. Patient had an EGD for foreign body disimpaction on 01/16/2024 --> FlexPen was able to be removed however there were multiple erosions noted. No perforation or complications at time of procedure. However patient was noted to still have 2 remaining AAA batteries projecting over the cecum despite taking MiraLAX 3 times daily. Foreign Body Ingestion: Acute --> Confirmed that she ingested 2 sporks and a FlexPen. Additionally with recent AAA x 2 battery ingestion in the prior month. S/p foreign body removal by EGD on 01/16/2024 --> 2 sporks were removed. KUB yesterday showed 2 AAA batteries in the proximal ascending colon and an additional metallic foreign body likely reflecting a portion of a pen projecting over the cecum. Was managed with an IV H2 abhijit twice daily. S/p 4 days of magnesium citrate + Golytely without passing the batteries. GI service with successful removal of the 2 AAA batteries and 1 pen this afternoon with 3 separate colonoscopies. Hypoglycemia - RESOLVED: He had some hypoglycemia later on this afternoon following his colonoscopies that resolved with oral intake. Hypotension - RESOLVED: BP was 97/59 this morning, patient without dizziness or lightheadedness. Likely somewhat dehydrated. 500cc NSS bolus was ordered and his BP improved to 116/68. H/O Seizure Disorder: Continue Keppra, Depakote. No seizures since February 2023. Ativan rescue on-call if needed. Schizoaffective Disorder, Suicidal Ideations: H/O mood disorder, auditory hallucinations, command hallucinations. Denied any hallucinations this afternoon. Psychiatry consulted. Was 1-on-1 previously due to suicidal ideations, which have since resolved. Continue sertraline, risperidone. Psych evaluated the patient on 01/17/2024 --> "option to increase HS risperidone dose to further target these hallucinations vs internal thoughts but given suspicion for component of personality disorder this is less likely to offer any benefit." Will leave psych meds as is, no changes were made. PCP: [facility] Disposition: Patient is being discharged back to [facility] in stable condition. Health services at [facility] was made aware of his discharge via phone call. Made them aware to watch out for hypoglycemia. Patient seen in collaboration with Dr. Wolf. Please see addendum. I spent a total of 60 minutes coordinating, documenting, and providing care for this patient excluding time spent in the performance of separately billed services. This included personally reviewing all current laboratories and imaging studies, medical reconciliation, outpatient chart review and discussion with specialists. This chart was completed in part utilizing Speech Voice Recognition Software. Grammatical errors, random word insertions, pronoun errors, and incomplete sentences are an occasional consequence of this system due to software limitations, ambient noise, and hardware issues. Any formal questions or concerns about the content, text, or information contained within the body of this dictation should be directly addressed to the provider for clarification. Notes For Next Care Provider Please monitor the patient for hypoglycemia. Medication Changes From Visit No medication changes were made during this admission. Admission HPI Per Admitting Provider Jhshamika Rodríguez (Whitney) is a 33-year-old transgendered female who presented from the assisted for foreign body ingestion. Patient had a martinez ingestion, in addition to recent hospitalization for a battery ingestion. Per Sign Out: Was contacted by GI from PACU. Patient did have an EGD for foreign body disimpaction, FlexPen was able to be removed however there were multiple erosions noted. No perforation or complications at time of procedure. Patient does have remaining 2 batteries projecting over the cecum despite taking MiraLAX 3 times daily. Per discussion with GI is recommended to be on clear liquids tonight. Do not want to have on a prep tonight due to removal of pen today and erosions however will need to be placed on a GI prep tomorrow and may need follow-up colonoscopy for battery removal as these are at high risk of eventual breakdown if not passed. Is recommended for ongoing hospitalization and monitoring until that time. Per Pt: Rachele is seen in the PACU postop. Endorses epigastric pain and a sore throat otherwise no acute complaints. Is still somewhat groggy from anesthesia but is oriented to month, year, and place and answers questions appropriately. Denies SI but endorses ongoing command auditory hallucinations which instructed her to try to kill herself which have been present in the last week. Endorses that these hallucinations are still generally present although feels very "out of it "after anesthesia. Reports that she has been diagnosed with schizoaffective disorder outside of [place] although had never been diagnosed with this since being in [place]. Endorses past history of seizure, no seizure since February 2023 and stable on current medications. Did take all prescription medications this morning and confirms Depakote, Keppra, risperidone, sertraline, and thinks mirtazapine. No fevers chills or sweats. No chest pain or chest pressure. Denies history of heart lung or kidney disease. Former tobacco abuse, denies tobacco use in the last year. No alcohol/recreational drug use. Currently incarcerated Allergic to penicillin which causes swelling and hives; and trazodone which "made me crazy " Full code Admission Exam Per Admitting Provider General: A&Ox3. NAD. Cooperative. HEENT: Atraumatic, normocephalic. Vision and hearing grossly intact. Pupils equal and reactive Pulm: CTAB A&P. -wheezes, -rales, -rhonchi. Symmetrical chest rise. No increased work of breathing. No respiratory distress. Cardiac: RRR, -mrg. Radial pulses intact and symmetrical. Abdominal: +epigastric TTP. No involuntary guarding/rebound. Soft. BS increased. Discharge Exam General: WD/WN, vitals as above, NAD, sitting up in bed, pleasant, conversing appropriately. A+Ox3, euthymic affect. HEENT: Normocephalic, atraumatic. PERRL, conjunctivae normal, anicteric sclerae. External ear and nose normal, oropharynx normal. Respiratory: Normal respiratory effort, lungs clear to auscultation, no wheeze, rales, rhonchi. No accessory muscle use. Cardiovascular: Regular rate, rhythm, no murmur, normal peripheral pulses, no BLE edema. Vessels: No JVD. Abdomen/GI: Normal bowel sounds, soft, nontender, no hepatosplenomegaly. Extremities/Musculoskeletal: No cyanosis or clubbing, extremities motor strength intact, moves all extremities. Neurologic: EOMI, no focal deficits, CN's II-XI not formally tested but appear grossly intact bilaterally. Skin: No rashes, normal color, warm/dry. Updated Medication List Medication Instructions Recorded Confirmed Type Depakote ER 500 mg PO BID 12/21/23 01/17/24 History levetiracetam 500 mg tablet 1,500 mg PO BID 12/21/23 01/17/24 History mirtazapine 30 mg PO HS 12/21/23 01/17/24 History risperidone 1 mg tablet 1 mg PO BID 12/21/23 01/17/24 History sertraline 100 mg tablet 100 mg PO HS 12/21/23 01/17/24 History pantoprazole 40 mg tablet,delayed 40 mg PO DAILY 30 days #30 tabs 12/22/23 01/17/24 Rx release polyethylene glycol 3350 17 gram 17 g PO DAILY PRN laxative effect 12/22/23 01/17/24 Rx oral powder packet (Miralax) 30 days #30 ea Hospital Stay Data Consultations 01/16/24 15:23 ED Decision to Admit Stat 01/16/24 18:50 Consult Psychiatry Routine 01/17/24 08:36 Consult Hospitalist Routine Procedures Performed Operation Date: 01/20/24 16:30 Actual Procedures p Colonoscopy Foreign Body Removal - Rafa Jewell MD Discharge Instructions Given to Patient (Per Discharging Provider) You were admitted to the hospital after ingesting 2 sporks and 1 FlexPen. You were also found to have 2 AAA in your large intestine from last month which did not pass as we had previously expected they would. You were seen and evaluated by gastroenterology. You underwent an endoscopy to remove the sporks and a colonoscopy to remove the batteries and FlexPen. Total Time Total Time Spent Total Time Spent (In Minutes): 60 Supervising Physician Co-Signing Physician Notes I have seen and examined the patient at bedside. Discussed the case with the collaborating advanced practitioner. I agree with the documentation as above. I have reviewed and confirmed the patients medical history, the findings on physical examination, and the patients diagnosis and treatment plan with Karon Stringer PA-C and agree with the information documented. Note has been edited as needed. Patient had colonoscopy with successful removal of foreign body Noted hypoglycemic--treated appropriately Tolerated diet postprocedure Plan to be discharged back to correctional facility today Advised to monitor for hypoglycemia at correctional facility on discharge as well
[2024-01-20 17:09] VITALS: PULSE 60
== END 2024-01-20 17:46 | DRG 394 ==
LOC: ED 13:31 → OR 16:14 → 2S 16:14 → SUATTDRO 17:51 → 2S 01-17 21:03
DX: R45.851 Suicidal ideations; G40.909 Epilepsy, unspecified, not intractable, without status epilepticus; Z87.891 Personal history of nicotine dependence; Z79.899 Other long term (current) drug therapy; E16.2 Hypoglycemia, unspecified; W44.8XXA Other foreign body entering into or through a natural orifice, initial encounter; W44.A9XA Other batteries entering into or through a natural orifice, initial encounter; Z88.0 Allergy status to penicillin; E86.0 Dehydration; L50.9 Urticaria, unspecified; Y92.143 Cell of prison as the place of occurrence of the external cause; T18.2XXA Foreign body in stomach, initial encounter; Z88.8 Allergy status to other drugs, medicaments and biological substances; F25.9 Schizoaffective disorder, unspecified; F64.0 Transsexualism; I95.9 Hypotension, unspecified